=== PATIENT | female | born 1940 | race Caucasian/White ===

== ENCOUNTER 2016-10-15 12:18 | Inpatient (IN) | payer MEDICARE, MEDICAID ==
[2016-10-15] MEDS ORDERED: Sodium Chloride 0.9% 10 ML Syringe FLUSH PRN (13:19)
--- NOTE | 2016-10-15 13:24 | EDM.PDOC ---
ED HPI GENERAL MEDICAL PROBLEM - General Chief Complaint: Syncope Stated Complaint: DIZZY Time Seen by Provider: 10/15/16 13:08 Source of Information: Reports: Patient History Limitations: Reports: No Limitations - History of Present Illness INITIAL COMMENTS - FREE TEXT/NARRATIVE: Patient is a 76-year-old female who presents to the ED complaining of dizziness with standing and sitting. Patient states while having her eyes checked she developed dizziness with sitting and had a blood pressure check found it to be a 82 systolic. Upon admission blood pressure is 106/61 with laying. Patient did feel like she was going to pass out. This was resolved with laying down. She is mildly nauseated. She's had one episode of diarrhea yesterday. No blood present with in her stool. She has no pain with urination. She denies any chest pain. Denies increasing shortness of breath. She is chronically on O2 secondary to COPD. O2 sats are 87% on room air. She was placed on 3 L per minute and brought her O2 sats up to 96%. She denies any fever/chills, sore throat, sinus congestion, ear pain, sensation of room spinning, increase edema lower extremities, or additional complaints. Husbands states patient has not being feeling well all year. Took diltiazem and valsartan this a.m. She has no history of DVT/PE and/or valvular disorders. Past Medical History: Breast cancer, COPD, hypertension, GERD Current Medictions: Arformoterol [Brovana] 15 mcg NEB BID 01/13/15 [History] Aspirin [Provencal Aspirin] 81 mg PO DAILY 01/13/15 [History] Benztropine [Cogentin] 1 mg PO DAILY 01/13/15 [History] Budesonide [Pulmicort] 0.5 mg NEB BID 01/13/15 [History] Diltiazem HCl [Cartia Xt] 120 mg PO DAILY 01/13/15 [History] Docusate Sodium [Stool Softener] 200 mg PO ASDIRECTED PRN 01/13/15 [History] Ipratropium [Atrovent HFA Inh] 1 puff INH Q6H PRN 01/13/15 [History] Pantoprazole [Protonix] 40 mg PO DAILY 01/13/15 [History] Trifluoperazine 20 mg PO DAILY 01/13/15 [History] Valsartan 80 mg PO DAILY 01/13/15 [History] Onset: Today Duration: Constant, Waxing/Waning Location: Reports: Generalized Quality: Reports: Other (dizziness) Improves with: Reports: Other (laying down) Worsens with: Reports: Other (sitting/standing) Context: Denies: Activity, Sick Contact, Trauma - Related Data Allergies Allergy/AdvReac Type Severity Reaction Status Date / Time azithromycin Allergy Cannot Verified 10/15/16 18:59 Remember Sulfa (Sulfonamide Allergy Cannot Verified 10/15/16 18:59 Antibiotics) Remember Home Meds: Home Meds Arformoterol [Brovana] 15 mcg NEB BID 01/13/15 [History] Aspirin [Provencal Aspirin] 81 mg PO DAILY 01/13/15 [History] Benztropine [Cogentin] 1 mg PO DAILY 01/13/15 [History] Budesonide [Pulmicort] 0.5 mg NEB BID 01/13/15 [History] Diltiazem HCl [Cartia Xt] 120 mg PO DAILY 01/13/15 [History] Docusate Sodium [Stool Softener] 200 mg PO ASDIRECTED PRN 01/13/15 [History] Ipratropium [Atrovent HFA Inh] 1 puff INH Q6H PRN 01/13/15 [History] Pantoprazole [Protonix] 40 mg PO DAILY 01/13/15 [History] Trifluoperazine 20 mg PO DAILY 01/13/15 [History] Valsartan 80 mg PO DAILY 01/13/15 [History] Past Medical History HEENT History: Reports: Impaired Vision Cardiovascular History: Reports: Hypertension Respiratory History: Reports: Asthma, COPD Gastrointestinal History: Reports: Cholelithiasis, GERD, Hemorrhoids Genitourinary History: Reports: None 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 (Cancer) History: Reports: Breast - Past Surgical History GI Surgical History: Reports: Cholecystectomy, Colonoscopy, EGD Social & Family History - Family History Family Medical History: Noncontributory - Tobacco Use Smoking Status *Q: Former Smoker Used Tobacco, but Quit: No Month Tobacco Last Used: 1999 - Caffeine Use Caffeine Use: Reports: Coffee - Recreational Drug Use Recreational Drug Use: No ED ROS GENERAL - Review of Systems Review Of Systems: See Below Constitutional: Reports: No Symptoms HEENT: Reports: No Symptoms Respiratory: Reports: Shortness of Breath, Cough, Sputum Cardiovascular: Denies: Chest Pain, Dyspnea on Exertion, Lightheadedness, Palpitations, Syncope GI/Abdominal: Reports: Nausea. Denies: Abdominal Pain, Constipation, Diarrhea, Vomiting : Denies: Dysuria Musculoskeletal: Reports: No Symptoms Neurological: Reports: Dizziness (room is not spinning). Denies: Confusion, Headache, Numbness, Syncope, Tingling ED EXAM, GENERAL - Physical Exam Exam: See Below Exam Limited By: No Limitations General Appearance: Alert, WD/WN, No Apparent Distress Eye Exam: Bilateral Eye: PERRL Ears: Hearing Grossly Normal Nose: Normal Inspection Throat/Mouth: Normal Inspection, Normal Oropharynx, Normal Voice, No Airway Compromise Neck: Normal Inspection, Supple, Non-Tender, Full Range of Motion Respiratory/Chest: No Respiratory Distress, No Accessory Muscle Use, Rhonchi, Wheezing Cardiovascular: Normal Peripheral Pulses, Regular Rate, Rhythm, Systolic Murmur Peripheral Pulses: 2+: Radial (R) GI/Abdominal: Normal Bowel Sounds, Soft, Non-Tender, No Organomegaly, No Distention Extremities: Normal Inspection, Non-Tender, Pedal Edema (1+ biltarally) Neurological: Alert, Oriented, CN II-XII Intact, Normal Cognition, No Motor/ Sensory Deficits Psychiatric: Normal Affect, Normal Mood Skin Exam: Warm, Dry, Intact, Normal Color, No Rash Course - Vital Signs Last Recorded V/S: Last Vital Signs Temp 97.7 F 10/15/16 19:06 Pulse 82 10/15/16 19:07 Resp 20 10/15/16 19:06 BP 163/58 H 10/15/16 19:07 Pulse Ox 100 10/15/16 19:08 Orthostatic Blood Pressure [ 130/65 Standing] Orthostatic Blood Pressure [ 138/65 Sitting] Orthostatic Blood Pressure [ 88/65 Supine] - Orders/Labs/Meds Orders: Active Orders 24 hr Category Date Time Status Ambulate [RC] ASDIRECTED Care 10/15/16 16:56 Active Antiembolic Devices [RC] QSHIFT Care 10/15/16 16:58 Active Cardiac Monitoring [RC] CONTINUOUS Care 10/15/16 16:57 Active EKG Documentation Completion [RC] STAT Care 10/15/16 13:19 Active Height and Weight [RC] 04 Care 10/15/16 16:56 Active Intake and Output [RC] 04,16 Care 10/15/16 16:57 Active Orthostatic Vital Signs [RC] ASDIRECTED Care 10/15/16 13:23 Active Oxygen Therapy [RC] PRN Care 10/15/16 16:56 Active RT Aerosol Therapy [RC] ASDIRECTED Care 10/15/16 16:58 Active Up ad Cherelle [RC] ASDIRECTED Care 10/15/16 16:56 Active VTE/DVT Education [RC] PER UNIT ROUTINE Care 10/15/16 16:56 Active Vital Signs [RC] Q4HR Care 10/15/16 16:56 Active Consult to Case Management [CONS] Routine Cons 10/15/16 16:59 Active Consult to Grounds Cleaner [CONS] Routine Cons 10/15/16 16:59 Active Consult to Spiritual Care [CONS] Routine Cons 10/15/16 16:59 Active OT Evaluation and Treatment [CONS] Routine Cons 10/15/16 16:59 Active PT Evaluation and Treatment [CONS] Routine Cons 10/15/16 16:59 Active Regular Diet [DIET] Diet 10/15/16 Dinner Active Brain wo Cont [MR] Stat Exams 10/15/16 17:08 Ordered Echo Comp wo Cont [US] Routine Exams 10/16/16 07:00 Ordered BASIC METABOLIC PANEL,BMP [CHEM] AM Lab 10/16/16 05:11 Ordered BASIC METABOLIC PANEL,BMP [CHEM] AM Lab 10/17/16 05:11 Ordered BASIC METABOLIC PANEL,BMP [CHEM] AM Lab 10/18/16 05:11 Ordered BASIC METABOLIC PANEL,BMP [CHEM] AM Lab 10/19/16 05:11 Ordered BASIC METABOLIC PANEL,BMP [CHEM] AM Lab 10/20/16 05:11 Ordered CBC WITH AUTO DIFF [HEME] AM Lab 10/16/16 05:11 Ordered CBC WITH AUTO DIFF [HEME] AM Lab 10/17/16 05:11 Ordered CBC WITH AUTO DIFF [HEME] AM Lab 10/18/16 05:11 Ordered CBC WITH AUTO DIFF [HEME] AM Lab 10/19/16 05:11 Ordered CBC WITH AUTO DIFF [HEME] AM Lab 10/20/16 05:11 Ordered MAGNESIUM [CHEM] AM Lab 10/16/16 05:11 Ordered MAGNESIUM [CHEM] AM Lab 10/17/16 05:11 Ordered MAGNESIUM [CHEM] AM Lab 10/18/16 05:11 Ordered MAGNESIUM [CHEM] AM Lab 10/19/16 05:11 Ordered MAGNESIUM [CHEM] AM Lab 10/20/16 05:11 Ordered Acetaminophen [Tylenol] Med 10/15/16 16:56 Active 650 mg PO Q4H PRN Acetaminophen/HYDROcodone [[place] 325-5 MG] Med 10/15/16 16:56 Active 1 tab PO Q4H PRN Albuterol/Ipratropium [DuoNeb 3.0-0.5 MG/3 ML] Med 10/15/16 16:56 Active 3 ml NEB Q4H PRN Arformoterol Med 10/15/16 21:00 Pending 15 mcg NEB BID Aspirin Med 10/16/16 09:00 Active 81 mg PO DAILY Benztropine [Cogentin] Med 10/16/16 09:00 Active 1 mg PO DAILY Bisacodyl [Dulcolax] Med 10/15/16 16:56 Active 5 mg PO DAILY PRN Budesonide [Pulmicort] Med 10/15/16 21:00 Active 0.5 mg NEB BID Docusate Sodium [Stool Softener] Med 10/15/16 17:01 Pending 200 mg PO ASDIRECTED PRN Docusate Sodium/Sennosides [Senna Plus] Med 10/15/16 16:56 Active 1 tab PO BID PRN HYDROmorphone [Dilaudid] Med 10/15/16 17:16 Active 0.25 mg IVPUSH Q2H PRN Ipratropium [Atrovent HFA] Med 10/15/16 17:01 Active 0 gm INH Q6H PRN LORazepam [Ativan] Med 10/15/16 16:56 Active 0.5 mg IV Q6H PRN Meclizine [Antivert] Med 10/15/16 17:10 Active 25 mg PO Q6H PRN Ondansetron [Zofran] Med 10/15/16 16:56 Active 4 mg IV Q6H PRN Polyethylene Glycol 3350 [MiraLAX] Med 10/15/16 16:56 Active 17 gm PO DAILY PRN Promethazine [Phenergan] 12.5 mg Med 10/15/16 16:56 Active Sodium Chloride 0.9% [Normal Saline] 50 ml IV Q6H Sodium Chloride 0.9% [Normal Saline] 1,000 ml Med 10/15/16 17:15 Active IV ASDIRECTED Sodium Chloride 0.9% [Saline Flush] Med 10/15/16 13:19 Active 10 ml FLUSH ASDIRECTED PRN Temazepam [Restoril] Med 10/15/16 17:30 Active 7.5 mg PO BEDTIME PRN Trifluoperazine Med 10/16/16 09:00 Active 20 mg PO DAILY Peripheral IV Insertion Adult [OM.PC] Stat Oth 10/15/16 13:19 Ordered Precautions [COMM] Routine Ot 10/15/16 17:10 Ordered Sequential Compression Device [OM.PC] Per Unit Routine Oth 10/15/16 16:57 Ordered Resuscitation Status Routine Resus Stat 10/15/16 16:56 Ordered Medication Orders Acetaminophen (Tylenol) 650 mg PO Q4H PRN PRN Reason: Pain (Mild 1-3)/fever Hydrocodone Bitart/Acetaminophen ([place] 325-5 Mg) 1 tab PO Q4H PRN PRN Reason: Pain (moderate 4-6) Albuterol/Ipratropium (Duoneb 3.0-0.5 Mg/3 Ml) 3 ml NEB Q4H PRN PRN Reason: Shortness Of Breath/wheezing Aspirin (Aspirin) 81 mg PO DAILY MAREK Benztropine Mesylate (Cogentin) 1 mg PO DAILY MAREK Bisacodyl (Dulcolax) 5 mg PO DAILY PRN PRN Reason: Constipation Budesonide (Pulmicort) 0.5 mg NEB BID MAREK Hydromorphone HCl (Dilaudid) 0.25 mg IVPUSH Q2H PRN PRN Reason: Pain (severe 7-10) Promethazine HCl 12.5 mg/ (Sodium Chloride) 50.5 mls @ 100 mls/hr IV Q6H PRN PRN Reason: Nausea/Vomiting Sodium Chloride (Normal Saline) 1,000 mls @ 100 mls/hr IV ASDIRECTED MAREK Ipratropium [place] (Atrovent Hfa) 0 gm INH Q6H PRN PRN Reason: Shortness of Breath Lorazepam (Ativan) 0.5 mg IV Q6H PRN PRN Reason: Anxiety Meclizine HCl (Antivert) 25 mg PO Q6H PRN PRN Reason: Dizziness Non-Formulary Medication (Arformoterol) 15 mcg NEB BID MAREK Non-Formulary Medication (Docusate Sodium [Stool Softener]) 200 mg PO ASDIRECTED PRN PRN Reason: Constipation Ondansetron HCl (Zofran) 4 mg IV Q6H PRN PRN Reason: Nausea/Vomiting Polyethylene Glycol (Miralax) 17 gm PO DAILY PRN PRN Reason: Constipation Senna/Docusate Sodium (Senna Plus) 1 tab PO BID PRN PRN Reason: Constipation Sodium Chloride (Saline Flush) 10 ml FLUSH ASDIRECTED PRN PRN Reason: Keep Vein Open Last Admin: 10/15/16 13:36 Dose: 10 ml Temazepam (Restoril) 7.5 mg PO BEDTIME PRN PRN Reason: Sleep Trifluoperazine HCl (Trifluoperazine) 20 mg PO DAILY [facility] Labs: Laboratory Tests 10/15/16 10/15/16 10/15/16 Range/Units 13:35 13:35 14:40 WBC 7.80 (3.98-10.04) K/mm3 RBC 4.57 (3.98-5.22) M/mm3 Hgb 13.3 (11.2-15.7) gm/L Hct 41.1 (34.1-44.9) % MCV 89.9 (79.4-94.8) fl MCH 29.1 (25.6-32.2) pg MCHC 32.4 (32.2-35.5) g/dl RDW Std Deviation 44.6 (36.4-46.3) fL Plt Count 222 (182-369) K/mm3 MPV 10.3 (9.4-12.3) fl Neut % (Auto) 71.2 H (34.0-71.1) % Lymph % (Auto) 17.1 L (19.3-51.7) % [place] % (Auto) 10.1 (4.7-12.5) % Eos % (Auto) 1.4 (0.7-5.8) Baso % (Auto) 0.1 (0.1-1.2) % Neut # (Auto) 5.55 (1.56-6.13) K/mm3 Lymph # (Auto) 1.33 (1.18-3.74) K/mm3 [place] # (Auto) 0.79 H (0.24-0.36) K/mm3 Eos # (Auto) 0.11 (0.04-0.36) K/mm3 Baso # (Auto) 0.01 (0.01-0.08) K/mm3 Sodium 144 (136-145) mEq/L Potassium 3.7 (3.5-5.1) mEq/L Chloride 107 (98-107) mEq/L Carbon Dioxide 33 H (21-32) mEq/L Anion Gap 7.7 (5-15) BUN 18 (7-18) mg/dL Creatinine 1.2 H (0.55-1.02) mg/dL Est Cr Clr Drug Dosing 40.38 mL/min Estimated GFR (MDRD) 43 (>60) mL/min BUN/Creatinine Ratio 15.0 (14-18) Glucose 115 (83-115) mg/dL Calcium 9.5 (8.5-10.1) mg/dL Total Bilirubin 0.5 (0.2-1.0) mg/dL AST 17 (15-37) U/L ALT 19 (14-59) U/L Alkaline Phosphatase 93 (46-116) U/L Troponin I < 0.017 (0.00-0.056) ng/mL Total Protein 6.7 (6.4-8.2) g/dl Albumin 3.3 L (3.4-5.0) g/dl Globulin 3.4 gm/dL Albumin/Globulin Ratio 1.0 (1-2) TSH 3rd Generation 2.139 (0.358-3.74) uIU/mL Urine Color Yellow (Yellow) Urine Appearance Slt cloudy H (Clear) Urine pH 5.5 (5.0-8.0) Ur Specific [place] 1.025 (1.005-1.030) Urine Protein 2+ H (Negative) Urine Glucose (UA) Negative (Negative) Urine Ketones Trace H (Negative) Urine Occult Blood Trace-intact H (Negative) Urine Nitrite Negative (Negative) Urine Bilirubin 2+ H (Negative) Urine Urobilinogen 1.0 (0.2-1.0) Ur Leukocyte Esterase Negative (Negative) Urine RBC 0-5 (0-5) /hpf Urine WBC 0-5 (0-5) /hpf Ur Epithelial Cells Not Reportable Ur Squamous Epith Cells 5-10 H (0-5) /hpf Amorphous Sediment Moderate H (NOT SEEN) /hpf Urine Bacteria Moderate H (FEW) /hpf Hyaline Casts 20-30 H (0-5) /lpf Urine Mucus Not seen (FEW) /hpf Meds: Medications Generic Name Dose Route Start Last Admin Trade Name Freq PRN Reason Stop Dose Admin Acetaminophen 650 mg 10/15/16 16:56 Tylenol PO Q4H PRN Pain (Mild 1-3)/fever Hydrocodone Bitart/Acetaminophen 1 tab 10/15/16 16:56 [place] 325-5 Mg PO Q4H PRN Pain (moderate 4-6) Albuterol/Ipratropium 3 ml 10/15/16 16:56 Duoneb 3.0-0.5 Mg/3 Ml NEB Q4H PRN Shortness Of Breath/wheezing Aspirin 81 mg 10/16/16 09:00 Aspirin PO DAILY MAREK Benztropine Mesylate 1 mg 10/16/16 09:00 Cogentin PO DAILY MAREK Bisacodyl 5 mg 10/15/16 16:56 Dulcolax PO DAILY PRN Constipation Budesonide 0.5 mg 10/15/16 21:00 Pulmicort NEB BID MAREK Hydromorphone HCl 0.25 mg 10/15/16 17:16 Dilaudid IVPUSH Q2H PRN Pain (severe 7-10) Promethazine HCl 12.5 mg/ 50.5 mls @ 100 mls/hr 10/15/16 16:56 Sodium Chloride IV Q6H PRN Nausea/Vomiting Sodium Chloride 1,000 mls @ 100 mls/hr 10/15/16 17:15 Normal Saline IV ASDIRECTED MAREK Ipratropium [place] 0 gm 10/15/16 17:01 Atrovent Hfa INH Q6H PRN Shortness of Breath Lorazepam 0.5 mg 10/15/16 16:56 Ativan IV Q6H PRN Anxiety Meclizine HCl 25 mg 10/15/16 17:10 Antivert PO Q6H PRN Dizziness Non-Formulary Medication 15 mcg 10/15/16 21:00 Arformoterol NEB BID MAREK Non-Formulary Medication 200 mg 10/15/16 17:01 Docusate Sodium [Stool Softener] PO ASDIRECTED PRN Constipation Ondansetron HCl 4 mg 10/15/16 16:56 Zofran IV Q6H PRN Nausea/Vomiting Polyethylene Glycol 17 gm 10/15/16 16:56 Miralax PO DAILY PRN Constipation Senna/Docusate Sodium 1 tab 10/15/16 16:56 Senna Plus PO BID PRN Constipation Sodium Chloride 10 ml 10/15/16 13:19 10/15/16 13:36 Saline Flush FLUSH 10 ml ASDIRECTED PRN Administration Keep Vein Open Temazepam 7.5 mg 10/15/16 17:30 Restoril PO BEDTIME PRN Sleep Trifluoperazine HCl 20 mg 10/16/16 09:00 Trifluoperazine PO DAILY MAREK Discontinued Medications Generic Name Dose Route Start Last Admin Trade Name Freq PRN Reason Stop Dose Admin Hydromorphone HCl 0.25 mg 10/15/16 16:56 Dilaudid IVPUSH Q2H PRN Pain (severe 7-10) Sodium Chloride 500 mls @ 250 mls/hr 10/15/16 13:26 10/15/16 13:35 Normal Saline IV 10/15/16 15:25 250 mls/hr .BOLUS ONE Administration - Re-Assessments/Exams Free Text/Narrative Re-Assessment/Exam: 10/15/16 13:28 ordered peripheral IV with normal saline 250 mL per hour bolus. Initial labs/studies include: Chest x-ray, CBC, chem 14, troponin, TSH, UA, Hemoccult, and also orthostatic vitals. Orthostatic vitals were positive. EKG revealed: Sinus rhythm at a rate of 73 with multiple multifocal PVCs, no acute ST changes noted. Chest x-ray revealed: No acute findings. Reviewed with Dr. Jane. Final interpretation pending. Labs reveal: CBC and chem 14 were essentially normal. Creatinine 1.2, TSH 2.139 , troponin less than 0.017. 10/15/16 14:07 Hemoccult was negative. 10/15/16 15:[address] Jane suggested stopping the diltiazem and have the patient reevaluated in 1-2 weeks in the clinic for further evaluation and treatment of blood pressure. Patient states she has a history of CHF. NO echocardiogram obtained here. Do not want to fluid overload her thus stopped at 500 mls bolus of ns. Orthostatic hypotension has not resolved. 10/15/16 16:[address] Bran leasing consultant hospitalist he requests obtaining MRI of the brain with and without contrast. Radiology was contacted unable to at this point. 10/15/16 16:44 MCG obtained. Patient meets inpatient status do to orthostatic vitals and dizziness. 10/15/16 16:56 Reassessment, blood pressure with standing is trending upward. Last BP was 100 systolic. Patient's dizziness is improving. She did ambulate to the bathroom with minimal difficulties. She does not want to be admitted to the hospital. Will monitor the patient for another hour and ensure her blood pressure continues to trend northward. Patient is okay with this plan. If trending downward patient will be admitted to the hospital. 10/15/16 18:20 BP Recheck 90/systolic with dizziness. Attempted to contact Dr. Bran with no luck. Will attempt again in a few minutes. 183 Nursing staff has been in contact with Dr. Bran and nursing staff. Patient will be admitted to observation for hypotension/dizziness. Departure - Departure Time of Disposition: 18:33 Disposition: Refer to Observation Condition: good Clinical Impression: Hypotension due to drugs, Dizziness - My Orders Last 24 Hours: My Active Orders 10/15/16 13:19 EKG Documentation Completion [RC] STAT Sodium Chloride 0.9% [Saline Flush] 10 ml FLUSH ASDIRECTED PRN Peripheral IV Insertion Adult [OM.PC] Stat 10/15/16 13:23 Orthostatic Vital Signs [RC] ASDIRECTED - Assessment/Plan Last 24 Hours: My Active Orders 10/15/16 13:19 EKG Documentation Completion [RC] STAT Sodium Chloride 0.9% [Saline Flush] 10 ml FLUSH ASDIRECTED PRN Peripheral IV Insertion Adult [OM.PC] Stat 10/15/16 13:23 Orthostatic Vital Signs [RC] ASDIRECTED
[2016-10-15] MEDS ORDERED: Sodium Chloride 0.9% 500 ML IV ONE (13:26)
--- NOTE | 2016-10-15 15:45 | CR ---
Chest: Two views of the chest were obtained. Comparison: Previous chest x-ray of 02/10/16. Heart size and mediastinum are normal. Minimal apical pleural thickening is seen which is stable. Lungs are clear with no acute infiltrates. Impression: 1. Hyperinflated lungs compatible with emphysematous change. Nothing acute is appreciated on two-view chest x-ray. Diagnostic code #2
[2016-10-15] MEDS ORDERED: Albuterol/Ipratropium 3.0-0.5 MG/3 ML Neb Soln NEB PRN (16:56)
[2016-10-15] MEDS ORDERED: Bisacodyl 5 MG Tab PO PRN (16:56)
[2016-10-15] MEDS ORDERED: Promethazine 12.5 MG in Sodium Chloride 0.9% 50 ML IV PRN (16:56)
[2016-10-15] MEDS ORDERED: Polyethylene Glycol 3350 Powder 17 GM Packet PO PRN (16:56)
[2016-10-15] MEDS ORDERED: Acetaminophen 325 MG Tab PO PRN (16:56)
[2016-10-15] MEDS ORDERED: Ondansetron 4 MG/2 ML SDV IV PRN (16:56)
[2016-10-15] MEDS ORDERED: Acetaminophen/HYDROcodone 325-5 MG Tab PO PRN (16:56)
[2016-10-15] MEDS ORDERED: LORazepam 2 MG/ML MDV IV PRN (16:56)
[2016-10-15] MEDS ORDERED: HYDROmorphone 1 MG/ML Syringe IVPUSH PRN (16:56)
--- NOTE | 2016-10-15 16:56 | PCM.HP ---
H&P History of Present Illness - General Date of Service: 10/15/16 Admit Problem/Dx: Orthostatic Hypotension and Dizziness Source of Information: Patient, Old Records, Provider, RN Notes Reviewed History Limitations: Reports: No Limitations - History of Present Illness Initial Comments - Free Text/Narative: This is a 76-year-old elderly white female with past medical history of COPD, hypertension, GERD, cholelithiasis, and questionable Parkinsonian syndrome who comes in with complaints dizziness with standing and sitting. Patient states she almost passed out. Her symptom improves with laying down. She is nauseated but without emesis. She denies any previous history in the past. Patient denies any systemic infection. No recent upper respiratory infection. Per patient patient she has not been feeling well all year. On presentation the emergency department she was found to have orthostatic hypotension. Her initial ED workup shows a fairly unremarkable her CBC and chemistry. Her UA shows contamination. EKG shows sinus rhythm with multiple PVCs. She is Hemoccult negative. CT scan report of her head reads no acute intracranial abnormality. Patient is being admitted for medical management and evaluation of dizziness/dis -equilibrium. She is CPR only. Neck Pain Score (Numeric/FACES): 8 - Related Data Allergies/Adverse Reactions: Allergies Allergy/AdvReac Type Severity Reaction Status Date / Time azithromycin Allergy Cannot Verified 10/15/16 18:59 Remember Sulfa (Sulfonamide Allergy Cannot Verified 10/15/16 18:59 Antibiotics) Remember Home Medications: Home Meds Arformoterol [Brovana] 15 mcg NEB BID 01/13/15 [History] Aspirin [[place] Aspirin] 81 mg PO DAILY 01/13/15 [History] Benztropine [Cogentin] 1 mg PO DAILY 01/13/15 [History] Budesonide [Pulmicort] 0.5 mg NEB BID 01/13/15 [History] Diltiazem HCl [[place] Xt] 120 mg PO DAILY 01/13/15 [History] Docusate Sodium [Stool Softener] 200 mg PO ASDIRECTED PRN 01/13/15 [History] Ipratropium [Atrovent HFA Inh] 1 puff INH Q6H PRN 01/13/15 [History] Pantoprazole [Protonix] 40 mg PO DAILY 01/13/15 [History] Trifluoperazine 20 mg PO DAILY 01/13/15 [History] Valsartan 80 mg PO DAILY 01/13/15 [History] Past Medical History HEENT History: Reports: Impaired Vision Cardiovascular History: Reports: Hypertension Respiratory History: Reports: Asthma, COPD Gastrointestinal History: Reports: Cholelithiasis, GERD, Hemorrhoids Genitourinary History: Reports: None SIDE STAPLER History: Reports: Oncologic (Cancer) History: Reports: Breast - Past Surgical History GI Surgical History: Reports: Cholecystectomy, Colonoscopy, EGD Social & Family History - Family History Family Medical History: Noncontributory - Tobacco Use Smoking Status *Q: Former Smoker Used Tobacco, but Quit: No Month Tobacco Last Used: 1999 - Caffeine Use Caffeine Use: Reports: Coffee - Recreational Drug Use Recreational Drug Use: No H&P Review of Systems - Review of Systems: Review Of Systems: See Below General: Denies: Fever, Chills, Malaise, Weakness, Fatigue HEENT: Reports: No Symptoms Pulmonary: Reports: Shortness of Breath, Cough, Sputum Cardiovascular: Reports: Blood Pressure Problem. Denies: Chest Pain, Palpitations, Dyspnea on Exertion, Lightheadedness, Syncope, Claudication Gastrointestinal: Denies: Abdominal Pain, Nausea, Vomiting Genitourinary: Reports: No Symptoms Musculoskeletal: Reports: No Symptoms Skin: Denies: Cyanosis, Rash, Erythema Psychiatric: Denies: Depression, Anxiety, Hallucinations Neurological: Reports: Dizziness. Denies: Confusion, Difficulty Walking, Weakness, Gait Disturbance Hematologic/Lymphatic: Reports: No Symptoms Immunologic: Reports: No Symptoms Exam - Exam Exam: See Below - Vital Signs Vital Signs: Last Vital Signs Temp 36.2 C 10/15/16 13:02 Pulse 71 10/15/16 13:02 Resp 18 10/15/16 13:02 BP 106/61 10/15/16 13:02 Pulse Ox 87 L 10/15/16 13:02 Orthostatic Blood Pressure [ 130/65 Standing] Orthostatic Blood Pressure [ 138/65 Sitting] Orthostatic Blood Pressure [ 88/65 Supine] Weight: 78.925 kg - Exam General: Alert, Oriented, Cooperative, Mild Distress HEENT: Conjunctiva Clear, EACs Clear, EOMI, Hearing Intact, Mucosa Moist & [place] [address] , Nares Patent, Normal Nasal Septum, Posterior Pharynx Clear, Pupils Equal, Pupils Reactive, Other (No nystagmus) Neck: Supple, Trachea Midline Lungs: Clear to Auscultation, Normal Respiratory Effort Cardiovascular: Regular Rate, Regular Rhythm Abdomen: Normal Bowel Sounds, Soft. No: Organomegaly, Tenderness (Female) Exam: Deferred Rectal (Female) Exam: Deferred Back Exam: Normal Inspection, Decreased Range of Motion Extremities: Normal Inspection, Normal Pulses Peripheral Pulses: 2+: Posterior Tibial (L), Posterior Tibial (R), Dorsalis Pedis (L), Dorsalis Pedis (R) Skin: Warm, Dry, Intact Neuro Extensive - Mental Status: Oriented x3, Normal Cognition, Memory Intact Neuro Extensive - Motor, Sensory, Reflexes: CN II-XII Intact (limited but fairly intact), Abnormal Gait Psychiatric: Alert, Normal Affect, Normal Mood - Patient Data Lab Results last 24 hrs: Laboratory Results - last 24 hr 10/15/16 10/15/16 10/15/16 Range/Units 13:35 13:35 14:40 WBC 7.80 (3.98-10.04) K/mm3 RBC 4.57 (3.98-5.22) M/mm3 Hgb 13.3 (11.2-15.7) gm/L Hct 41.1 (34.1-44.9) % MCV 89.9 (79.4-94.8) fl MCH 29.1 (25.6-32.2) pg MCHC 32.4 (32.2-35.5) g/dl RDW Std Deviation 44.6 (36.4-46.3) fL Plt Count 222 (182-369) K/mm3 MPV 10.3 (9.4-12.3) fl Neut % (Auto) 71.2 H (34.0-71.1) % Lymph % (Auto) 17.1 L (19.3-51.7) % [place] % (Auto) 10.1 (4.7-12.5) % Eos % (Auto) 1.4 (0.7-5.8) Baso % (Auto) 0.1 (0.1-1.2) % Neut # (Auto) 5.55 (1.56-6.13) K/mm3 Lymph # (Auto) 1.33 (1.18-3.74) K/mm3 [place] # (Auto) 0.79 H (0.24-0.36) K/mm3 Eos # (Auto) 0.11 (0.04-0.36) K/mm3 Baso # (Auto) 0.01 (0.01-0.08) K/mm3 Sodium 144 (136-145) mEq/L Potassium 3.7 (3.5-5.1) mEq/L Chloride 107 (98-107) mEq/L Carbon Dioxide 33 H (21-32) mEq/L Anion Gap 7.7 (5-15) BUN 18 (7-18) mg/dL Creatinine 1.2 H (0.55-1.02) mg/dL Est Cr Clr Drug Dosing 40.38 mL/min Estimated GFR (MDRD) 43 (>60) mL/min BUN/Creatinine Ratio 15.0 (14-18) Glucose 115 (83-115) mg/dL Calcium 9.5 (8.5-10.1) mg/dL Total Bilirubin 0.5 (0.2-1.0) mg/dL AST 17 (15-37) U/L ALT 19 (14-59) U/L Alkaline Phosphatase 93 (46-116) U/L Troponin I < 0.017 (0.00-0.056) ng/mL Total Protein 6.7 (6.4-8.2) g/dl Albumin 3.3 L (3.4-5.0) g/dl Globulin 3.4 gm/dL Albumin/Globulin Ratio 1.0 (1-2) TSH 3rd Generation 2.139 (0.358-3.74) uIU/mL Urine Color Yellow (Yellow) Urine Appearance Slt cloudy H (Clear) Urine pH 5.5 (5.0-8.0) Ur Specific [place] 1.025 (1.005-1.030) Urine Protein 2+ H (Negative) Urine Glucose (UA) Negative (Negative) Urine Ketones Trace H (Negative) Urine Occult Blood Trace-intact H (Negative) Urine Nitrite Negative (Negative) Urine Bilirubin 2+ H (Negative) Urine Urobilinogen 1.0 (0.2-1.0) Ur Leukocyte Esterase Negative (Negative) Urine RBC 0-5 (0-5) /hpf Urine WBC 0-5 (0-5) /hpf Ur Epithelial Cells Not Reportable Ur Squamous Epith Cells 5-10 H (0-5) /hpf Amorphous Sediment Moderate H (NOT SEEN) /hpf Urine Bacteria Moderate H (FEW) /hpf Hyaline Casts 20-30 H (0-5) /lpf Urine Mucus Not seen (FEW) /hpf Result Diagrams: 10/16/16 06:47 10/16/16 06:47 *Q Meaningful Use (ADM) - VTE *Q VTE Criteria *Q: - Stroke *Q Stroke Criteria *Q: - AMI *Q AMI Criteria *Q: Problem List Initiated/Reviewed/Updated: Yes Orders Last 24hrs: Active Orders 24 hr Category Date Time Status EKG Documentation Completion [RC] STAT Care 10/15/16 13:19 Active Orthostatic Vital Signs [RC] ASDIRECTED Care 10/15/16 13:23 Active Peripheral IV Care [RC] . DIRECTED Care 10/15/16 13:19 Active Sodium Chloride 0.9% [Saline Flush] Med 10/15/16 13:19 Active 10 ml FLUSH ASDIRECTED PRN Peripheral IV Insertion Adult [OM.PC] Stat Oth 10/15/16 13:19 Ordered Medication Orders Sodium Chloride (Saline Flush) 10 ml FLUSH ASDIRECTED PRN PRN Reason: Keep Vein Open Last Admin: 10/15/16 13:36 Dose: 10 ml Assessment/Plan Comment:: Assessment/Plan: Acute: Orthostatic Hypotension - Had near syncope - Pos with BP as low at 88/65 mmHg - On BP meds: Cardizem 120 mg po daily and Valsartan 80 mg po daily - IVF to improve volume status Dizziness/Disequilibrium (Unsteadiness) - Has Hx/o Abnormal Rhythm (racing and pounding heart beats in the past) - EKG Sinus Rhythm with multiple PVCs - Head CT scan reads no acute intra-cranial abnormality - MRI to r/o vestibular and cerebellar abnormality - She is on multiple meds to cause dizziness - 2D echo and EKG in am - Labs fairly unremarkable - PRN medications for symptomatic control - Telemetry Chronic: Impaired Vision HTN COPD/Asthma GERD Cholelithiasis CKD Stage 3 Query PD/Parkinson's Syndrome (Trifluoperazine and Cogentin) Hx/o Breast Cancer Plan: Admit to the floor w/ Tele Routine AM Labs Resume Home Meds except BP meds PT/OT consult Fall Precautions SW/CM for d/c planning Additional orders as above Code status: CPR only
[2016-10-15] MEDS ORDERED: Ipratropium 12.9 GM Inhaler INH PRN (17:01)
[2016-10-15] MEDS ORDERED: Docusate Sodium 100 MG Cap PO PRN (17:01)
[2016-10-15] MEDS ORDERED: HYDROmorphone 0.5 MG/0.5 ML Syringe IVPUSH PRN (17:16)
[2016-10-15] MEDS ORDERED: Temazepam 7.5 MG Cap PO PRN (17:30)
--- NOTE | 2016-10-15 17:31 | CT ---
Head CT Technique: Multiple axial sections through the brain were obtained. Intravenous contrast was not utilized. Comparison: No previous head CT exam, previous MRI brain dated 04/19/09. Findings: Ventricles along the basal cisterns and sulci over the convexities are mildly prominent. Mild areas of diminished density are noted within the periventricular and subcortical white matter compatible with small vessel ischemic demyelination change. No evidence of intracranial hemorrhage is seen. Minimal areas diminished density noted within portions the basal ganglia which are felt to be of similar etiology. No midline shift or mass effect is seen. Bone window settings were reviewed which shows no discrete calvarial abnormality. Impression: 1. Mild senescent change as described above. No acute intracranial abnormality is identified. Diagnostic code #2
[2016-10-15] MEDS ORDERED: BUDESONIDE 0.5 MG/2 ML NEB SCH (21:00)
[2016-10-15] MEDS ORDERED: Scopolamine 1.5 MG Transdermal Patch TOP ONE (23:29)
[2016-10-15] MEDS ORDERED: Diphtheria,Pertussis(Acell),Tetanus Vaccine 0.5 ML SDV inactive IM ONE (23:48)
[2016-10-16] MEDS: BENZTROPINE 1 MG PO SCH ×2 (00:05→20:51)
[2016-10-16] MEDS: TRIFLUOPERAZINE 10 MG PO SCH ×2 (00:05→20:51)
[2016-10-16] MEDS: Sodium Chloride 0.9% 1,000 ML IV SCH ×2 (00:46→12:40)
[2016-10-16] MEDS: BUDESONIDE 0.5 MG/2 ML NEB SCH ×3 (02:54→20:39)
[2016-10-16] MEDS ORDERED: Diphtheria,Pertussis(Acell),Tetanus Vaccine 0.5 ML SDV inactive IM ONE (06:51)
[2016-10-16] MEDS: Aspirin 81 MG Tab.Chew PO SCH (08:44)
--- NOTE | 2016-10-16 10:16 | PCM.PN ---
- General Info Date of Service: 10/16/16 Admission Dx/Problem (Free Text): Orthostatic Hypotension and Dizziness Subjective Update: Follow Up Functional Status: Reports: pain controlled, tolerating diet, ambulating, urinating. Denies: new symptoms - Review of Systems General: Denies: Fever, Chills HEENT: Reports: no symptoms Pulmonary: Denies: shortness of breath Cardiovascular: Reports: Lightheadedness. Denies: Chest Pain Gastrointestinal: Reports: Nausea. Denies: Abdominal pain, Vomiting Genitourinary: Reports: no symptoms Musculoskeletal: Reports: no symptoms Skin: Denies: cyanosis, rash Neurological: Reports: Dizziness Psychiatric: Denies: confusion, depression, anxiety, hallucinations, suicidal ideation Systems Review Comment:: No overnight issues. She seems to be better. She is nauseous but was able to tolerate her breakfast. She feels about to pass out and lightheaded. PTand OT have not been in to see her. Per nuclear monitoring technician, her heart rate jumps in the teens to 120s when she gets up. - Patient Data Vitals - most recent: Last Vital Signs Temp 37.0 C 10/16/16 08:02 Pulse 75 10/16/16 08:02 Resp 16 10/16/16 08:02 BP 129/94 H 10/16/16 08:02 Pulse Ox 99 10/16/16 08:02 Weight - most recent: 78.925 kg I&O - last 24 hours: Intake & Output 10/15/16 10/16/16 10/16/16 22:59 06:59 14:59 Intake Total 584 Balance 584 Lab Results last 24 hrs: Laboratory Results - last 24 hr 10/16/16 10/16/16 10/16/16 Range/Units 06:47 06:47 06:47 WBC 5.62 (3.98-10.04) K/mm3 RBC 3.89 L (3.98-5.22) M/mm3 Hgb 11.2 (11.2-15.7) gm/L Hct 35.3 (34.1-44.9) % MCV 90.7 (79.4-94.8) fl MCH 28.8 (25.6-32.2) pg MCHC 31.7 L (32.2-35.5) g/dl RDW Std Deviation 45.0 (36.4-46.3) fL Plt Count 201 (182-369) K/mm3 MPV 10.4 (9.4-12.3) fl Neut % (Auto) 53.0 (34.0-71.1) % Lymph % (Auto) 32.2 (19.3-51.7) % [place] % (Auto) 10.9 (4.7-12.5) % Eos % (Auto) 3.7 (0.7-5.8) Baso % (Auto) 0.0 L (0.1-1.2) % Neut # (Auto) 2.98 (1.56-6.13) K/mm3 Lymph # (Auto) 1.81 (1.18-3.74) K/mm3 [place] # (Auto) 0.61 H (0.24-0.36) K/mm3 Eos # (Auto) 0.21 (0.04-0.36) K/mm3 Baso # (Auto) 0.00 L (0.01-0.08) K/mm3 Sodium 144 (136-145) mEq/L Potassium 3.1 L (3.5-5.1) mEq/L Chloride 108 H (98-107) mEq/L Carbon Dioxide 30 (21-32) mEq/L Anion Gap 9.1 (5-15) BUN 18 (7-18) mg/dL Creatinine 1.0 (0.55-1.02) mg/dL Est Cr Clr Drug Dosing 48.45 mL/min Estimated GFR (MDRD) 54 (>60) mL/min BUN/Creatinine Ratio 18.0 (14-18) Glucose 116 H (83-115) mg/dL Calcium 9.0 (8.5-10.1) mg/dL Magnesium 1.6 L (1.8-2.4) mg/dl Vitamin B12 236 (193-986) pg/ml Folate 16.0 (8.6-58.9) ng/mL Free T4 1.17 (0.76-1.46) ng/dL TSH 3rd Generation 2.155 (0.358-3.74) uIU/mL Med Orders - Current: Current Medications Acetaminophen (Tylenol) 650 mg PO Q4H PRN PRN Reason: Pain (Mild 1-3)/fever Hydrocodone Bitart/Acetaminophen ([place] 325-5 Mg) 1 tab PO Q4H PRN PRN Reason: Pain (moderate 4-6) Albuterol/Ipratropium (Duoneb 3.0-0.5 Mg/3 Ml) 3 ml NEB Q4H PRN PRN Reason: Shortness Of Breath/wheezing Aspirin (Aspirin) 81 mg PO DAILY [facility] Last Admin: 10/16/16 08:44 Dose: 81 mg Benztropine Mesylate (Cogentin) 1 mg PO BEDTIME [facility] Last Admin: 10/16/16 00:05 Dose: 1 mg Bisacodyl (Dulcolax) 5 mg PO DAILY PRN PRN Reason: Constipation Budesonide (Pulmicort) 0.5 mg NEB BIDRT [facility] Last Admin: 10/16/16 06:06 Dose: 0.5 mg Docusate Sodium (Colace) 200 mg PO DAILY PRN PRN Reason: Constipation Hydromorphone HCl (Dilaudid) 0.25 mg IVPUSH Q2H PRN PRN Reason: Pain (severe 7-10) Promethazine HCl 12.5 mg/ (Sodium Chloride) 50.5 mls @ 100 mls/hr IV Q6H PRN PRN Reason: Nausea/Vomiting Sodium Chloride (Normal Saline) 1,000 mls @ 100 mls/hr IV ASDIRECTED [facility] Last Admin: 10/16/16 00:46 Dose: 100 mls/hr Ipratropium [place] (Atrovent Hfa) 0 gm INH Q6H PRN PRN Reason: Shortness of Breath Lorazepam (Ativan) 0.5 mg IV Q6H PRN PRN Reason: Anxiety Meclizine HCl (Antivert) 25 mg PO Q6H PRN PRN Reason: Dizziness (Arformoterol 15 Mcg ()*Pt Own Med*) 15 mcg NEB BIDRT [facility] Last Admin: 10/16/16 06:06 Dose: 15 mcg Ondansetron HCl (Zofran) 4 mg IV Q6H PRN PRN Reason: Nausea/Vomiting Trifluoperazine 10 (Mg Tab* Pt Own Med*) 2 each PO BEDTIME [facility] Last Admin: 10/16/16 00:05 Dose: 2 each Polyethylene Glycol (Miralax) 17 gm PO DAILY PRN PRN Reason: Constipation Senna/Docusate Sodium (Senna Plus) 1 tab PO BID PRN PRN Reason: Constipation Sodium Chloride (Saline Flush) 10 ml FLUSH ASDIRECTED PRN PRN Reason: Keep Vein Open Last Admin: 10/15/16 13:36 Dose: 10 ml Temazepam (Restoril) 7.5 mg PO BEDTIME PRN PRN Reason: Sleep Last Admin: 10/16/16 00:04 Dose: 7.5 mg Discontinued Medications Budesonide (Pulmicort) 0.5 mg NEB BID [facility] Last Admin: 10/15/16 20:39 Dose: 0.5 mg Diphtheria/Tetanus/Acell Pertussis (Boostrix) 0.5 ml IM .ONCE ONE Stop: 10/15/16 23:49 Diphtheria/Tetanus/Acell Pertussis (Boostrix) 0.5 ml IM .ONCE ONE Stop: 10/16/16 06:52 Hydromorphone HCl (Dilaudid) 0.25 mg IVPUSH Q2H PRN PRN Reason: Pain (severe 7-10) Sodium Chloride (Normal Saline) 500 mls @ 250 mls/hr IV .BOLUS ONE Stop: 10/15/16 15:25 Last Admin: 10/15/16 13:35 Dose: 250 mls/hr Scopolamine (Transderm-Scop) 1.5 mg TOP ONETIME ONE Stop: 10/15/16 23:30 Last Admin: 10/16/16 00:03 Dose: 1.5 mg Trifluoperazine HCl (Trifluoperazine) 20 mg PO BEDTIME [facility] Last Admin: 10/16/16 05:18 Dose: Not Given - Exam General: alert, oriented, cooperative, no acute distress HEENT: Pupils equal, Pupils reactive, EOMI, Mucous membr. moist/pink Neck: supple, trachea midline, no JVD Lungs: Clear to auscultation, Normal respiratory effort Cardiovascular: Regular Rate, Regular Rhythm Abdomen: bowel sounds present, soft, no tenderness, no distension (Female) Exam: Deferred Back Exam: Normal Inspection, Decreased Range of Motion Extremities: no edema, no clubbing, no calf tenderness Peripheral Pulses: 2+: Dorsalis Pedis (L), Dorsalis Pedis (R) Skin: warm, dry, intact, ecchymosis Neurological: no new focal deficit Psy/Mental Status: alert, normal affect, normal mood - Problem List Review Problem List Initiated/Reviewed/Updated: Yes - My Orders Last 24 Hours: My Active Orders 10/15/16 23:00 Budesonide [Pulmicort] 0.5 mg NEB BIDRT Patient's Own Medication [Ptom] 2 each PO BEDTIME 10/16/16 06:47 VITAMIN B-1 THIAMINE, PLASMA [REF] Routine VITAMIN D 25-HYROXY (D2, D3) [REF] Routine 10/16/16 06:51 Vaccines to be Administered [RC] PER UNIT ROUTINE - Plan Plan:: Assessment/Plan: Acute: Dizziness/Unsteadiness - Has Hx/o Abnormal Rhythm (racing and pounding heart beats in the past) - EKG Sinus Rhythm with multiple PVCs - Head CT scan reads no acute intra-cranial abnormality - MRI to r/o vestibular and cerebellar abnormality-pending - She is on multiple meds to cause dizziness - 2D echo pending - EKG this am shows SR with PVCs - PRN medications for symptomatic control - Telemetry - Maybe related to cardiac rhythm awaiting MRI and 2D echo Resolved: S/p Orthostatic Hypotension - Had near syncope - Pos with BP as low at 88/65 mmHg - Her pressures now have improved - On BP meds: Cardizem 120 mg po daily and Valsartan 80 mg po daily Chronic: Impaired Vision HTN COPD/Asthma on 3L NC baseline GERD Cholelithiasis CKD Stage 3 Query PD/Parkinson's Syndrome (Trifluoperazine and Cogentin) Hx/o Breast Cancer Plan: She is still symptomatic but her vitals are now stable Routine AM Labs Resume Home Meds except BP meds Continue PT/OT SW/CM for d/c planning Additional orders a above Code status: 1
--- NOTE | 2016-10-16 12:39 | MR ---
MRI brain Technique: T1 sagittal; T2, diffusion, T1 and T2 flair axial; T1 FLAIR coronal images were obtained through the brain. Comparison: Previous head CT study of 10/15/16. Findings: Ventricles along with basal cisterns and sulci over the convexities are mildly prominent. Normal signal void is seen within the major cerebral arteries within the skull base. Increased signal seen within portions of the periventricular and subcortical white matter which is compatible with small vessel ischemic demyelination change. 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 No acute diffusion abnormalities are seen. No abnormal signal is seen within the brainstem. No abnormality is seen within the cerebellopontine angle cisterns. Impression: 1. Senescent change as described above. No acute diffusion abnormalities/or other abnormality is appreciated. Diagnostic code #2
[2016-10-16] MEDS: Losartan 25 MG Tab PO SCH (12:40)
[2016-10-16] MEDS: Diltiazem 120 MG Cap.CD PO SCH (12:40)
[2016-10-16] MEDS ORDERED: Magnesium Sulfate/Water 2 GM in Premix Bag 1 BAG IV ONE (13:00)
[2016-10-16] MEDS: Potassium Chloride 20 MEQ Tab.ER PO SCH ×2 (13:41→16:21)
[2016-10-17] MEDS: BUDESONIDE 0.5 MG/2 ML NEB SCH (06:15)
--- NOTE | 2016-10-17 07:23 | PCM.PN ---
- General Info Date of Service: 10/17/16 Admission Dx/Problem (Free Text): Orthostatic Hypotension and Dizziness Subjective Update: Follow Up Functional Status: Reports: pain controlled, tolerating diet, urinating. Denies : new symptoms - Patient Data Vitals - most recent: Last Vital Signs Temp 36.4 C 10/16/16 12:43 Pulse 81 10/16/16 12:43 Resp 20 10/16/16 12:43 BP 131/68 10/16/16 12:43 Pulse Ox 100 10/17/16 06:17 Weight - most recent: 78.97 kg I&O - last 24 hours: Intake & Output 10/16/16 10/17/16 10/17/16 22:59 06:59 14:59 Intake Total 1728 2007 Output Total 200 Balance 1528 2007 Lab Results last 24 hrs: Laboratory Results - last 24 hr 10/17/16 10/17/16 Range/Units 05:25 05:25 WBC 5.33 (3.98-10.04) K/mm3 RBC 3.70 L (3.98-5.22) M/mm3 Hgb 10.9 L (11.2-15.7) gm/L Hct 33.8 L (34.1-44.9) % MCV 91.4 (79.4-94.8) fl MCH 29.5 (25.6-32.2) pg MCHC 32.2 (32.2-35.5) g/dl RDW Std Deviation 45.1 (36.4-46.3) fL Plt Count 184 (182-369) K/mm3 MPV 10.6 (9.4-12.3) fl Neut % (Auto) 45.4 (34.0-71.1) % Lymph % (Auto) 37.1 (19.3-51.7) % [place] % (Auto) 12.2 (4.7-12.5) % Eos % (Auto) 4.9 (0.7-5.8) Baso % (Auto) 0.2 (0.1-1.2) % Neut # (Auto) 2.42 (1.56-6.13) K/mm3 Lymph # (Auto) 1.98 (1.18-3.74) K/mm3 [place] # (Auto) 0.65 H (0.24-0.36) K/mm3 Eos # (Auto) 0.26 (0.04-0.36) K/mm3 Baso # (Auto) 0.01 (0.01-0.08) K/mm3 Sodium 143 (136-145) mEq/L Potassium 4.0 (3.5-5.1) mEq/L Chloride 110 H (98-107) mEq/L Carbon Dioxide 28 (21-32) mEq/L Anion Gap 9.0 (5-15) BUN 12 (7-18) mg/dL Creatinine 0.7 (0.55-1.02) mg/dL Est Cr Clr Drug Dosing 69.22 mL/min Estimated GFR (MDRD) > 60 (>60) mL/min BUN/Creatinine Ratio 17.1 (14-18) Glucose 97 (83-115) mg/dL Calcium 8.5 (8.5-10.1) mg/dL Magnesium 2.0 (1.8-2.4) mg/dl Med Orders - Current: Current Medications Acetaminophen (Tylenol) 650 mg PO Q4H PRN PRN Reason: Pain (Mild 1-3)/fever Hydrocodone Bitart/Acetaminophen ([place] 325-5 Mg) 1 tab PO Q4H PRN PRN Reason: Pain (moderate 4-6) Albuterol/Ipratropium (Duoneb 3.0-0.5 Mg/3 Ml) 3 ml NEB Q4H PRN PRN Reason: Shortness Of Breath/wheezing Aspirin (Aspirin) 81 mg PO DAILY [facility] Last Admin: 10/16/16 08:44 Dose: 81 mg Benztropine Mesylate (Cogentin) 1 mg PO BEDTIME [facility] Last Admin: 10/16/16 20:51 Dose: 1 mg Bisacodyl (Dulcolax) 5 mg PO DAILY PRN PRN Reason: Constipation Budesonide (Pulmicort) 0.5 mg NEB BIDRT [facility] Last Admin: 10/17/16 06:15 Dose: 0.5 mg Diltiazem HCl (Cardizem Cd) 120 mg PO DAILY [facility] Last Admin: 10/16/16 12:40 Dose: 120 mg Docusate Sodium (Colace) 200 mg PO DAILY PRN PRN Reason: Constipation Hydromorphone HCl (Dilaudid) 0.25 mg IVPUSH Q2H PRN PRN Reason: Pain (severe 7-10) Promethazine HCl 12.5 mg/ (Sodium Chloride) 50.5 mls @ 100 mls/hr IV Q6H PRN PRN Reason: Nausea/Vomiting Sodium Chloride (Normal Saline) 1,000 mls @ 100 mls/hr IV ASDIRECTED [facility] Last Admin: 10/16/16 12:40 Dose: 100 mls/hr Ipratropium [place] (Atrovent Hfa) 0 gm INH Q6H PRN PRN Reason: Shortness of Breath Lorazepam (Ativan) 0.5 mg IV Q6H PRN PRN Reason: Anxiety Losartan Potassium (Cozaar) 50 mg PO DAILY [facility] Last Admin: 10/16/16 12:40 Dose: 50 mg Magnesium Sulfate (Pharmacy To Dose - Magnesium Replacement) 1 dose .XX ASDIRECTED [facility] Meclizine HCl (Antivert) 25 mg PO Q6H PRN PRN Reason: Dizziness (Arformoterol 15 Mcg ()*Pt Own Med*) 15 mcg NEB BIDRT [facility] Last Admin: 10/17/16 06:14 Dose: 15 mcg Ondansetron HCl (Zofran) 4 mg IV Q6H PRN PRN Reason: Nausea/Vomiting Trifluoperazine 10 (Mg Tab* Pt Own Med*) 2 each PO BEDTIME [facility] Last Admin: 10/16/16 20:51 Dose: 2 each Polyethylene Glycol (Miralax) 17 gm PO DAILY PRN PRN Reason: Constipation Potassium Chloride (Pharmacy To Dose - Potassium Replacement) 1 dose .XX ASDIRECTED [facility] Senna/Docusate Sodium (Senna Plus) 1 tab PO BID PRN PRN Reason: Constipation Sodium Chloride (Saline Flush) 10 ml FLUSH ASDIRECTED PRN PRN Reason: Keep Vein Open Last Admin: 10/15/16 13:36 Dose: 10 ml Temazepam (Restoril) 7.5 mg PO BEDTIME PRN PRN Reason: Sleep Last Admin: 10/16/16 00:04 Dose: 7.5 mg Discontinued Medications Budesonide (Pulmicort) 0.5 mg NEB BID [facility] Last Admin: 10/15/16 20:39 Dose: 0.5 mg Diphtheria/Tetanus/Acell Pertussis (Boostrix) 0.5 ml IM .ONCE ONE Stop: 10/15/16 23:49 Diphtheria/Tetanus/Acell Pertussis (Boostrix) 0.5 ml IM .ONCE ONE Stop: 10/16/16 06:52 Hydromorphone HCl (Dilaudid) 0.25 mg IVPUSH Q2H PRN PRN Reason: Pain (severe 7-10) Sodium Chloride (Normal Saline) 500 mls @ 250 mls/hr IV .BOLUS ONE Stop: 10/15/16 15:25 Last Admin: 10/15/16 13:35 Dose: 250 mls/hr Magnesium Sulfate 2 gm/ Premix 50 mls @ 25 mls/hr IV ONETIME ONE Stop: 10/16/16 14:59 Last Admin: 10/16/16 13:41 Dose: 25 mls/hr Potassium Chloride (Klor-Con M20) 40 meq PO Q4H [facility] Stop: 10/16/16 16:46 Last Admin: 10/16/16 16:21 Dose: 40 meq Scopolamine (Transderm-Scop) 1.5 mg TOP ONETIME ONE Stop: 10/15/16 23:30 Last Admin: 10/16/16 00:03 Dose: 1.5 mg Trifluoperazine HCl (Trifluoperazine) 20 mg PO BEDTIME [facility] Last Admin: 10/16/16 05:18 Dose: Not Given - Plan Plan:: Assessment/Plan: Acute: Dizziness/Unsteadiness - Has Hx/o Abnormal Rhythm (racing and pounding heart beats in the past) - EKG Sinus Rhythm with multiple PVCs - Head CT scan reads no acute intra-cranial abnormality - MRI to r/o vestibular and cerebellar abnormality-pending - She is on multiple meds to cause dizziness - 2D echo pending - EKG this am shows SR with PVCs - PRN medications for symptomatic control - Telemetry - Maybe related to cardiac rhythm awaiting MRI and 2D echo Resolved: S/p Orthostatic Hypotension - Had near syncope - Pos with BP as low at 88/65 mmHg - Her pressures now have improved - On BP meds: Cardizem 120 mg po daily and Valsartan 80 mg po daily Chronic: Impaired Vision HTN COPD/Asthma on 3L NC baseline GERD Cholelithiasis CKD Stage 3 Query PD/Parkinson's Syndrome (Trifluoperazine and Cogentin) Hx/o Breast Cancer Plan: She is still symptomatic but her vitals are now stable Routine AM Labs Resume Home Meds except BP meds Continue PT/OT SW/CM for d/c planning Additional orders a above Code status: 1
[2016-10-17] MEDS: Losartan 25 MG Tab PO SCH (08:58)
[2016-10-17] MEDS: Diltiazem 120 MG Cap.CD PO SCH (08:59)
[2016-10-17] MEDS: Aspirin 81 MG Tab.Chew PO SCH (08:59)
--- NOTE | 2016-10-17 09:32 | PCM.DCSUM1 ---
Discharge Summary - Hospital Course Brief History: This is a 76-year-old elderly white female with past medical history of COPD, hypertension, GERD, cholelithiasis, and questionable Parkinsonian syndrome who comes in with complaints dizziness with standing and sitting. She was admitted for medical management of Disequilibrium Syndrome and Orthostatic Hypotension. - Discharge Data Discharge Date: 10/17/16 Discharge Disposition: Home, Self-Care 01 Condition: Good - Discharge Diagnosis/Problem(s) (1) Dysrhythmia, cardiac SNOMED Code(s): 302926322 ICD Code: I49.9 - CARDIAC ARRHYTHMIA, UNSPECIFIED Status: Acute Current Visit: Yes Qualifiers: Arrhythmia type: unspecified cardiac arrhythmia Qualified Code(s): I49.9 - Cardiac arrhythmia, unspecified (2) Dizziness SNOMED Code(s): 525899662, 703476820 ICD Code: R42 - DIZZINESS AND GIDDINESS Status: Acute Current Visit: Yes (3) Hypotension due to drugs Status: Resolved Current Visit: Yes - Patient Summary/Data Operative Procedure(s) Performed: None Complications: None - Patient Instructions Diet: Heart Healthy Diet, Usual Diet as Tolerated Activity: As Tolerated Driving: Do Not Drive Showering/Bathing: May Shower Notify Provider of: Fever, Increased Pain, Nausea and/or Vomiting - Discharge Plan Home Medications: Home Meds Arformoterol [Brovana] 15 mcg NEB BID 01/13/15 [History] Aspirin [[place] Aspirin] 81 mg PO DAILY 01/13/15 [History] Benztropine [Cogentin] 1 mg PO DAILY 01/13/15 [History] Budesonide [Pulmicort] 0.5 mg NEB BID 01/13/15 [History] Diltiazem HCl [[place] Xt] 120 mg PO DAILY 01/13/15 [History] Docusate Sodium [Stool Softener] 200 mg PO ASDIRECTED PRN 01/13/15 [History] Ipratropium [Atrovent HFA Inh] 1 puff INH Q6H PRN 01/13/15 [History] Pantoprazole [Protonix] 40 mg PO DAILY 01/13/15 [History] Trifluoperazine 20 mg PO DAILY 01/13/15 [History] Valsartan 80 mg PO DAILY 01/13/15 [History] Patient Handouts: Orthostatic Hypotension, Hypoxemia, Chronic Obstructive Pulmonary Disease, [id number], Syncope, [id number] Referrals: Tito Durand MD [Ordering Only Provider] - 10/24/16 1:00 pm (This appt. is in [place], if this date and time does not work for you please call and reschedule. This appt. is central time.) Mahnaz Lama MD [Physician] - 11/09/16 9:00 am (Appointment is in Central Standard Time. Please arrive at 0900 for testing and 1000 for appointment to see physician. This is the passenger service supervisor appt.) Cecelia Kaur [Physician] - 10/22/16 9:00 am (Hospital follow-up appointment and to establish primary care with physician. Please arrive at [facility] at 0845 for check-in. [address] [place] [address].) - Discharge Summary/Plan Comment DC Time >30 min.: Yes (45 mins) Discharge Summary/Plan Comment: Discharge to Home with [facility] Face to face Documentation: - General Info Date of Service: 10/17/16 Admission Dx/Problem (Free Text: Orthostatic Hypotension and Dizziness Subjective Update: Follow Up Functional Status: Reports: pain controlled, tolerating diet, ambulating, urinating - Review of Systems General: Denies: Fever, Weakness, Chills HEENT: Reports: no symptoms Pulmonary: Denies: shortness of breath Cardiovascular: Denies: Chest Pain, Palpitations, Dyspnea on Exertion, Lightheadedness Gastrointestinal: Denies: Abdominal pain, Nausea, Vomiting Genitourinary: Reports: no symptoms Musculoskeletal: Reports: joint pain (right hip) Skin: Reports: no symptoms Neurological: Reports: Gait Disturbance. Denies: Confusion, Seizure, Weakness Psychiatric: Denies: depression, anxiety, hallucinations Systems Review Comment: No overnight or acute issues. She feels better but still has some lingering dizziness/lightheadedness. Her pressures are stable. She complaints of right groin pain. She has no bowel pain or issues with her bladder. No abnormal telemetry recorded overnight. - Patient Data Vitals - Most Recent: Last Vital Signs Temp 36.4 C 10/17/16 07:55 Pulse 84 10/17/16 08:59 Resp 12 10/17/16 07:55 BP 130/58 L 10/17/16 08:59 Pulse Ox 100 10/17/16 07:55 Weight - Most Recent: 78.97 kg I&O - Last 24 hours: Intake & Output 10/16/16 10/17/16 10/17/16 22:59 06:59 14:59 Intake Total 1728 2007 Output Total 200 Balance 1528 2007 Lab Results - Last 24 hrs: Laboratory Results - last 24 hr 10/17/16 10/17/16 Range/Units 05:25 05:25 WBC 5.33 (3.98-10.04) K/mm3 RBC 3.70 L (3.98-5.22) M/mm3 Hgb 10.9 L (11.2-15.7) gm/L Hct 33.8 L (34.1-44.9) % MCV 91.4 (79.4-94.8) fl MCH 29.5 (25.6-32.2) pg MCHC 32.2 (32.2-35.5) g/dl RDW Std Deviation 45.1 (36.4-46.3) fL Plt Count 184 (182-369) K/mm3 MPV 10.6 (9.4-12.3) fl Neut % (Auto) 45.4 (34.0-71.1) % Lymph % (Auto) 37.1 (19.3-51.7) % [place] % (Auto) 12.2 (4.7-12.5) % Eos % (Auto) 4.9 (0.7-5.8) Baso % (Auto) 0.2 (0.1-1.2) % Neut # (Auto) 2.42 (1.56-6.13) K/mm3 Lymph # (Auto) 1.98 (1.18-3.74) K/mm3 [place] # (Auto) 0.65 H (0.24-0.36) K/mm3 Eos # (Auto) 0.26 (0.04-0.36) K/mm3 Baso # (Auto) 0.01 (0.01-0.08) K/mm3 Sodium 143 (136-145) mEq/L Potassium 4.0 (3.5-5.1) mEq/L Chloride 110 H (98-107) mEq/L Carbon Dioxide 28 (21-32) mEq/L Anion Gap 9.0 (5-15) BUN 12 (7-18) mg/dL Creatinine 0.7 (0.55-1.02) mg/dL Est Cr Clr Drug Dosing 69.22 mL/min Estimated GFR (MDRD) > 60 (>60) mL/min BUN/Creatinine Ratio 17.1 (14-18) Glucose 97 (83-115) mg/dL Calcium 8.5 (8.5-10.1) mg/dL Magnesium 2.0 (1.8-2.4) mg/dl Med Orders - Current: Current Medications Acetaminophen (Tylenol) 650 mg PO Q4H PRN PRN Reason: Pain (Mild 1-3)/fever Hydrocodone Bitart/Acetaminophen ([place] 325-5 Mg) 1 tab PO Q4H PRN PRN Reason: Pain (moderate 4-6) Albuterol/Ipratropium (Duoneb 3.0-0.5 Mg/3 Ml) 3 ml NEB Q4H PRN PRN Reason: Shortness Of Breath/wheezing Aspirin (Aspirin) 81 mg PO DAILY [facility] Last Admin: 10/17/16 08:59 Dose: 81 mg Benztropine Mesylate (Cogentin) 1 mg PO BEDTIME [facility] Last Admin: 10/16/16 20:51 Dose: 1 mg Bisacodyl (Dulcolax) 5 mg PO DAILY PRN PRN Reason: Constipation Budesonide (Pulmicort) 0.5 mg NEB BIDRT [facility] Last Admin: 10/17/16 06:15 Dose: 0.5 mg Diltiazem HCl (Cardizem Cd) 120 mg PO DAILY [facility] Last Admin: 10/17/16 08:59 Dose: 120 mg Docusate Sodium (Colace) 200 mg PO DAILY PRN PRN Reason: Constipation Hydromorphone HCl (Dilaudid) 0.25 mg IVPUSH Q2H PRN PRN Reason: Pain (severe 7-10) Promethazine HCl 12.5 mg/ (Sodium Chloride) 50.5 mls @ 100 mls/hr IV Q6H PRN PRN Reason: Nausea/Vomiting Sodium Chloride (Normal Saline) 1,000 mls @ 100 mls/hr IV ASDIRECTED [facility] Last Admin: 10/16/16 12:40 Dose: 100 mls/hr Ipratropium [place] (Atrovent Hfa) 0 gm INH Q6H PRN PRN Reason: Shortness of Breath Lorazepam (Ativan) 0.5 mg IV Q6H PRN PRN Reason: Anxiety Losartan Potassium (Cozaar) 50 mg PO DAILY [facility] Last Admin: 10/17/16 08:58 Dose: 50 mg Magnesium Sulfate (Pharmacy To Dose - Magnesium Replacement) 1 dose .XX ASDIRECTED [facility] Meclizine HCl (Antivert) 25 mg PO Q6H PRN PRN Reason: Dizziness (Arformoterol 15 Mcg ()*Pt Own Med*) 15 mcg NEB BIDRT [facility] Last Admin: 10/17/16 06:14 Dose: 15 mcg Ondansetron HCl (Zofran) 4 mg IV Q6H PRN PRN Reason: Nausea/Vomiting Trifluoperazine 10 (Mg Tab* Pt Own Med*) 2 each PO BEDTIME [facility] Last Admin: 10/16/16 20:51 Dose: 2 each Polyethylene Glycol (Miralax) 17 gm PO DAILY PRN PRN Reason: Constipation Potassium Chloride (Pharmacy To Dose - Potassium Replacement) 1 dose .XX ASDIRECTED [facility] Senna/Docusate Sodium (Senna Plus) 1 tab PO BID PRN PRN Reason: Constipation Sodium Chloride (Saline Flush) 10 ml FLUSH ASDIRECTED PRN PRN Reason: Keep Vein Open Last Admin: 10/15/16 13:36 Dose: 10 ml Temazepam (Restoril) 7.5 mg PO BEDTIME PRN PRN Reason: Sleep Last Admin: 10/16/16 00:04 Dose: 7.5 mg Discontinued Medications Budesonide (Pulmicort) 0.5 mg NEB BID [facility] Last Admin: 10/15/16 20:39 Dose: 0.5 mg Diphtheria/Tetanus/Acell Pertussis (Boostrix) 0.5 ml IM .ONCE ONE Stop: 10/15/16 23:49 Diphtheria/Tetanus/Acell Pertussis (Boostrix) 0.5 ml IM .ONCE ONE Stop: 10/16/16 06:52 Hydromorphone HCl (Dilaudid) 0.25 mg IVPUSH Q2H PRN PRN Reason: Pain (severe 7-10) Sodium Chloride (Normal Saline) 500 mls @ 250 mls/hr IV .BOLUS ONE Stop: 10/15/16 15:25 Last Admin: 10/15/16 13:35 Dose: 250 mls/hr Magnesium Sulfate 2 gm/ Premix 50 mls @ 25 mls/hr IV ONETIME ONE Stop: 10/16/16 14:59 Last Admin: 10/16/16 13:41 Dose: 25 mls/hr Potassium Chloride (Klor-Con M20) 40 meq PO Q4H [facility] Stop: 10/16/16 16:46 Last Admin: 10/16/16 16:21 Dose: 40 meq Scopolamine (Transderm-Scop) 1.5 mg TOP ONETIME ONE Stop: 10/15/16 23:30 Last Admin: 10/16/16 00:03 Dose: 1.5 mg Trifluoperazine HCl (Trifluoperazine) 20 mg PO BEDTIME [facility] Last Admin: 10/16/16 05:18 Dose: Not Given - Exam General: Reports: alert, oriented, cooperative, no acute distress HEENT: Reports: Pupils equal, Pupils reactive, EOMI, Mucous membr. moist/pink Neck: Reports: supple, trachea midline, no JVD Lungs: Reports: Clear to auscultation, Normal respiratory effort Cardiovascular: Reports: Regular Rate, Regular Rhythm Abdomen: Reports: bowel sounds present, soft, no tenderness, no distension (Female) Exam: Deferred Rectal (Female) Exam: Deferred Back Exam: Reports: Normal Inspection, Decreased Range of Motion Extremities: Reports: no edema, normal pulses, no tenderness/swelling, no clubbing, no cyanosis, no calf tenderness Skin: Reports: warm, dry, intact Neurological: Reports: no new focal deficit Psy/Mental Status: Reports: alert, normal affect, normal mood *Q Meaningful Use (DIS) - VTE *Q VTE Criteria *Q: - Stroke *Q Stroke Criteria *Q: - AMI *Q AMI Criteria *Q:
--- NOTE | 2016-10-17 10:53 | CR ---
Right hip: AP and frog-leg lateral views of the right hip were obtained. Comparison: No previous right hip exam. Right hip prosthesis is seen. Components are aligned. Underlying bony structures are intact. Impression: 1. Right hip prosthesis. No abnormality is appreciated. Diagnostic code #2
[2016-10-17 15:05] VITALS: BP 128/64
== END 2016-10-17 16:30 | disposition home or self-care (01) | DRG 312 ==
LOC: JD.ED 12:18 → UNDOADMOB 18:36 → JD.MS 18:36 → OBSVTOIN 10-16 12:19 → JD.MS 10-16 15:51
PROVIDERS: ADMIT Internal Medicine; ATTEND Internal Medicine
DX: I95.2 Hypotension due to drugs (principal); I49.9 Cardiac arrhythmia, unspecified; R55 Syncope and collapse; R42 Dizziness and giddiness; J44.9 Chronic obstructive pulmonary disease, unspecified; J45.909 Unspecified asthma, uncomplicated; K21.9 Gastro-esophageal reflux disease without esophagitis; Z79.82 Long term (current) use of aspirin; H54.7 Unspecified visual loss; Z87.891 Personal history of nicotine dependence; I49.3 Ventricular premature depolarization; R06.02 Shortness of breath; Z99.81 Dependence on supplemental oxygen; M25.551 Pain in right hip; I12.9 Hypertensive chronic kidney disease with stage 1 through stage 4 chronic kidney disease, or unspecified chronic kidney disease; N18.3 Chronic kidney disease, stage 3 (moderate); Z85.3 Personal history of malignant neoplasm of breast; Z88.2 Allergy status to sulfonamides; Z88.1 Allergy status to other antibiotic agents; Z79.899 Other long term (current) drug therapy
CPT/HCPCS: 36415 ×2; 70450; 70551; 71020; 80048; 80053; 81001; 82270; 82306; 82607; 82746; 83735; 84425; 84439; 84443 ×2; 84484; 85025 ×2; 93005 ×2; 93306; 94640; 94664; 94760; 96360; 96361 ×2; 99285; A9270 ×5; G0378; J7040 ×2; J7050; P9612; 73502-26-RT; 73502-RT; 94761; 97110-GP; 97116-GP; 97162-GP; 97167-GO; 97530-GO; 97535-GO; 99284; J3475

== ENCOUNTER 2016-12-08 17:55 | Emergency (ER) | payer MEDICARE, MEDICAID ==
[2016-12-08 18:09] VITALS: BP 100/80
--- NOTE | 2016-12-08 18:19 | EDM.PDOC ---
ED HPI GENERAL MEDICAL PROBLEM - General Chief Complaint: ENT Problem Stated Complaint: SORE IN NOSE Time Seen by Provider: 12/08/16 18:10 Source of Information: Reports: Patient History Limitations: Reports: No Limitations - History of Present Illness INITIAL COMMENTS - FREE TEXT/NARRATIVE: 76-year-old female presents to the ED with painful sore inside her left naris. Patient states a been gradually getting worse over the last 2 weeks. Note the patient is chronically oxygen dependent and has nasal prongs in her nose all the time. He has a good idea that the nasal prongs are causing the problem. There's been no bleeding from the naris. No excessive mucus or rhinitis she does not use any intranasal sprays. She fell recently or just before coming into the hospital and injured her left knee as well. She can still weight-bear however. Onset: Gradual (Over the last 2 weeks.) Duration: Day(s):, Chronic, Getting Worse Location: Reports: Other (Inner aspect left nose) Quality: Reports: Burning, Stabbing Severity: Moderate Improves with: Reports: None Worsens with: Reports: Other Context: Reports: Other (Use of chronic nasal prongs for COPD and oxygen treatment). Denies: Activity, Exercise (Touching the area), Lifting, Sick Contact, Trauma Associated Symptoms: Reports: No Other Symptoms Treatments ECONOMICS CONSULTANT: Reports: Other (see below) (None.) Nose Pain Score (Numeric/FACES): 8 - Related Data Allergies Allergy/AdvReac Type Severity Reaction Status Date / Time azithromycin Allergy Cannot Verified 12/08/16 18:03 Remember Sulfa (Sulfonamide Allergy Cannot Verified 12/08/16 18:03 Antibiotics) Remember Home Meds: Home Meds Arformoterol [Brovana] 15 mcg NEB BID 01/13/15 [History] Aspirin [Candler Aspirin] 81 mg PO DAILY 01/13/15 [History] Benztropine [Cogentin] 1 mg PO DAILY 01/13/15 [History] Budesonide [Pulmicort] 0.5 mg NEB BID 01/13/15 [History] Docusate Sodium [Stool Softener] 200 mg PO ASDIRECTED PRN 01/13/15 [History] Ipratropium [Atrovent HFA] 1 puff INH Q6H PRN 01/13/15 [History] Pantoprazole [ProTONIX] 40 mg PO DAILY 01/13/15 [History] Trifluoperazine 20 mg PO DAILY 01/13/15 [History] Valsartan 80 mg PO DAILY 01/13/15 [History] Diltiazem HCl [Cartia Xt] 120 mg PO DAILY #0 10/17/16 [Rx] Meclizine [Antivert] 25 mg PO Q6H PRN #20 tab.chew 10/17/16 [Rx] Mupirocin Oint [Bactroban Oint] 22 gm TOP TID #1 tube 12/08/16 [Rx] Past Medical History HEENT History: Reports: Impaired Vision Cardiovascular History: Reports: Hypertension Respiratory History: Reports: Asthma, COPD Gastrointestinal History: Reports: Cholelithiasis, GERD, Hemorrhoids Genitourinary History: Reports: None RN TELEPHONIC History: Reports: Musculoskeletal History: Reports: Back Pain, Chronic, Fracture Psychiatric History: Reports: Anxiety, Schizophrenia, Other (See Below) Other Psychiatric History: pt reports she would hear voices and she saw therapy for that. the voices went away after she turned to the [employer] 10 years ago. Oncologic (Cancer) History: Reports: Breast - Infectious Disease History Infectious Disease History: Reports: Chicken Pox, Influenza, Measles, Mumps - Past Surgical History GI Surgical History: Reports: Cholecystectomy, Colonoscopy, EGD Musculoskeletal Surgical History: Reports: Hip Replacement Social & Family History - Family History Family Medical History: Noncontributory - Tobacco Use Smoking Status *Q: Former Smoker Years of Tobacco use: 50 Packs/Tins Daily: 3 Used Tobacco, but Quit: No Month Tobacco Last Used: 1999 Second Hand Smoke Exposure: No - Caffeine Use Caffeine Use: Reports: Coffee - Recreational Drug Use Recreational Drug Use: No - Living Situation & Occupation Living situation: Reports: Single Occupation: Disabled ED ROS ENT - Review of Systems Review Of Systems: See Below Constitutional: Reports: Weakness. Denies: Fever, Chills, Malaise, Fatigue, Weight Loss HEENT: Reports: Other (Painful lesion inner aspect of left nose.). Denies: Nosebleed Respiratory: Reports: Shortness of Breath, Cough (Chronically due to COPD and is on oxygen 24 hours daily. Intermittent cough minimal sputum production) Cardiovascular: Reports: No Symptoms Endocrine: Reports: No Symptoms GI/Abdominal: Reports: Constipation Musculoskeletal: Reports: Joint Pain (Knees hips lower back and neck at times.) Skin: Reports: Bruising (Bruises fairly easily.) Neurological: Reports: No Symptoms Psychiatric: Reports: No Symptoms Hematologic/Lymphatic: Reports: No Symptoms ED EXAM, ENT - Physical Exam Exam: See Below Exam Limited By: No Limitations General Appearance: Alert, WD/WN, No Apparent Distress Nose: Other (Patient has a 6 mm x 3 mm ulceration on the anterior nasal septum. It is erythematous and minimally purulent. There is no true septal perforation yet. It appears that ischemia is likely the cause from nasal prongs resting against this area was secondary infection. On the right side it does show some swelling of the nasal turbinates bilaterally without any breakdown of the mucosa.) Extremities: Other (Had a look in her left anterior knee where she has fallen. She is contused the anterior knee over the tibial tuberosity. She has full extension and full range of motion without evidence of any bony fracture. Early bruising is evident.) Course - Vital Signs Last Recorded V/S: Last Vital Signs Temp 36.2 C 12/08/16 18:04 Pulse 90 12/08/16 18:04 Resp 20 12/08/16 18:04 BP 100/80 12/08/16 18:04 Pulse Ox 98 12/08/16 18:04 - Radiology Interpretation Free Text/Narrative:: 76-year-old female attends the ED with painful lesion in her left naris for the better part of 2 weeks but much worse the last few days. No associated nasal drainage or bleeding. She does not use any nasal sprays. She is on continuous oxygen 24 hours daily for COPD. Therefore nasal prongs or pressing on this area intermittently. Exam shows a 6 mm x 3 mm ulceration of the anterior nasal septum on the left side. She'll be treated with Bactroban ointment into the naris by Q-tip twice daily until the ulceration has time to heal. She will leave her prongs of her 1012 minutes after application of the Bactroban to allow it to melts or achieve body temperature so not to plug her prongs. Eyes follow-up with her personal physician in 10-12 days time to see if medication needs to be continued or whether the ulcer is healed. I did not cauterize the areas there was no active bleeding today. Departure - Departure Time of Disposition: 18:16 Disposition: Home, Self-Care 01 Condition: Fair Clinical Impression: Nasal mucositis (ulcerative) - Discharge Information Prescriptions: Mupirocin Oint [Bactroban Oint] 22 gm TOP TID #1 tube Referrals: PCP,Unknown [Primary Care Provider] - Forms: ED Department Discharge Additional Instructions: Evaluation in the emergency him today in regards to gradually increasing sore developing inside the left nose. Chronic use of oxygen via nasal prongs appears to be the source of the problem in terms at the prongs have created a pressure ulcer on the septum of the nose left side. The area now appears to be secondarily infected as well. Treatment is use of Bactroban ointment applied to the inner aspect of the naris twice daily bedtime and morning and wait for about 10 minutes without oxygen use to melt or reach body temperature. Make sure that a lot of the antibiotic reaches the nasal septum or the middle part of the nose on the left side. Suggest use for a medication twice daily for 10 days and then stop. If ulceration returns then follow-up with your physician or ear nose and throat physician is indicated.
== END 2016-12-08 18:40 | disposition home or self-care (01) ==
LOC: JD.ED 17:55
DX: J34.81 Nasal mucositis (ulcerative) (principal); I10 Essential (primary) hypertension; J45.909 Unspecified asthma, uncomplicated; F41.9 Anxiety disorder, unspecified; K21.9 Gastro-esophageal reflux disease without esophagitis; Z88.1 Allergy status to other antibiotic agents; Z79.82 Long term (current) use of aspirin; Z79.899 Other long term (current) drug therapy; Z88.2 Allergy status to sulfonamides; Z90.49 Acquired absence of other specified parts of digestive tract; Z96.649 Presence of unspecified artificial hip joint; Z87.891 Personal history of nicotine dependence
CPT/HCPCS: 99283

== ENCOUNTER 2017-02-02 15:26 | Emergency (ER) | payer MEDICARE, MEDICAID ==
[2017-02-02 16:24] VITALS: BP 131/86
--- NOTE | 2017-02-02 18:31 | EDM.PDOC ---
ED HPI GENERAL MEDICAL PROBLEM - General Chief Complaint: Respiratory Problem Stated Complaint: DIFFICULTY BREATHING ON OXYGEN Time Seen by Provider: 02/02/17 16:39 Source of Information: Reports: Patient, RN Notes Reviewed - History of Present Illness INITIAL COMMENTS - FREE TEXT/NARRATIVE: 76-year-old female comes in short of breath. She does have history of COPD. She does use home oxygen. She has been coughing somewhat more than usual. Cough is been mostly nonproductive. Unaware of fever or chills does have very low-grade fever on arrival to ED. Eyes current sore throat. His had some difficulty with "nasal sores" apparently from the oxygen cannula. She has been using some Bactroban type ointment which helps the sores but then she feels like her nose is "more plugged". No chest or abdominal pain at this time. No nausea or vomiting. Nare Pain Score (Numeric/FACES): 4 - Related Data Allergies Allergy/AdvReac Type Severity Reaction Status Date / Time azithromycin Allergy Cannot Verified 12/08/16 18:03 Remember Sulfa (Sulfonamide Allergy Cannot Verified 12/08/16 18:03 Antibiotics) Remember Home Meds: Home Meds Arformoterol [Brovana] 15 mcg NEB BID 01/13/15 [History] Aspirin [Kane Aspirin] 81 mg PO DAILY 01/13/15 [History] Benztropine [Cogentin] 1 mg PO DAILY 01/13/15 [History] Budesonide [Pulmicort] 0.5 mg NEB BID 01/13/15 [History] Docusate Sodium [Stool Softener] 200 mg PO ASDIRECTED PRN 01/13/15 [History] Ipratropium [Atrovent HFA] 1 puff INH Q6H PRN 01/13/15 [History] Pantoprazole [ProTONIX] 40 mg PO DAILY 01/13/15 [History] Trifluoperazine 20 mg PO DAILY 01/13/15 [History] Valsartan 80 mg PO DAILY 01/13/15 [History] Diltiazem HCl [Cartia Xt] 120 mg PO DAILY #0 10/17/16 [Rx] Meclizine [Antivert] 25 mg PO Q6H PRN #20 tab.chew 10/17/16 [Rx] Mupirocin Oint [Bactroban Oint] 22 gm TOP TID #1 tube 12/08/16 [Rx] Mupirocin Oint [Bactroban Oint] 22 gm TOP TID #1 tube 02/02/17 [Rx] Past Medical History HEENT History: Reports: Impaired Vision Cardiovascular History: Reports: Hypertension Respiratory History: Reports: Asthma, COPD, Other (See Below) Other Respiratory History: emphysema Gastrointestinal History: Reports: Cholelithiasis, GERD, Hemorrhoids Genitourinary History: Reports: None [employer] 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 the voices went away after she turned to the lord 10 years ago. Oncologic (Cancer) History: Reports: Breast - Infectious Disease History Infectious Disease History: Reports: Chicken Pox, Influenza, Measles, Mumps - Past Surgical History GI Surgical History: Reports: Cholecystectomy, Colonoscopy, EGD Musculoskeletal Surgical History: Reports: Hip Replacement Social & Family History - Family History Family Medical History: Noncontributory - Tobacco Use Smoking Status *Q: Former Smoker Years of Tobacco use: 50 Packs/Tins Daily: 3 Used Tobacco, but Quit: Yes Month Tobacco Last Used: 20 yrs Second Hand Smoke Exposure: No - Caffeine Use Caffeine Use: Reports: Coffee, Tea - Recreational Drug Use Recreational Drug Use: No - Living Situation & Occupation Living situation: Reports: Single Occupation: Disabled ED ROS GENERAL - Review of Systems Review Of Systems: See Below Constitutional: Denies: Fever, Chills HEENT: Denies: Sinus Problem, Throat Pain Respiratory: Reports: Shortness of Breath, Cough, Sputum. Denies: Pleuritic Chest Pain Cardiovascular: Denies: Chest Pain (scant) GI/Abdominal: Denies: Abdominal Pain, Nausea, Vomiting Musculoskeletal: Reports: No Symptoms Skin: Reports: No Symptoms ED EXAM, GENERAL - Physical Exam Exam: See Below General Appearance: Alert, No Apparent Distress Eye Exam: Bilateral Eye: PERRL Nose: Other (there is some minor irritation bilateral nares from O2 cannula, no active bleeding) Throat/Mouth: Normal Inspection Head: No: Atraumatic, Facial Swelling Neck: Supple, Other (no JVD) Respiratory/Chest: No Respiratory Distress, Rhonchi (she does have a few rhonchi right base). No: Wheezing Cardiovascular: Regular Rate, Rhythm GI/Abdominal: Soft, Non-Tender Extremities: Normal Inspection. No: Pedal Edema, Leg Pain Neurological: Alert, Oriented, No Motor/Sensory Deficits Skin Exam: Warm, Dry, Normal Color Course - Vital Signs Last Recorded V/S: Last Vital Signs Temp 97.2 F 02/02/17 16:19 Pulse 84 02/02/17 16:19 Resp 16 02/02/17 16:19 BP 131/86 02/02/17 16:19 Pulse Ox 98 02/02/17 16:19 - Orders/Labs/Meds Orders: Active Orders 24 hr Category Date Time Status Chest 1V Frontal [CR] Stat Exams 02/02/17 16:47 Taken - Re-Assessments/Exams Free Text/Narrative Re-Assessment/Exam: 02/03/17 07:31 chest x-ray does not show acute infiltrate Departure - Departure Time of Disposition: 18:29 Disposition: Home, Self-Care 01 Condition: Fair Clinical Impression: Dyspnea Qualifiers: Dyspnea type: shortness of breath Qualified Code(s): R06.02 - Shortness of breath COPD (chronic obstructive pulmonary disease) Qualifiers: COPD type: unspecified COPD Qualified Code(s): J44.9 - Chronic obstructive pulmonary disease, unspecified - Discharge Information Prescriptions: Mupirocin Oint [Bactroban Oint] 22 gm TOP TID #1 tube Instructions: Shortness of Breath, [id number] Referrals: Cecelia Kaur [Primary Care Provider] - Forms: ED Department Discharge Additional Instructions: continue current medications, continue to use the antibiotic ointment to your nose but just a very small amount at a time, follow-up clinic as needed, return to ED as needed if symptoms worsening in any way - My Orders Last 24 Hours: My Active Orders 02/02/17 16:47 Chest 1V Frontal [CR] Stat - Assessment/Plan Last 24 Hours: My Active Orders 02/02/17 16:47 Chest 1V Frontal [CR] Stat
--- NOTE | 2017-02-04 12:49 | CR ---
Chest: Portable view of the chest was obtained. Comparison: Prior chest x-ray of 10/15/16. Heart size and mediastinum are within normal limits for portable technique. Lungs are clear but hyperinflated. Bony structures show degenerative change within the right shoulder. Bony structures are also osteopenic. Impression: 1. Emphysematous change. Other incidental findings. 2. Nothing acute is identified on portable chest x-ray. Diagnostic code #2
== END 2017-02-02 18:55 | disposition home or self-care (01) ==
LOC: JD.ED 15:26
DX: J44.9 Chronic obstructive pulmonary disease, unspecified (principal); I10 Essential (primary) hypertension; K21.9 Gastro-esophageal reflux disease without esophagitis; Z88.1 Allergy status to other antibiotic agents; Z88.2 Allergy status to sulfonamides; Z79.82 Long term (current) use of aspirin; Z79.899 Other long term (current) drug therapy; Z87.891 Personal history of nicotine dependence
CPT/HCPCS: 71010; 71010-26; 99285

== ENCOUNTER 2017-09-08 21:42 | Emergency (ER) | payer MEDICARE, MEDICAID ==
[2017-09-08 21:53] VITALS: BP 180/65
--- NOTE | 2017-09-08 22:45 | EDM.PDOC ---
ED HPI GENERAL MEDICAL PROBLEM - General Chief Complaint: Respiratory Problem Stated Complaint: [facility] Time Seen by Provider: 09/08/17 21:56 Source of Information: Reports: Patient, Family (Daughter Alice) History Limitations: Reports: Other (The patient answers rare questions. The majority of the patient's history is provided by her daughter.) - History of Present Illness INITIAL COMMENTS - FREE TEXT/NARRATIVE: The patient's daughter states that the patient has been bedridden for nearly a year, getting out of the house only occasionally. She has been complaining of lower abdominal pain and low back pain for about 2 weeks. She was seen by a Urologist on 08/30/2016. A urinalysis was apparently negative for UTI, and cystoscopy did not find any abnormalities. The patient now presents to the ED due to 3-4 days of generalized malaise, "not doing well", according to the patient's significant other, and decreased oral intake due to decreased appetite. No recent fever, nausea, vomiting, constipation, or diarrhea. The patient has a chronic dry cough, unchanged from her usual. No recent chest pain, although the patient reports the sensation of a racing heart on and off over the past year. The patient has history of COPD, and takes supplemental oxygen 3L continuously. The patient's PCP is Lilian Blackmon. - Related Data Allergies Allergy/AdvReac Type Severity Reaction Status Date / Time azithromycin Allergy Cannot Verified 09/08/17 21:47 Remember Sulfa (Sulfonamide Allergy Cannot Verified 09/08/17 21:47 Antibiotics) Remember Home Meds: Home Meds Arformoterol [Brovana] 15 mcg NEB BID 01/13/15 [History] Aspirin [[place] Aspirin] 81 mg PO DAILY 01/13/15 [History] Benztropine [Cogentin] 1 mg PO DAILY 01/13/15 [History] Budesonide [Pulmicort] 0.5 mg NEB BID 01/13/15 [History] Ipratropium [Atrovent HFA] 1 puff INH Q6H PRN 01/13/15 [History] Pantoprazole [ProTONIX] 40 mg PO DAILY 01/13/15 [History] Trifluoperazine 20 mg PO DAILY 01/13/15 [History] Arformoterol [Brovana] 1 inh INH BID 09/08/17 [History] Cranberry Extract [Cranberry] 1,500 mg PO DAILY 09/08/17 [History] Docusate Sodium/Sennosides [Senokot-S] 1 tab PO DAILY 09/08/17 [History] Esomeprazole [NexIUM] 40 mg PO DAILY 09/08/17 [History] Nitrofurantoin Monohyd/M-Cryst [Macrobid 100 mg Capsule] 1 cap PO Q12H #9 capsule 09/09/17 [Rx] Past Medical History HEENT History: Reports: Impaired Vision Cardiovascular History: Reports: Hypertension Respiratory History: Reports: COPD Gastrointestinal History: Reports: Cholelithiasis, GERD, Hemorrhoids [employer] History: Reports: Musculoskeletal History: Reports: Back Pain, Chronic, Fracture (right forearm) Psychiatric History: Reports: Anxiety, Schizophrenia Oncologic (Cancer) History: Reports: Breast (bilateral) - Infectious Disease History Infectious Disease History: Reports: Chicken Pox, Influenza, Measles, Mumps - Past Surgical History GI Surgical History: Reports: Cholecystectomy, Colonoscopy, EGD Musculoskeletal Surgical History: Reports: Hip Replacement (right) Oncologic Surgical History: Reports: Mastectomy (bilateral) Social & Family History - Family History Family Medical History: Noncontributory - Tobacco Use Smoking Status *Q: Former Smoker Years of Tobacco use: 41 Packs/Tins Daily: 4 Month/Year Tobacco Last Used: Quit 1997 Second Hand Smoke Exposure: No - Caffeine Use Caffeine Use: Reports: Coffee, Soda, Tea - Alcohol Use Alcohol Use History: Yes Date/Time of Last Drink Comment: Alcoholic, sober since 2002 - Recreational Drug Use Recreational Drug Use: No - Living Situation & Occupation Living situation: Reports: , with Significant Other Occupation: Retired ED ROS GENERAL - Review of Systems Review Of Systems: ROS reveals no pertinent complaints other than HPI. ED EXAM, GENERAL - Physical Exam Exam: See Below Exam Limited By: No Limitations General Appearance: Alert, WD/WN, Other (Looks fatigued) Eye Exam: Bilateral Eye: Normal Inspection Ears: Normal External Exam, Hearing Grossly Normal Nose: Normal Inspection, No Blood Throat/Mouth: Normal Inspection, Normal Lips, Normal Voice, No Airway Compromise Head: Atraumatic, Normocephalic Neck: Normal Inspection, Full Range of Motion Respiratory/Chest: No Respiratory Distress, Decreased Breath Sounds. No: Crackles, Rhonchi, Wheezing Cardiovascular: Normal Peripheral Pulses, No Gallop, No JVD, No Murmur, No Rub, Tachycardia (irregularly irregular) Peripheral Pulses: 4+: Radial (L), Radial (R) GI/Abdominal: Normal Bowel Sounds, Soft, Non-Tender, No Organomegaly, No Distention, No Abnormal Bruit, No Mass (Female) Exam: Deferred Rectal (Female) Exam: Deferred Extremities: Normal Inspection, Normal Range of Motion, Non-Tender, Normal Capillary Refill, No Pedal Edema Neurological: Alert, No Motor/Sensory Deficits Psychiatric: Flat Affect Skin Exam: Warm, Dry, Intact, Normal Color, No Rash EKG INTERPRETATION EKG Date: 09/08/17 Time: 22:26 Rhythm: Other (Sinus tachycardia) Rate (Beats/Min): 122 Loman: Normal P-Wave: Enlarged (LAE) QRS: Normal (Frequent PVC's. LVH by voltage.) ST-T: Normal QT: Normal Comparison: No Change (10/16/2016) Course - Vital Signs Last Recorded V/S: Last Vital Signs Temp 37.4 C 09/08/17 21:50 Pulse 116 H 09/08/17 21:50 Resp 33 H 09/08/17 21:50 BP 180/65 H 09/08/17 21:50 Pulse Ox 99 09/08/17 21:50 - Orders/Labs/Meds Orders: Active Orders 24 hr Category Date Time Status EKG Documentation Completion [RC] STAT Care 09/08/17 22:14 Active Ang Chest [CT] Stat Exams 09/08/17 23:26 Taken Chest 1V Frontal [CR] Stat Exams 09/08/17 22:14 Taken CULTURE BLOOD [BC] Stat Lab 09/08/17 22:30 Received CULTURE BLOOD [BC] Stat Lab 09/08/17 22:40 Received CULTURE URINE [RM] Stat Lab 09/08/17 23:26 Received PRO B-TYPE NATRIUR PEPT,BNPPRO [CHEM] Stat Lab 09/08/17 22:30 Received UA W/MICROSCOPIC [URIN] Stat Lab 09/08/17 22:58 Ordered Sodium Chloride 0.9% [Normal Saline] 1,000 ml Med 09/08/17 23:30 Active IV ASDIRECTED Sodium Chloride 0.9% [Normal Saline] 100 ml Med 09/08/17 23:45 Active IV ASDIRECTED Blood Culture x2 Reflex Set [OM.PC] Stat Oth 09/08/17 22:14 Ordered Medication Orders Sodium Chloride (Normal Saline) 1,000 mls @ 150 mls/hr IV ASDIRECTED MAREK Last Admin: 09/08/17 23:45 Dose: 150 mls/hr Sodium Chloride (Normal Saline) 100 mls @ 60 mls/hr IV ASDIRECTED MAREK Last Admin: 09/09/17 00:17 Dose: 60 mls/hr Labs: Laboratory Tests 09/08/17 09/08/17 09/08/17 Range/Units 22:14 22:30 22:30 WBC 7.42 (3.98-10.04) K/mm3 RBC 4.37 (3.98-5.22) M/mm3 Hgb 12.5 (11.2-15.7) gm/L Hct 39.8 (34.1-44.9) % MCV 91.1 (79.4-94.8) fl MCH 28.6 (25.6-32.2) pg MCHC 31.4 L (32.2-35.5) g/dl RDW Std Deviation 44.4 (36.4-46.3) fL Plt Count 190 (182-369) K/mm3 MPV 10.6 (9.4-12.3) fl Neutrophils % (Manual) 72 H (40-60) % Band Neutrophils % 1 (0-10) % Lymphocytes % (Manual) 17 L (20-40) % Atypical Lymphs % 0 % Monocytes % (Manual) 8 (2-10) % Eosinophils % (Manual) 1 (0.7-5.8) % Basophils % (Manual) 1 (0.1-1.2) Platelet Estimate Adequate RBC Morph Comment Normal PT 11.2 (9.5-12.1) SECONDS INR 1.03 APTT 29 (24-31) SECONDS D-Dimer, Quantitative 1.72 H (0.19-0.50) mg/L Puncture Site Lt radial ABG pH 7.44 (7.35-7.45) ABG pCO2 45.3 H (35.0-45.0) mmHg ABG pO2 96.0 (80.0-100.0) mmHg ABG HCO3 29.9 H (22.0-26.0) meq/L ABG O2 Saturation 96.5 (96.0-97.0) % ABG Base Excess 5.3 H (-2-2.0) Alexander Test Positive O2 Delivery Device Nasal cannula Oxygen Flow Rate 3.0 FiO2 0.00 L (21.00-100.00) % Sodium (136-145) mEq/L Potassium (3.5-5.1) mEq/L Chloride (98-107) mEq/L Carbon Dioxide (21-32) mEq/L Anion Gap (5-15) BUN (7-18) mg/dL Creatinine (0.55-1.02) mg/dL Est Cr Clr Drug Dosing mL/min Estimated GFR (MDRD) (>60) mL/min BUN/Creatinine Ratio (14-18) Glucose (83-115) mg/dL Lactic Acid (0.4-2.0) mmol/L Calcium (8.5-10.1) mg/dL Magnesium (1.8-2.4) mg/dl Total Bilirubin (0.2-1.0) mg/dL AST (15-37) U/L ALT (14-59) U/L Alkaline Phosphatase (46-116) U/L Troponin I (0.00-0.056) ng/mL Total Protein (6.4-8.2) g/dl Albumin (3.4-5.0) g/dl Globulin gm/dL Albumin/Globulin Ratio (1-2) Urine Color (Yellow) Urine Appearance (Clear) Urine pH (5.0-8.0) Ur Specific [place] (1.005-1.030) Urine Protein (Negative) Urine Glucose (UA) (Negative) Urine Ketones (Negative) Urine Occult Blood (Negative) Urine Nitrite (Negative) Urine Bilirubin (Negative) Urine Urobilinogen (0.2-1.0) Ur Leukocyte Esterase (Negative) Urine RBC (0-5) /hpf Urine WBC (0-5) /hpf Ur Epithelial Cells (0-5) /hpf Urine Bacteria (FEW) /hpf Urine Mucus (FEW) /hpf 09/08/17 09/08/17 09/08/17 Range/Units 22:30 22:30 22:58 WBC (3.98-10.04) K/mm3 RBC (3.98-5.22) M/mm3 Hgb (11.2-15.7) gm/L Hct (34.1-44.9) % MCV (79.4-94.8) fl MCH (25.6-32.2) pg MCHC (32.2-35.5) g/dl RDW Std Deviation (36.4-46.3) fL Plt Count (182-369) K/mm3 MPV (9.4-12.3) fl Neutrophils % (Manual) (40-60) % Band Neutrophils % (0-10) % Lymphocytes % (Manual) (20-40) % Atypical Lymphs % % Monocytes % (Manual) (2-10) % Eosinophils % (Manual) (0.7-5.8) % Basophils % (Manual) (0.1-1.2) Platelet Estimate RBC Morph Comment PT (9.5-12.1) SECONDS INR APTT (24-31) SECONDS D-Dimer, Quantitative (0.19-0.50) mg/L Puncture Site ABG pH (7.35-7.45) ABG pCO2 (35.0-45.0) mmHg ABG pO2 (80.0-100.0) mmHg ABG HCO3 (22.0-26.0) meq/L ABG O2 Saturation (96.0-97.0) % ABG Base Excess (-2-2.0) Alexander Test O2 Delivery Device Oxygen Flow Rate FiO2 (21.00-100.00) % Sodium 142 (136-145) mEq/L Potassium 4.0 (3.5-5.1) mEq/L Chloride 103 (98-107) mEq/L Carbon Dioxide 33 H (21-32) mEq/L Anion Gap 10.0 (5-15) BUN 16 (7-18) mg/dL Creatinine 0.9 (0.55-1.02) mg/dL Est Cr Clr Drug Dosing 52.97 mL/min Estimated GFR (MDRD) > 60 (>60) mL/min BUN/Creatinine Ratio 17.8 (14-18) Glucose 137 H (83-115) mg/dL Lactic Acid 1.1 (0.4-2.0) mmol/L Calcium 9.9 (8.5-10.1) mg/dL Magnesium 1.7 L (1.8-2.4) mg/dl Total Bilirubin 0.6 (0.2-1.0) mg/dL AST 7 L (15-37) U/L ALT 21 (14-59) U/L Alkaline Phosphatase 78 (46-116) U/L Troponin I < 0.017 (0.00-0.056) ng/mL Total Protein 6.9 (6.4-8.2) g/dl Albumin 2.5 L (3.4-5.0) g/dl Globulin 4.4 gm/dL Albumin/Globulin Ratio 0.6 L (1-2) Urine Color Yellow (Yellow) Urine Appearance Cloudy H (Clear) Urine pH 7.0 (5.0-8.0) Ur Specific [place] 1.020 (1.005-1.030) Urine Protein 2+ H (Negative) Urine Glucose (UA) Negative (Negative) Urine Ketones 2+ H (Negative) Urine Occult Blood 2+ H (Negative) Urine Nitrite Positive H (Negative) Urine Bilirubin Negative (Negative) Urine Urobilinogen 1.0 (0.2-1.0) Ur Leukocyte Esterase 3+ H (Negative) Urine RBC 10-20 H (0-5) /hpf Urine WBC >100 H (0-5) /hpf Ur Epithelial Cells 0-5 (0-5) /hpf Urine Bacteria Many H (FEW) /hpf Urine Mucus Few (FEW) /hpf Meds: Medications Generic Name Dose Route Start Last Admin Trade Name Freq PRN Reason Stop Dose Admin Sodium Chloride 1,000 mls @ 150 mls/hr 09/08/17 23:30 09/08/17 23:45 Normal Saline IV 150 mls/hr ASDIRECTED MAREK Administration Sodium Chloride 100 mls @ 60 mls/hr 09/08/17 23:45 09/09/17 00:17 Normal Saline IV 60 mls/hr ASDIRECTED MAREK Administration Discontinued Medications Generic Name Dose Route Start Last Admin Trade Name Freq PRN Reason Stop Dose Admin Iopamidol 100 ml 09/08/17 23:54 09/09/17 00:16 Isovue-370 (76%) IVPUSH 09/08/17 23:55 100 ml ONETIME ONE Administration Nitrofurantoin Macrocrystals 100 mg 09/08/17 23:27 09/08/17 23:45 Macrobid PO 09/08/17 23:28 100 mg ONETIME ONE Administration Sodium Chloride 10 ml 09/08/17 23:54 09/09/17 00:16 Saline Flush FLUSH 09/08/17 23:55 10 ml ONETIME ONE Administration - Re-Assessments/Exams Free Text/Narrative Re-Assessment/Exam: 09/08/17 22:45 The patient's ABG represents a combined mild respiratory acidosis and mild metabolic alkalosis. 09/08/17 22:56 Portable chest radiograph reviewed. Cardiac silhouette is within normal limits. No pulmonary vascular congestion. No pleural effusions. No focal infiltrate. No pneumothorax. Hyperinflation and bilateral diaphragmatic flattening, consistent with COPD, noted. Formal read per the Radiologist pending. 09/08/17 23:12 Notified by Enedelia ANAND that the lab is unable to process a BNP at this time. The urinalysis is consistent with a UTI. I have ordered a urine culture, and will start the patient on Macrobid. The patient's D-dimer has returned significantly elevated at 1.72. Her renal function is normal. I have ordered a CT angiogram of the chest to evaluate for a PE, as well as normal saline at 150 mL per hour. 09/09/17 00:53 CT angiogram of the chest is read by [facility] as: 1. No pulmonary embolus. 2. Significance centrilobular and bullous emphysema. 3. High density material within the distal esophagus with mid esophageal wall thickening. This may represent an ingested tablet or other ingested calcific substance. The distal esophageal bleed is not completely excluded. 4. Asymmetric stranding around the left kidney, which is partially imaged. 09/09/17 01:06 Test results discussed with the patient and her daughter. As above, the patient appears to have a urinary tract infection, and has been started on Macrobid. The remainder of her workup tonight was unremarkable. The patient's daughter is concerned about how she will get her mother home. She states that she cannot physically get the patient into and out of the car. The patient was brought by ambulance. I discussed this problem with the charge nurse , Nelli ANAND. She will look into whether the ambulance would be willing to return the patient home. 09/09/17 01:13 Notified that the ambulance is willing to return the patient home, however, they would charge their base rate, approximately $500. This is likely less than the cost of observation, and placing the patient into observation still does not solve the problem of how to get her home. 09/09/17 01:31 The patient's daughter was not willing to pay to have the ambulance return the patient home. She can arrange to have someone help her get her mother home at 07 :00 this morning. I will discharge the patient now, but she will physically remain in the ED until then. Departure - Departure Time of Disposition: 01:07 Disposition: Home, Self-Care 01 Condition: Fair Clinical Impression: UTI (urinary tract infection) - Discharge Information Referrals: Lilian Blackmon, RESIDENT CARE ASSISTANT [Primary Care Provider] - Forms: ED Department Discharge Additional Instructions: Ms. Garces was seen in the emergency room for 3-4 days of malaise and decreased appetite. Workup in the ER included blood work, an arterial blood gas, 2 sets of blood cultures, a urinalysis, a chest x-ray, a CT angiogram of the chest, and an ECG. The workup found that she has a urinary tract infection. The remainder of her workup was unremarkable. She does not have pneumonia, and is not suffering from a COPD exacerbation. She has not suffered a heart attack. Her electrolytes are within normal limits. She is not dehydrated. She has been started on the antibiotic Macrobid. A prescription for Macrobid has been sent to the [facility], on [place]. She should take one tablet of Macrobid every 12 hours, as prescribed. She should finish the entire prescription unless told otherwise by Lilian Blackmon. She should stay adequately hydrated over the next several days. She should follow-up with Ms. Blackmon on 09/11/2017, to check on her urine culture results, to make sure that she is on the correct antibiotic. If any other problems, please do not hesitate to return Ms. Garces to the ER. - My Orders Last 24 Hours: My Active Orders 09/08/17 22:14 EKG Documentation Completion [RC] STAT Chest 1V Frontal [CR] Stat Blood Culture x2 Reflex Set [OM.PC] Stat 09/08/17 22:30 CULTURE BLOOD [BC] Stat PRO B-TYPE NATRIUR PEPT,BNPPRO [CHEM] Stat 09/08/17 22:40 CULTURE BLOOD [BC] Stat 09/08/17 22:58 UA W/MICROSCOPIC [URIN] Stat 09/08/17 23:26 Ang Chest [CT] Stat CULTURE URINE [RM] Stat 09/08/17 23:30 Sodium Chloride 0.9% [Normal Saline] 1,000 ml IV ASDIRECTED 09/08/17 23:45 Sodium Chloride 0.9% [Normal Saline] 100 ml IV ASDIRECTED - Assessment/Plan Last 24 Hours: My Active Orders 09/08/17 22:14 EKG Documentation Completion [RC] STAT Chest 1V Frontal [CR] Stat Blood Culture x2 Reflex Set [OM.PC] Stat 09/08/17 22:30 CULTURE BLOOD [BC] Stat PRO B-TYPE NATRIUR PEPT,BNPPRO [CHEM] Stat 09/08/17 22:40 CULTURE BLOOD [BC] Stat 09/08/17 22:58 UA W/MICROSCOPIC [URIN] Stat 09/08/17 23:26 Ang Chest [CT] Stat CULTURE URINE [RM] Stat 09/08/17 23:30 Sodium Chloride 0.9% [Normal Saline] 1,000 ml IV ASDIRECTED 09/08/17 23:45 Sodium Chloride 0.9% [Normal Saline] 100 ml IV ASDIRECTED
[2017-09-08] MEDS ORDERED: Nitrofurantoin Monohydrate/Macrocrystalline 100 MG Cap PO ONE (23:27)
[2017-09-08] MEDS ORDERED: Sodium Chloride 0.9% 1,000 ML IV SCH (23:30)
[2017-09-08] MEDS ORDERED: Sodium Chloride 0.9% 100 ML IV SCH (23:45)
[2017-09-08] MEDS ORDERED: Sodium Chloride 0.9% 10 ML Syringe FLUSH ONE (23:54)
[2017-09-08] MEDS ORDERED: Iopamidol 755 Mg/ML 100 ML Bottle IVPUSH ONE (23:54)
--- NOTE | 2017-09-09 08:17 | CT ---
CT chest Technique: Multiple axial sections were obtained through the chest intravenous contrast was utilized. Study has been performed as a pulmonary angiogram protocol. Comparison: Recent chest x-ray performed on the same day as well as CT angiogram of the chest performed on 09/22/10. Findings: Several scattered subpleural nodules are seen within the chest. These are believed to be better seen on current study due to technique. Largest nodule within the left base measuring about 5 mm. These are felt to be stable from previous exam. Diffuse emphysematous change is noted within both lungs. Minimal areas of scarring are seen within the right lung base. No acute parenchymal change is appreciated. Small pericardial effusion is seen. Mild inflammatory stranding is seen around the left kidney which is not identified on prior study. Prior cholecystectomy is noted. High density area is identified within the distal esophagus. This does not have Hounsfield unit measurements of blood and presumably represents ingested material. Questionable thickening within the distal esophagus is likely due to hiatal hernia or change from reflux. Small cyst is identified within the right lobe of the liver measuring 1.4 cm in size. No filling defects are seen to indicate pulmonary embolism. Mediastinum and hilar regions show small normal-appearing lymph nodes. Bone window settings were reviewed which show mild degenerative spurring within the spine. Nothing acute is seen within the osseous structures. Prominent degenerative change is noted within the right shoulder with an osteochondral defect. Impression: 1. No findings of pulmonary embolism. 2. Increased density within the distal esophagus most likely due to ingested material as Hounsfield unit measurements do not appear to represent blood. 3. Slight thickening of the distal esophageal wall which may represent change from reflux esophagitis or a small hiatal hernia. 4. Diffuse emphysematous change and other findings which are felt to be incidental as described above. Diagnostic code #3 I agree with preliminary report from [facility], finalized at 09/09/17, 1:51 AM Central Time
--- NOTE | 2017-09-09 08:17 | CR ---
Chest: Frontal view of the chest was obtained. Comparison: Prior chest x-ray of 02/02/17. Heart size is within normal limits. Upper mediastinum also within normal limits. Minimal scarring is noted within the right lateral costophrenic angle. Lungs are clear with no acute parenchymal change. Bony structures are osteopenic. Degenerative change is noted within the right glenohumeral joint. Impression: 1. Incidental findings. Nothing acute is seen on frontal chest x-ray. Diagnostic code #2
== END 2017-09-09 06:59 | disposition home or self-care (01) ==
LOC: JD.ED 21:42
DX: N39.0 Urinary tract infection, site not specified (principal); J44.9 Chronic obstructive pulmonary disease, unspecified; I10 Essential (primary) hypertension; F20.9 Schizophrenia, unspecified; F41.9 Anxiety disorder, unspecified; Z99.81 Dependence on supplemental oxygen; Z88.1 Allergy status to other antibiotic agents; Z88.2 Allergy status to sulfonamides; Z79.899 Other long term (current) drug therapy; Z79.82 Long term (current) use of aspirin; Z87.891 Personal history of nicotine dependence
CPT/HCPCS: 36415; 36600; 71045; 71275; 80053; 81001; 82803; 83605; 83735; 83880; 84484; 85025; 85379; 85610; 85730; 87040; 87086; 87088; 87186; 93005; 96360; 96361; 99285; A9270; J7030; J7040; J7050; Q9967; 99283

== ENCOUNTER 2017-11-24 02:15 | Emergency (ER) | payer MEDICARE, MEDICAID ==
[2017-11-24 02:24] VITALS: BP 150/61
[2017-11-24] MEDS ORDERED: Sodium Chloride 0.9% 10 ML Syringe FLUSH PRN (02:24)
[2017-11-24] MEDS ORDERED: Albuterol/Ipratropium 3.0-0.5 MG/3 ML Neb Soln NEB ONE ×3 (02:25→04:40)
--- NOTE | 2017-11-24 02:31 | EDM.PDOC ---
ED HPI GENERAL MEDICAL PROBLEM - General Chief Complaint: Respiratory Problem Stated Complaint: [facility] Time Seen by Provider: 11/24/17 02:22 Source of Information: Reports: Patient, EMS Notes Reviewed History Limitations: Reports: No Limitations - History of Present Illness INITIAL COMMENTS - FREE TEXT/NARRATIVE: 77-year-old female presents to the ED per ambulance. She reports that she's been gradually experiencing increased dyspnea for several weeks but just gotten much worse over the last 48 hours. She found that even with her oxygen at home she wasn't getting satisfactory deep breaths. She wasn't using her home nebulizer treatments which she has available to her. Will see been running a fever for the last 2 days. His not been taking anything for the temperature. States she has a very productive sounding cough but not able to cough up any sputum. She's had no rigors or severe chills. Appetite has been very poor for a lengthy period of time. She had cancer of the left breast 20 years ago and was treated with simple mastectomy with no chemotherapy or radiotherapy. No known recurrent recurrence of cancer. Known COPD with occasional exacerbations. No recent pneumonias. Patient is usually on oxygen at home 2 L at all times. Paramedics identified her O2 sats being 89% on arrival. They placed her on 4 L and after a treatment with albuterol her sats came up as good as 99-100%. Onset: Gradual (Gradually worsening dyspnea over the last several weeks but particularly bad the last 2 days) Onset Date: 11/22/17 Duration: Day(s): Location: Reports: Chest (Increase troubles breathing with audible wheezing. Shortness of breath on minimal exertion such as going from the bedroom to the bathroom. No appetite. She has had very little oral intake over the last 2 days. ) Quality: Reports: Same as Previous Episode Severity: Moderate Improves with: Reports: Rest Worsens with: Reports: Movement Context: Denies: Activity, Exercise, Lifting, Sick Contact, Trauma, Other Associated Symptoms: Reports: Cough, Fever/Chills, Loss of Appetite, Malaise, Shortness of Breath, Weakness. 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.) Right Arm Pain Score (Numeric/FACES): 7 - Related Data Allergies Allergy/AdvReac Type Severity Reaction Status Date / Time azithromycin Allergy Cannot Verified 11/24/17 02:24 Remember Sulfa (Sulfonamide Allergy Cannot Verified 11/24/17 02:24 Antibiotics) Remember Home Meds: Home Meds Arformoterol [Brovana] 15 mcg NEB BID 01/13/15 [History] Aspirin [Reno Aspirin] 81 mg PO DAILY 01/13/15 [History] Benztropine [Cogentin] 1 mg PO DAILY 01/13/15 [History] Budesonide [Pulmicort] 0.5 mg NEB BID 01/13/15 [History] Ipratropium [Atrovent HFA] 1 puff INH Q6H PRN 01/13/15 [History] Trifluoperazine 10 mg PO DAILY 01/13/15 [History] Arformoterol [Brovana] 1 inh INH BID 09/08/17 [History] Docusate Sodium/Sennosides [Senokot-S] 1 tab PO DAILY 09/08/17 [History] Esomeprazole [NexIUM] 40 mg PO DAILY 09/08/17 [History] Albuterol/Ipratropium [DuoNeb 3.0-0.5 MG/3 ML] 3 ml .XX BID #60 neb 11/24/17 [Rx ] Cyanocobalamin (Vitamin B-12) [Vitamin B-12] 1 tab PO DAILY 11/24/17 [History] Metoprolol Tartrate 12.5 mg PO BID 11/24/17 [History] predniSONE [Prednisone] 20 mg PO ASDIRECTED #18 tablet 11/24/17 [Rx] Past Medical History HEENT History: Reports: Impaired Vision Cardiovascular History: Reports: Hypertension Respiratory History: Reports: Bronchitis, Recurrent, COPD Other Respiratory History: emphysema Gastrointestinal History: Reports: Cholelithiasis, GERD, Hemorrhoids Genitourinary History: Reports: Other (See Below) Other Genitourinary History: daughter states had blood in urine and was down to [place] to see a urologist the 30 of August who did a scope and obtained a urine sample, daughter states urine was orange in color but they have not heard back from him 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 the voices went away after she turned to the lord 10 years ago. Oncologic (Cancer) History: Reports: Breast (bilateral) - Infectious Disease History Infectious Disease History: Reports: Chicken Pox, Influenza, Measles, Mumps - Past Surgical History GI Surgical History: Reports: Cholecystectomy, Colonoscopy, EGD Musculoskeletal Surgical History: Reports: Hip Replacement (right) Oncologic Surgical History: Reports: Mastectomy (bilateral) Social & Family History - Family History Family Medical History: Noncontributory - Caffeine Use Caffeine Use: Reports: Coffee, Soda, Tea - Living Situation & Occupation Living situation: Reports: , with Significant Other Occupation: Retired ED ROS GENERAL - Review of Systems Review Of Systems: See Below Constitutional: Reports: Fever, Malaise, Weakness, Fatigue, Decreased Appetite, Weight Loss. Denies: Chills HEENT: Reports: Glasses Respiratory: Reports: Shortness of Breath, Wheezing, Cough. Denies: Pleuritic Chest Pain, Sputum (Doesn't get much sputum up.), Hemoptysis Cardiovascular: Reports: Blood Pressure Problem, Dyspnea on Exertion (Mild under ankles.), Edema. Denies: Chest Pain, Claudication, Lightheadedness, Orthopnea, Palpitations ( On x-ray) Endocrine: Reports: Fatigue GI/Abdominal: Reports: Decreased Appetite, Distension. Denies: Abdominal Pain, Constipation, Diarrhea, Difficulty Swallowing, Flatus, Hematemesis, Hematochezia , Melena, Nausea, Stool Incontinence, Vomiting, Other : Reports: Frequency, Incontinence (Urge and stress components). Denies: Dysuria, Flank Pain Musculoskeletal: Reports: Back Pain, Joint Pain (Knees hips and shoulders at times.) Skin: Reports: No Symptoms Neurological: Reports: No Symptoms Psychiatric: Reports: No Symptoms ED EXAM, GENERAL - Physical Exam Exam: See Below Exam Limited By: No Limitations General Appearance: Alert, WD/WN, Mild Distress, Other (She reports she is feeling better since treatment with nebulizer medication. Does like she can get more air.) Eye Exam: Bilateral Eye: Normal Inspection Ears: Normal TMs Throat/Mouth: Normal Inspection, Normal Oropharynx, Other Head: Atraumatic, Normocephalic Neck: Normal Inspection, Supple, Non-Tender, Full Range of Motion. No: Carotid Bruit, Lymphadenopathy (L), Lymphadenopathy (R) Respiratory/Chest: No Respiratory Distress, No Accessory Muscle Use, Decreased Breath Sounds (Decreased air entry to the lower 50% of lung adams worse on the left as compared to the right. No definite pleural effusion to percussion left side.), Rales (Few crackles are present bilaterally.), Wheezing (Diffuse audible wheezing throughout all lung adams on expiration only.). No: Normal Breath Sounds Cardiovascular: Regular Rate, Rhythm, No Gallop, No JVD, No Murmur, No Rub. No : Normal Peripheral Pulses Peripheral Pulses: 1+: Posterior Tibial (L), Posterior Tibial (R), Dorsalis Pedis (L), Dorsalis Pedis (R) GI/Abdominal: Soft, Non-Tender ( Diffusely distended and to beach percussion particular the upper abdomen compatible with aerophagia.), No Organomegaly, Distended (Fairly active bowel sounds all 4 quadrants.), Abnormal Bowel Sounds. No: Guarding, Rigid, Rebound, Tender Back Exam: Other (Mild kyphosis thoracic spine.). No: CVA Tenderness (L), CVA Tenderness (R) Extremities: Normal Range of Motion, Non-Tender, Pedal Edema (Trace edema at the ankles.) Neurological: Alert, Oriented, CN II-XII Intact, Normal Cognition Psychiatric: Normal Affect, Normal Mood Skin Exam: Warm, Dry, Intact, Normal Color, No Rash EKG INTERPRETATION EKG Date: 11/24/17 Time: 02:23 Rhythm: NSR Rate (Beats/Min): 76 [place]: Normal P-Wave: Enlarged (She has biatrial enlargement.) QRS: Other (She has early R-wave transition compatible with right ventricular hypertrophy versus septal hypertrophy pattern. There is also evidence of left ventricular hypertrophy pattern.) ST-T: Other (T-wave flattening 1 and inverted in aVL. T-wave fairly flat in V5 and V6 as well. Nonspecific changes) QT: Normal EKG Interpretation Comments: Abnormal ECG. Course - Vital Signs Last Recorded V/S: Last Vital Signs Temp 36.1 C 11/24/17 02:18 Pulse 74 11/24/17 02:18 Resp 14 11/24/17 02:18 BP 150/61 H 11/24/17 02:18 Pulse Ox 100 11/24/17 02:18 - Orders/Labs/Meds Orders: Active Orders 24 hr Category Date Time Status EKG Documentation Completion [RC] STAT Care 11/24/17 02:23 Active Oxygen Therapy [RC] ASDIRECTED Care 11/24/17 02:23 Active Peripheral IV Care [RC] . DIRECTED Care 11/24/17 02:24 Active RT Aerosol Therapy [RC] ASDIRECTED Care 11/24/17 02:25 Active RT Aerosol Therapy [RC] ASDIRECTED Care 11/24/17 04:29 Active RT Aerosol Therapy [RC] ASDIRECTED Care 11/24/17 04:41 Active Chest 1V Frontal [CR] Stat Exams 11/24/17 02:23 Taken CULTURE BLOOD [BC] Stat Lab 11/24/17 02:35 Received CULTURE BLOOD [BC] Stat Lab 11/24/17 02:50 Received Sodium Chloride 0.9% [Saline Flush] Med 11/24/17 02:24 Active 10 ml FLUSH ASDIRECTED PRN Blood Culture x2 Reflex Set [OM.PC] Stat Oth 11/24/17 02:23 Ordered Peripheral IV Insertion Adult [OM.PC] Stat Oth 11/24/17 02:24 Ordered Medication Orders Sodium Chloride (Saline Flush) 10 ml FLUSH ASDIRECTED PRN PRN Reason: Keep Vein Open Last Admin: 11/24/17 04:47 Dose: 10 ml Labs: Laboratory Tests 11/24/17 11/24/17 11/24/17 Range/Units 02:35 03:20 03:20 WBC 7.31 (3.98-10.04) K/mm3 RBC 3.94 L (3.98-5.22) M/mm3 Hgb 11.4 (11.2-15.7) gm/L Hct 36.2 (34.1-44.9) % MCV 91.9 (79.4-94.8) fl MCH 28.9 (25.6-32.2) pg MCHC 31.5 L (32.2-35.5) g/dl RDW Std Deviation 47.2 H (36.4-46.3) fL Plt Count 230 (182-369) K/mm3 MPV 10.3 (9.4-12.3) fl Neutrophils % (Manual) 61 H (40-60) % Band Neutrophils % 0 (0-10) % Lymphocytes % (Manual) 30 (20-40) % Atypical Lymphs % 0 % Monocytes % (Manual) 3 (2-10) % Eosinophils % (Manual) 5 (0.7-5.8) % Basophils % (Manual) 1 (0.1-1.2) Platelet Estimate Adequate RBC Morph Comment Normal PT 10.7 (9.5-12.1) SECONDS INR 0.98 Sodium 143 (136-145) mEq/L Potassium 3.9 (3.5-5.1) mEq/L Chloride 105 (98-107) mEq/L Carbon Dioxide 37 H (21-32) mEq/L Anion Gap 4.9 L (5-15) BUN 16 (7-18) mg/dL Creatinine 0.9 (0.55-1.02) mg/dL Est Cr Clr Drug Dosing 51.90 mL/min Estimated GFR (MDRD) > 60 (>60) mL/min BUN/Creatinine Ratio 17.8 (14-18) Glucose 128 H (83-115) mg/dL Calcium 9.2 (8.5-10.1) mg/dL Magnesium 1.8 (1.8-2.4) mg/dl Total Bilirubin 0.3 (0.2-1.0) mg/dL AST 13 L (15-37) U/L ALT 14 (14-59) U/L Alkaline Phosphatase 72 (46-116) U/L CK-MB (CK-2) < 0.5 (0-3.6) ng/ml Troponin I < 0.017 (0.00-0.056) ng/mL C-Reactive Protein < 0.2 (<1.0) mg/dL NT-Pro-B Natriuret Pep (0-450) pg/mL Total Protein 5.9 L (6.4-8.2) g/dl Albumin 2.8 L (3.4-5.0) g/dl Globulin 3.1 gm/dL Albumin/Globulin Ratio 0.9 L (1-2) //18 Range/Units 03:20 WBC (3.98-10.04) K/mm3 RBC (3.98-5.22) M/mm3 Hgb (11.2-15.7) gm/L Hct (34.1-44.9) % MCV (79.4-94.8) fl MCH (25.6-32.2) pg MCHC (32.2-35.5) g/dl RDW Std Deviation (36.4-46.3) fL Plt Count (182-369) K/mm3 MPV (9.4-12.3) fl Neutrophils % (Manual) (40-60) % Band Neutrophils % (0-10) % Lymphocytes % (Manual) (20-40) % Atypical Lymphs % % Monocytes % (Manual) (2-10) % Eosinophils % (Manual) (0.7-5.8) % Basophils % (Manual) (0.1-1.2) Platelet Estimate RBC Morph Comment PT (9.5-12.1) SECONDS INR Sodium (136-145) mEq/L Potassium (3.5-5.1) mEq/L Chloride (98-107) mEq/L Carbon Dioxide (21-32) mEq/L Anion Gap (5-15) BUN (7-18) mg/dL Creatinine (0.55-1.02) mg/dL Est Cr Clr Drug Dosing mL/min Estimated GFR (MDRD) (>60) mL/min BUN/Creatinine Ratio (14-18) Glucose (83-115) mg/dL Calcium (8.5-10.1) mg/dL Magnesium (1.8-2.4) mg/dl Total Bilirubin (0.2-1.0) mg/dL AST (15-37) U/L ALT (14-59) U/L Alkaline Phosphatase (46-116) U/L CK-MB (CK-2) (0-3.6) ng/ml Troponin I (0.00-0.056) ng/mL C-Reactive Protein (<1.0) mg/dL NT-Pro-B Natriuret Pep 239 (0-450) pg/mL Total Protein (6.4-8.2) g/dl Albumin (3.4-5.0) g/dl Globulin gm/dL Albumin/Globulin Ratio (1-2) Meds: Medications Generic Name Dose Route Start Last Admin Trade Name Freq PRN Reason Stop Dose Admin Sodium Chloride 10 ml 11/24/17 02:24 11/24/17 04:47 Saline Flush FLUSH 10 ml ASDIRECTED PRN Administration Keep Vein Open Discontinued Medications Generic Name Dose Route Start Last Admin Trade Name Kathrine PRN Reason Stop Dose Admin Albuterol/Ipratropium 3 ml 11/24/17 02:25 11/24/17 02:43 Duoneb 3.0-0.5 Mg/3 Ml NEB 11/24/17 02:26 3 ml ONETIME ONE Administration Albuterol/Ipratropium 3 ml 11/24/17 04:28 11/24/17 04:47 Duoneb 3.0-0.5 Mg/3 Ml NEB 11/24/17 04:29 3 ml ONETIME ONE Administration Albuterol/Ipratropium 6 ml 11/24/17 04:40 11/24/17 04:47 Duoneb 3.0-0.5 Mg/3 Ml NEB 11/24/17 04:41 6 ml ONETIME ONE Administration Methylprednisolone Sodium Succinate 125 mg 11/24/17 04:28 11/24/17 04:46 Solu-Medrol IVPUSH 11/24/17 04:29 125 mg ONETIME ONE Administration - Radiology Interpretation Free Text/Narrative:: 77-year-old female presents to the ED with an acute exacerbation of her COPD. She claims febrile illness at home the last 2 days with very poor oral intake with loss of appetite. Productive sounding cough but unable to get much sputum up. Sats apparently improved dramatically after the first treatment with albuterol. She is diffusely wheezing with very poor air entry to both lung adams posteriorly. Will give her a DuoNeb in the ED. O2 will be continued at 4 L/m by nasal cannula. Routine labs to be collected including blood cultures 2 although she is afebrile time of examination. One view chest x-ray and ECG to be done. - Re-Assessments/Exams Free Text/Narrative Re-Assessment/Exam: 11/24/17 02:58 maintaining O2 sats of 96% on 2 L/m. She usually is on 3 or 4 at home. EP is 162/58 heart rate 87. Chest x-ray done shows hyperinflated lung adams bilaterally. She is rotated significantly to the right no obvious pneumonia is evident. No pneumothorax is evident. There is some scar tissue in the base of the right lung field. I noted that she had a CT scan of the chest done with contrast back in September of this year which revealed a small to moderate- sized pleural effusion. 11/24/17 04:12 Labs are back. White count is 7.31 with normal differential of 61 % neutrophils and no bands. Hemoglobin is 11.4 with hematocrit 36.2. Platelet count is 230,000. PT is 10.7 with an INR 0.98. Sodium is 143 with a potassium of 3.9. Chloride 105 with a bicarbonate of 37 I she is a CO2 retainer. Anion gap is 4.9. BUN is 16 with a creatinine of 0.9. Glucose is 128. Calcium normal at 9.2. Magnesium normal at 1.8. Liver function is normal. Cardiac markers are normal with a CK-MB fraction of less than 0.5. Troponin I is less than 0.017. C- reactive protein is less than 0.2. BNP is 239. Protein is slightly low at 5.9 with an albumin fraction of 2.8. 11/24/17 04:29 patient reports she is much improved after DuoNeb treatment. Her O2 sats of remained 98% on 2 L as well. He is on 3 L at home most of the time. She has a CO2 retainer. I'm going to give her Solu-Medrol 125 mg IV and then will send her home with a course of prednisone 20 mg twice a day for 6 days then once daily in the morning for another 6 days to break acute exacerbation cycle. I think she would benefit from daily use of her home nebulizer using DuoNeb in the morning and at bedtime and I will send her home with 4 DuoNeb nebs from the ED. She will use her facemask instead of tea piece that she has at home. I'm going to have her follow-up with her personal care provider Brenda Baez on Saturday next week to make sure that she is on track. She claimed that she had had a fever at home but I could not demonstrate any fever in the ED and her labs do not support any signs of infection. There also is no signs of congestive heart failure aggravating her current COPD on. Thick secretions that she's not able to expectorate causing most of the difficulties. Departure - Departure Time of Disposition: 05:32 Disposition: Home, Self-Care 01 Condition: Fair Clinical Impression: Acute exacerbation of chronic obstructive pulmonary disease (COPD) - Discharge Information *PRESCRIPTION DRUG MONITORING PROGRAM REVIEWED*: Not Applicable *COPY OF PRESCRIPTION DRUG MONITORING REPORT IN PATIENT BRYCE: Not Applicable Prescriptions: Albuterol/Ipratropium [DuoNeb 3.0-0.5 MG/3 ML] 3 ml .XX BID #60 neb predniSONE [Prednisone] 20 mg PO ASDIRECTED #18 tablet Instructions: Chronic Obstructive Pulmonary Disease Exacerbation, [id number] Referrals: Brenda Nair PA-C [Primary Care Provider] - Forms: ED Department Discharge Additional Instructions: Evaluation the emergency room tonight in regards to acute worsening of your emphysema or COPD. You're struggling to get your air in her O2 sats were low at home apparently down to 89% according to the paramedics. You seem to respond very well to inhaled nebulized medications first dose was provided by the eminence and second dose was given in the ED. This improved airflow in your lungs so that her oxygen was up around 98% on 2 L of oxygen and near usually on 3 L at home. No further wheezing was evident on examination in the ED. Lab work does not show any signs of infection. It shows no sign of heart failure which would worsen your ability to breathe. You're decreased appetite I believe is due to the work of breathing and particular swallowing a lot of air filling the stomach with air so there is no room for food. As you indicated her appetite remains quite poor. At this time I do not see a need to play she was in the hospital. You were given a dose of steroid Solu-Medrol in the emergency department this morning. This is to try and help with airflow and inflammation in your lung tubes. I want to to use DuoNeb nebulizer treatments first thing in the morning and before bed which her home nebulizer machine on a long-term basis. They still use her albuterol nebulizer or your hand-held nebulizer as needed to help you breathe better. I'm also going to place her on a short course of steroid prednisone 20 mg with breakfast and supper for 6 days and then 1 tablet in the morning only for another 6 days in an effort to reduce inflammation in your lungs and improve your airflow and reduce mucus production. Hopefully also stimulate her appetite. I believe you should follow- up with your primary care provider Brenda Kirk on Saturday this week to make sure that you are getting much better on the above treatment plan. - My Orders Last 24 Hours: My Active Orders 11/24/17 02:23 EKG Documentation Completion [RC] STAT Oxygen Therapy [RC] ASDIRECTED Chest 1V Frontal [CR] Stat Blood Culture x2 Reflex Set [OM.PC] Stat 11/24/17 02:24 Peripheral IV Care [RC] . DIRECTED Sodium Chloride 0.9% [Saline Flush] 10 ml FLUSH ASDIRECTED PRN Peripheral IV Insertion Adult [OM.PC] Stat 11/24/17 02:25 RT Aerosol Therapy [RC] ASDIRECTED 11/24/17 02:35 CULTURE BLOOD [BC] Stat 11/24/17 02:50 CULTURE BLOOD [BC] Stat 11/24/17 04:29 RT Aerosol Therapy [RC] ASDIRECTED 11/24/17 04:41 RT Aerosol Therapy [RC] ASDIRECTED - Assessment/Plan Last 24 Hours: My Active Orders 11/24/17 02:23 EKG Documentation Completion [RC] STAT Oxygen Therapy [RC] ASDIRECTED Chest 1V Frontal [CR] Stat Blood Culture x2 Reflex Set [OM.PC] Stat 11/24/17 02:24 Peripheral IV Care [RC] . DIRECTED Sodium Chloride 0.9% [Saline Flush] 10 ml FLUSH ASDIRECTED PRN Peripheral IV Insertion Adult [OM.PC] Stat 11/24/17 02:25 RT Aerosol Therapy [RC] ASDIRECTED 11/24/17 02:35 CULTURE BLOOD [BC] Stat 11/24/17 02:50 CULTURE BLOOD [BC] Stat 11/24/17 04:29 RT Aerosol Therapy [RC] ASDIRECTED 11/24/17 04:41 RT Aerosol Therapy [RC] ASDIRECTED
[2017-11-24] MEDS ORDERED: methylPREDNISolone Sodium Succinate 125 MG/2 ML SDV IVPUSH ONE (04:28)
--- NOTE | 2017-11-24 11:01 | CR ---
Chest: Portable view of the chest was obtained. Comparison: Prior chest x-ray of 09/08/17. Heart size and mediastinum are within normal limits. Lungs are clear. Lungs are hyperinflated. Degenerative change is noted within the right glenohumeral joint. Osteopenia is seen. Impression: 1. Emphysematous change. Other incidental findings. Nothing acute is seen on portable chest x-ray. Diagnostic code #2
== END 2017-11-24 06:18 | disposition home or self-care (01) ==
LOC: JD.ED 02:15
DX: J44.9 Chronic obstructive pulmonary disease, unspecified (principal); I10 Essential (primary) hypertension; Z88.1 Allergy status to other antibiotic agents; Z79.82 Long term (current) use of aspirin; Z79.899 Other long term (current) drug therapy
CPT/HCPCS: 36415; 71045; 80053; 82553; 83735; 83880; 84484; 85007; 85027; 85610; 86140; 87040; 93005; 94640; 96374; 99285; J2930; J7050; 93010; 99284-25

== ENCOUNTER 2017-12-30 00:33 | Inpatient (IN) | payer MEDICARE, MEDICAID ==
[2017-12-30] MEDS ORDERED: cefTRIAXone 1 GM in Sodium Chloride 0.9% 100 ML IV ONE (01:41)
[2017-12-30] MEDS ORDERED: Albuterol/Ipratropium 3.0-0.5 MG/3 ML Neb Soln NEB ONE (04:15)
--- NOTE | 2017-12-30 08:35 | CR ---
Chest: Portable view of the chest is obtained. Comparison: Prior chest x-ray of 11/24/17. Heart is accentuated from portable technique. Upper mediastinum is prominent in size which appears stable. Lungs are clear but hyperinflated. Bony structures are osteopenic. Degenerative change is noted within the right shoulder. Impression: 1. Emphysematous change. Nothing acute is appreciated on portable chest x-ray. Diagnostic code #2
[2017-12-30] MEDS ORDERED: Ondansetron 4 MG Tab.DIS PO PRN (08:42)
[2017-12-30] MEDS ORDERED: Docusate Sodium 100 MG Cap PO PRN (08:42)
[2017-12-30] MEDS ORDERED: Polyethylene Glycol 3350 Powder 17 GM Packet PO PRN (08:42)
[2017-12-30] MEDS ORDERED: Ondansetron 4 MG/2 ML SDV IV PRN (08:42)
[2017-12-30] MEDS ORDERED: Metoprolol Tartrate 5 MG/5 ML SDV IVPUSH PRN (08:53)
[2017-12-30] MEDS ORDERED: hydrALAZINE 20 MG/ML SDV IVPUSH PRN (08:53)
[2017-12-30] MEDS ORDERED: Benztropine 1 MG Tab PO SCH (09:00)
[2017-12-30] MEDS ORDERED: Non-Formulary Medication 1 Each (Cranberry [Cranberry] 400 MG) PO SCH (09:00)
[2017-12-30] MEDS: Albuterol/Ipratropium 3.0-0.5 MG/3 ML Neb Soln NEB SCH ×2 (09:13→20:14)
[2017-12-30] MEDS: LORazepam 2 MG/ML SDV IVPUSH PRN ×2 (09:47→18:57)
[2017-12-30] MEDS: Sennosides 8.6 MG Tab PO SCH (09:50)
[2017-12-30] MEDS: Metoprolol Tartrate 25 MG Tab PO SCH ×2 (09:50→23:21)
[2017-12-30] MEDS: Cyanocobalamin (Vitamin B12) 1,000 MCG Tab PO SCH (09:50)
[2017-12-30] MEDS: Aspirin 81 MG Tab.Chew PO SCH (09:50)
[2017-12-30] MEDS: Pantoprazole 40 MG Tab.CR PO SCH (09:52)
[2017-12-30] MEDS: Sodium Chloride 0.9% 1,000 ML IV SCH (12:04)
[2017-12-30] MEDS ORDERED: Morphine 2 MG/ML Syringe IVPUSH ONE (12:22)
--- NOTE | 2017-12-30 13:33 | PCM.HP ---
H&P History of Present Illness - General Date of Service: 12/30/17 Admit Problem/Dx: Admission Diagnosis/Problem Admission Diagnosis/Problem UTI, Urinary tract infectious disease Source of Information: Patient, Family, Old Records, Provider, RN, RN Notes Reviewed History Limitations: Reports: Altered Mental Status - History of Present Illness Initial Comments - Free Text/Narative: Muna Garces is a 77 yo female who presented to our ED late last night with concerns over worsening confusion and back pain. Family reports the patient does have baseline confusion occasionally, however this was noted to be much worse. In the ED temp was 98.4. Pulse 93. Blood pressure 134/55. She was tachypneic with a respiratory rate of 22. Oxygen saturations was 96% on 3 L. Labs are obtained: CBC is normal 8.09. Hemoglobin 11.3. Hematocrit 37.2. She is normocytic. Platelets are low at 176,000. Neutrophils are normal at 66.9%. Sodium is 143. Potassium 3.8. Chloride 103. Carbon dioxide is very high at 42. Anion gap was low at 1.8. BUN is 10. Creatinine 0.7. EGFR greater than 60. Glucose is 138. Lactic acid 0.5. Calcium 9.7. Magnesium 1.8. Bilirubin 0.4. AST is 12, ALT 16, alkaline phosphatase 83. CRP is high at 15. Albumin is low at 2.9. UA was obtained and a cloudy appearance is noted. She has 1+ protein, 1+ ketones, trace occult blood, 3+ leuk esterase, greater than 100 WBCs , and moderate bacteria. Urine cultures pending. MRSA screen is negative. Blood cultures were obtained. She is subsequently admitted to the medical floor on telemetry. CODE STATUS is DNR/DNI. PCP is Dr. Abdullahi. She carries a history of: Impaired vision, hypertension, recurrent bronchitis, COPD, cholelithiasis, GERD, hemorrhoids, chronic back pain, anxiety, schizophrenia. - Related Data Allergies/Adverse Reactions: Allergies Allergy/AdvReac Type Severity Reaction Status Date / Time erythromycin base Allergy Cannot Verified 12/30/17 01:57 Remember Sulfa (Sulfonamide Allergy Cannot Verified 12/30/17 00:42 Antibiotics) Remember Home Medications: Home Meds Aspirin [[place] Aspirin] 81 mg PO DAILY 01/13/15 [History] Benztropine [Cogentin] 1 mg PO BEDTIME 01/13/15 [History] Ipratropium [Atrovent HFA] 1 puff INH Q6H PRN 01/13/15 [History] Trifluoperazine 20 mg PO BEDTIME 01/13/15 [History] Docusate Sodium/Sennosides [Senokot-S] 1 tab PO DAILY 09/08/17 [History] Esomeprazole [NexIUM] 40 mg PO DAILY 09/08/17 [History] Albuterol/Ipratropium [DuoNeb 3.0-0.5 MG/3 ML] 3 ml .XX BID #60 neb 11/24/17 [Rx ] Cyanocobalamin (Vitamin B-12) [Vitamin B-12] 1 tab PO DAILY 11/24/17 [History] Metoprolol Tartrate 12.5 mg PO BID 11/24/17 [History] Acetaminophen [Tylenol] 650 mg PO Q4H PRN 12/30/17 [History] Cranberry 400 mg PO BID 12/30/17 [History] LORazepam [Ativan] 0.5 mg PO BID PRN 12/30/17 [History] Mag Hydrox/Al Hydrox/Simeth [Alum-Mag Hydroxide-Simeth Liq] 30 ml PO DAILY PRN 12/30/17 [History] Melatonin 3 mg PO DAILY PRN 12/30/17 [History] Sennosides [Senna] 8.6 mg PO DAILY 12/30/17 [History] Past Medical History HEENT History: Reports: Impaired Vision Cardiovascular History: Reports: Hypertension Respiratory History: Reports: Bronchitis, Recurrent, COPD Other Respiratory History: emphysema Gastrointestinal History: Reports: Cholelithiasis, GERD, Hemorrhoids Genitourinary History: Reports: Other (See Below) Other Genitourinary History: daughter states had blood in urine and was down to [place] to see a urologist the 30 of August who did a scope and obtained a urine sample, daughter states urine was orange in color but they have not heard back from him 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 the voices went away after she turned to the lord 10 years ago. Oncologic (Cancer) History: Reports: Breast - Infectious Disease History Infectious Disease History: Reports: Chicken Pox, Influenza, Measles, Mumps - Past Surgical History GI Surgical History: Reports: Cholecystectomy, Colonoscopy, EGD Musculoskeletal Surgical History: Reports: Hip Replacement Oncologic Surgical History: Reports: Mastectomy Social & Family History - Family History Family Medical History: Noncontributory - Tobacco Use Smoking Status *Q: Former Smoker Used Tobacco, but Quit: Yes Month/Year Tobacco Last Used: 1997 - Caffeine Use Caffeine Use: Reports: Coffee - Recreational Drug Use Recreational Drug Use: No - Living Situation & Occupation Living situation: Reports: , with Significant Other Occupation: Retired H&P Review of Systems - Review of Systems: Review Of Systems: Unable To Obtain Free Text/Narrative: Patient is on BIPAP and very confused. Exam - Exam Exam: See Below - Vital Signs Vital Signs: Last Vital Signs Temp 99.8 F 12/30/17 08:42 Pulse 107 H 12/30/17 09:50 Resp 26 H 12/30/17 08:42 BP 185/75 H 12/30/17 09:50 Pulse Ox 91 L 12/30/17 08:43 Weight: 139 lb 6.4 oz - Exam Quality Assessment: Supplemental Oxygen, DVT Prophylaxis, Other (BIPAP) General: Sedated. No: Mild Distress HEENT: Conjunctiva Clear, EACs Clear, Hearing Intact, Mucosa Moist & [place], Nares Patent, PERRLA Neck: Supple, Trachea Midline Lungs: Normal Respiratory Effort, Decreased Breath Sounds, Wheezing Cardiovascular: Regular Rate, Regular Rhythm GI/Abdominal Exam: Normal Bowel Sounds, Soft, Non-Tender, No Distention, No Mass (Female) Exam: Deferred Rectal (Female) Exam: Deferred Extremities: Normal Inspection, Normal Range of Motion, Non-Tender, No Pedal Edema, Normal Capillary Refill Peripheral Pulses: 2+: Dorsalis Pedis (L), Dorsalis Pedis (R), 3+: Radial (L), Radial (R) Skin: Warm, Dry, Intact - Patient Data Lab Results Last 24 hrs: Laboratory Results - last 24 hr 12/30/17 12/30/17 12/30/17 Range/Units 01:00 01:55 01:55 WBC 8.09 (3.98-10.04) K/mm3 RBC 3.95 L (3.98-5.22) M/mm3 Hgb 11.3 (11.2-15.7) gm/L Hct 37.2 (34.1-44.9) % MCV 94.2 (79.4-94.8) fl MCH 28.6 (25.6-32.2) pg MCHC 30.4 L (32.2-35.5) g/dl RDW Std Deviation 44.4 (36.4-46.3) fL Plt Count 176 L (182-369) K/mm3 MPV 10.1 (9.4-12.3) fl Neut % (Auto) 66.9 (34.0-71.1) % Lymph % (Auto) 9.0 L (19.3-51.7) % [place] % (Auto) 22.7 H (4.7-12.5) % Eos % (Auto) 1.1 (0.7-5.8) Baso % (Auto) 0.2 (0.1-1.2) % Neut # (Auto) 5.40 (1.56-6.13) K/mm3 Lymph # (Auto) 0.73 L (1.18-3.74) K/mm3 [place] # (Auto) 1.84 H (0.24-0.36) K/mm3 Eos # (Auto) 0.09 (0.04-0.36) K/mm3 Baso # (Auto) 0.02 (0.01-0.08) K/mm3 Manual Slide Review Abnormal smear Puncture Site ABG pH (7.35-7.45) ABG pCO2 (35.0-45.0) mmHg ABG pO2 (80.0-100.0) mmHg ABG HCO3 (22.0-26.0) meq/L ABG O2 Saturation (96.0-97.0) % ABG Base Excess (-2-2.0) Alexander Test A-a Gradient mmHg O2 Delivery Device Oxygen Flow Rate FiO2 (21.00-100.00) % Sodium 143 (136-145) mEq/L Potassium 3.8 (3.5-5.1) mEq/L Chloride 103 (98-107) mEq/L Carbon Dioxide 42 H* (21-32) mEq/L Anion Gap 1.8 L (5-15) BUN 10 (7-18) mg/dL Creatinine 0.7 (0.55-1.02) mg/dL Est Cr Clr Drug Dosing 65.80 mL/min Estimated GFR (MDRD) > 60 (>60) mL/min BUN/Creatinine Ratio 14.3 (14-18) Glucose 138 H (83-115) mg/dL Lactic Acid (0.4-2.0) mmol/L Calcium 9.7 (8.5-10.1) mg/dL Magnesium (1.8-2.4) mg/dl Total Bilirubin 0.4 (0.2-1.0) mg/dL AST 12 L (15-37) U/L ALT 16 (14-59) U/L Alkaline Phosphatase 83 (46-116) U/L C-Reactive Protein (<1.0) mg/dL Total Protein 6.5 (6.4-8.2) g/dl Albumin 2.9 L (3.4-5.0) g/dl Globulin 3.6 gm/dL Albumin/Globulin Ratio 0.8 L (1-2) Urine Color Yellow (Yellow) Urine Appearance Cloudy H (Clear) Urine pH 7.0 (5.0-8.0) Ur Specific [place] 1.020 (1.005-1.030) Urine Protein 1+ H (Negative) Urine Glucose (UA) Negative (Negative) Urine Ketones 1+ H (Negative) Urine Occult Blood Trace-intact H (Negative) Urine Nitrite Negative (Negative) Urine Bilirubin Negative (Negative) Urine Urobilinogen 0.2 (0.2-1.0) Ur Leukocyte Esterase 3+ H (Negative) Urine RBC 0-5 (0-5) /hpf Urine WBC >100 H (0-5) /hpf Urine WBC Clumps Few (NOT SEEN) /hpf Ur Epithelial Cells 0-5 (0-5) /hpf Urine Bacteria Moderate H (FEW) /hpf Urine Mucus Not seen (FEW) /hpf MRSA (PCR) 12/30/17 12/30/17 12/30/17 Range/Units 01:55 01:55 01:55 WBC (3.98-10.04) K/mm3 RBC (3.98-5.22) M/mm3 Hgb (11.2-15.7) gm/L Hct (34.1-44.9) % MCV (79.4-94.8) fl MCH (25.6-32.2) pg MCHC (32.2-35.5) g/dl RDW Std Deviation (36.4-46.3) fL Plt Count (182-369) K/mm3 MPV (9.4-12.3) fl Neut % (Auto) (34.0-71.1) % Lymph % (Auto) (19.3-51.7) % [place] % (Auto) (4.7-12.5) % Eos % (Auto) (0.7-5.8) Baso % (Auto) (0.1-1.2) % Neut # (Auto) (1.56-6.13) K/mm3 Lymph # (Auto) (1.18-3.74) K/mm3 [place] # (Auto) (0.24-0.36) K/mm3 Eos # (Auto) (0.04-0.36) K/mm3 Baso # (Auto) (0.01-0.08) K/mm3 Manual Slide Review Puncture Site ABG pH (7.35-7.45) ABG pCO2 (35.0-45.0) mmHg ABG pO2 (80.0-100.0) mmHg ABG HCO3 (22.0-26.0) meq/L ABG O2 Saturation (96.0-97.0) % ABG Base Excess (-2-2.0) Alexander Test A-a Gradient mmHg O2 Delivery Device Oxygen Flow Rate FiO2 (21.00-100.00) % Sodium (136-145) mEq/L Potassium (3.5-5.1) mEq/L Chloride (98-107) mEq/L Carbon Dioxide (21-32) mEq/L Anion Gap (5-15) BUN (7-18) mg/dL Creatinine (0.55-1.02) mg/dL Est Cr Clr Drug Dosing mL/min Estimated GFR (MDRD) (>60) mL/min BUN/Creatinine Ratio (14-18) Glucose (83-115) mg/dL Lactic Acid 0.5 (0.4-2.0) mmol/L Calcium (8.5-10.1) mg/dL Magnesium 1.8 (1.8-2.4) mg/dl Total Bilirubin (0.2-1.0) mg/dL AST (15-37) U/L ALT (14-59) U/L Alkaline Phosphatase (46-116) U/L C-Reactive Protein 15.0 H* (<1.0) mg/dL Total Protein (6.4-8.2) g/dl Albumin (3.4-5.0) g/dl Globulin gm/dL Albumin/Globulin Ratio (1-2) Urine Color (Yellow) Urine Appearance (Clear) Urine pH (5.0-8.0) Ur Specific [place] (1.005-1.030) Urine Protein (Negative) Urine Glucose (UA) (Negative) Urine Ketones (Negative) Urine Occult Blood (Negative) Urine Nitrite (Negative) Urine Bilirubin (Negative) Urine Urobilinogen (0.2-1.0) Ur Leukocyte Esterase (Negative) Urine RBC (0-5) /hpf Urine WBC (0-5) /hpf Urine WBC Clumps (NOT SEEN) /hpf Ur Epithelial Cells (0-5) /hpf Urine Bacteria (FEW) /hpf Urine Mucus (FEW) /hpf MRSA (PCR) 12/30/17 12/30/17 12/30/17 Range/Units 04:21 09:20 13:00 WBC (3.98-10.04) K/mm3 RBC (3.98-5.22) M/mm3 Hgb (11.2-15.7) gm/L Hct (34.1-44.9) % MCV (79.4-94.8) fl MCH (25.6-32.2) pg MCHC (32.2-35.5) g/dl RDW Std Deviation (36.4-46.3) fL Plt Count (182-369) K/mm3 MPV (9.4-12.3) fl Neut % (Auto) (34.0-71.1) % Lymph % (Auto) (19.3-51.7) % [place] % (Auto) (4.7-12.5) % Eos % (Auto) (0.7-5.8) Baso % (Auto) (0.1-1.2) % Neut # (Auto) (1.56-6.13) K/mm3 Lymph # (Auto) (1.18-3.74) K/mm3 [place] # (Auto) (0.24-0.36) K/mm3 Eos # (Auto) (0.04-0.36) K/mm3 Baso # (Auto) (0.01-0.08) K/mm3 Manual Slide Review Puncture Site Rt radial Rt radial ABG pH 7.26 L 7.31 L (7.35-7.45) ABG pCO2 102.1 H* 85.6 H* (35.0-45.0) mmHg ABG pO2 83.0 74.0 L (80.0-100.0) mmHg ABG HCO3 43.7 H 42.0 H (22.0-26.0) meq/L ABG O2 Saturation 94.4 L 92.6 L (96.0-97.0) % ABG Base Excess 12.9 H 13.2 H (-2-2.0) Alexander Test Positive Positive A-a Gradient 11 mmHg O2 Delivery Device Simple mask Bipap Oxygen Flow Rate 3.0 FiO2 32.00 0.00 L (21.00-100.00) % Sodium (136-145) mEq/L Potassium (3.5-5.1) mEq/L Chloride (98-107) mEq/L Carbon Dioxide (21-32) mEq/L Anion Gap (5-15) BUN (7-18) mg/dL Creatinine (0.55-1.02) mg/dL Est Cr Clr Drug Dosing mL/min Estimated GFR (MDRD) (>60) mL/min BUN/Creatinine Ratio (14-18) Glucose (83-115) mg/dL Lactic Acid (0.4-2.0) mmol/L Calcium (8.5-10.1) mg/dL Magnesium (1.8-2.4) mg/dl Total Bilirubin (0.2-1.0) mg/dL AST (15-37) U/L ALT (14-59) U/L Alkaline Phosphatase (46-116) U/L C-Reactive Protein (<1.0) mg/dL Total Protein (6.4-8.2) g/dl Albumin (3.4-5.0) g/dl Globulin gm/dL Albumin/Globulin Ratio (1-2) Urine Color (Yellow) Urine Appearance (Clear) Urine pH (5.0-8.0) Ur Specific [place] (1.005-1.030) Urine Protein (Negative) Urine Glucose (UA) (Negative) Urine Ketones (Negative) Urine Occult Blood (Negative) Urine Nitrite (Negative) Urine Bilirubin (Negative) Urine Urobilinogen (0.2-1.0) Ur Leukocyte Esterase (Negative) Urine RBC (0-5) /hpf Urine WBC (0-5) /hpf Urine WBC Clumps (NOT SEEN) /hpf Ur Epithelial Cells (0-5) /hpf Urine Bacteria (FEW) /hpf Urine Mucus (FEW) /hpf MRSA (PCR) Negative Result Diagrams: 12/30/17 01:55 12/30/17 01:55 Javed Results Last 24 hrs: Microbiology 12/30/17 09:00 Gram Stain - Final Sputum - Expectorated - Problem List (1) Acute exacerbation of chronic obstructive pulmonary disease (COPD) SNOMED Code(s): 265754809 ICD Code: J44.1 - CHRONIC OBSTRUCTIVE PULMONARY DISEASE W (ACUTE) EXACERBATION Status: Acute Current Visit: No (2) UTI (urinary tract infection) SNOMED Code(s): 12702586 ICD Code: N39.0 - URINARY TRACT INFECTION, SITE NOT SPECIFIED Status: Acute Current Visit: No (3) Acute hypercapnic respiratory failure SNOMED Code(s): 169457446 ICD Code: J96.02 - ACUTE RESPIRATORY FAILURE WITH HYPERCAPNIA Status: Acute Priority: High Current Visit: Yes (4) Respiratory acidosis SNOMED Code(s): 47545175 ICD Code: E87.2 - ACIDOSIS Status: Acute Priority: High Current Visit: Yes (5) Schizophrenia SNOMED Code(s): 37781473 ICD Code: F20.9 - SCHIZOPHRENIA, UNSPECIFIED Status: Chronic Priority: Medium Current Visit: No Qualifiers: Schizophrenia type: unspecified Qualified Code(s): F20.9 - Schizophrenia, unspecified (6) GERD (gastroesophageal reflux disease) SNOMED Code(s): 673456734 ICD Code: K21.9 - GASTRO-ESOPHAGEAL REFLUX DISEASE WITHOUT ESOPHAGITIS Status: Chronic Priority: Medium Current Visit: No Qualifiers: Esophagitis presence: esophagitis presence not specified Qualified Code(s) : K21.9 - Gastro-esophageal reflux disease without esophagitis (7) Chronic back pain SNOMED Code(s): 164941646 ICD Code: M54.9 - DORSALGIA, UNSPECIFIED; G89.29 - OTHER CHRONIC PAIN Status: Chronic Priority: Medium Current Visit: No Qualifiers: Back pain location: back pain in unspecified location Back pain laterality : unspecified Qualified Code(s): M54.9 - Dorsalgia, unspecified; G89.29 - Other chronic pain (8) Anxiety SNOMED Code(s): 80309979 ICD Code: F41.9 - ANXIETY DISORDER, UNSPECIFIED Status: Chronic Priority : Medium Current Visit: Yes (9) HTN (hypertension) SNOMED Code(s): 13834806 ICD Code: I10 - ESSENTIAL (PRIMARY) HYPERTENSION Status: Chronic Priority : Medium Current Visit: No Qualifiers: Hypertension type: unspecified Qualified Code(s): I10 - Essential (primary ) hypertension Problem List Initiated/Reviewed/Updated: Yes Orders Last 24hrs: Active Orders 24 hr Category Date Time Status Patient Status [ADT] Routine ADT 12/30/17 11:45 Active BIPAP Adult [RT BiPAP/CPAP] [RC] DAILY Care 12/30/17 10:12 Active Cardiac Monitoring [RC] CONTINUOUS Care 12/30/17 08:43 Active EKG Documentation Completion [RC] ASDIRECTED Care 12/30/17 01:41 Active Height and Weight [RC] 04 Care 12/30/17 08:42 Active Intake and Output [RC] 04,16 Care 12/30/17 08:43 Active Oxygen Therapy Adult [Oxygen Therapy] [RC] CONTINUOUS Care 12/30/17 04:16 Active Pulse Oximetry [RC] PRN Care 12/30/17 08:43 Active RT Aerosol Therapy [RC] ASDIRECTED Care 12/30/17 04:15 Active RT Aerosol Therapy [RC] ASDIRECTED Care 12/30/17 08:44 Active RT BiPAP/CPAP [RC] ASDIRECTED Care 12/30/17 10:10 Active Up With Assistance [RC] ASDIRECTED Care 12/30/17 04:18 Active VTE/DVT Education [RC] DAILY Care 12/30/17 08:42 Active Vital Signs [RC] Q4H Care 12/30/17 08:42 Active Consult to Ward Service Supervisor [CONS] Routine Cons 12/30/17 08:42 Active OT Evaluation and Treatment [CONS] Routine Cons 12/30/17 08:42 Active PT Evaluation and Treatment [CONS] Routine Cons 12/30/17 08:42 Active Respiratory Care Assess and Treatment [CONS] Routine Cons 12/30/17 08:42 Active Regular Diet [DIET] Diet 12/30/17 Breakfast Active ABG [BLOOD GAS ARTERIAL] [BG] Urgent Lab 12/30/17 18:00 Ordered BASIC METABOLIC PANEL,BMP [CHEM] AM Lab 12/31/17 05:11 Ordered BASIC METABOLIC PANEL,BMP [CHEM] AM Lab 01/01/18 05:11 Ordered BASIC METABOLIC PANEL,BMP [CHEM] AM Lab 01/02/18 05:11 Ordered BASIC METABOLIC PANEL,BMP [CHEM] AM Lab 01/03/18 05:11 Ordered CBC WITH AUTO DIFF [HEME] AM Lab 12/31/17 05:11 Ordered CBC WITH AUTO DIFF [HEME] AM Lab 01/01/18 05:11 Ordered CBC WITH AUTO DIFF [HEME] AM Lab 01/02/18 05:11 Ordered CBC WITH AUTO DIFF [HEME] AM Lab 01/03/18 05:11 Ordered CRP [C-REACTIVE PROTEIN] [CHEM] AM Lab 12/31/17 05:11 Ordered CRP [C-REACTIVE PROTEIN] [CHEM] AM Lab 01/01/18 05:11 Ordered CRP [C-REACTIVE PROTEIN] [CHEM] AM Lab 01/02/18 05:11 Ordered CRP [C-REACTIVE PROTEIN] [CHEM] AM Lab 01/03/18 05:11 Ordered CULTURE BLOOD [BC] Stat Lab 12/30/17 01:55 Received CULTURE BLOOD [BC] Stat Lab 12/30/17 02:05 Received CULTURE SPUTUM + SMEAR [RM] Routine Lab 12/30/17 09:00 Results CULTURE URINE [RM] Routine Lab 12/30/17 07:00 Received UA W/MICROSCOPIC [URIN] Stat Lab 12/30/17 01:00 Ordered Acetaminophen [Tylenol] Med 12/30/17 08:42 Active 650 mg PO Q4H PRN Albuterol/Ipratropium [DuoNeb 3.0-0.5 MG/3 ML] Med 12/30/17 09:00 Active 3 ml NEB BID Albuterol/Ipratropium [DuoNeb 3.0-0.5 MG/3 ML] Med 12/30/17 08:42 Active 3 ml NEB Q4H PRN Aspirin Med 12/30/17 09:00 Active 81 mg PO DAILY Benztropine [Cogentin] Med 12/30/17 21:00 Active 1 mg PO BEDTIME Bisacodyl [Dulcolax] Med 12/30/17 08:42 Active 5 mg PO DAILY PRN Cyanocobalamin (Vitamin B12) [Vitamin B12] Med 12/30/17 09:00 Active 1,000 mcg PO DAILY Docusate Sodium [Colace] Med 12/30/17 08:42 Active 100 mg PO BID PRN Docusate Sodium/Sennosides [Senna Plus] Med 12/30/17 08:42 Active 1 tab PO BID PRN Docusate Sodium/Sennosides [Senna Plus] Med 12/30/17 09:00 Active 1 tab PO DAILY LORazepam [Ativan] Med 12/30/17 09:38 Active 0.5 mg IVPUSH Q6H PRN LORazepam [Ativan] Med 12/30/17 08:49 Active 0.5 mg PO BID PRN Magnesium Rep Pharmacy to Dose [Pharmacy to Dose - Med 12/30/17 09:00 Active Magnesium Replacement] 0 dose .XX ASDIRECTED PRN Metoprolol Tartrate [Lopressor] Med 12/30/17 09:00 Active 12.5 mg PO BID Metoprolol Tartrate [Lopressor] Med 12/30/17 08:53 Active 5 mg IVPUSH Q4H PRN Ondansetron [Zofran ODT] Med 12/30/17 08:42 Active 4 mg PO Q6H PRN Ondansetron [Zofran] Med 12/30/17 08:42 Active 4 mg IV Q6H PRN Pantoprazole [ProTONIX] Med 12/30/17 09:15 Active 40 mg PO DAILY@0700 Polyethylene Glycol 3350 [MiraLAX] Med 12/30/17 08:42 Active 17 gm PO DAILY PRN Potassium Rep Pharmacy to Dose [Pharmacy to Dose - Med 12/30/17 09:00 Active Potassium Replacement] 0 dose .XX ASDIRECTED PRN Sennosides [Senna] Med 12/30/17 09:00 Active 8.6 mg PO DAILY Sodium Chloride 0.9% [Normal Saline] 1,000 ml Med 12/30/17 11:45 Active IV ASDIRECTED Trifluoperazine Med 12/30/17 21:00 Active 20 mg PO BEDTIME cefTRIAXone [Rocephin] 1 gm Med 12/31/17 01:00 Pending Sodium Chloride 0.9% [Normal Saline] 100 ml IV Q24H hydrALAZINE [Apresoline] Med 12/30/17 08:53 Active 10 mg IVPUSH Q6H PRN Blood Culture x2 Reflex Set [OM.PC] Stat Oth 12/30/17 01:41 Ordered Code Status [Resuscitation Status] Routine Resus Stat 12/30/17 04:31 Ordered EKG 12 Lead [EK] Stat Ther 12/30/17 01:41 Ordered Medication Orders Acetaminophen (Tylenol) 650 mg PO Q4H PRN PRN Reason: Pain (Mild 1-3)/fever Albuterol/Ipratropium (Duoneb 3.0-0.5 Mg/3 Ml) 3 ml NEB Q4H PRN PRN Reason: Shortness Of Breath/wheezing Albuterol/Ipratropium (Duoneb 3.0-0.5 Mg/3 Ml) 3 ml NEB BID [facility] Last Admin: 12/30/17 09:13 Dose: 3 ml Aspirin (Aspirin) 81 mg PO DAILY [facility] Last Admin: 12/30/17 09:50 Dose: 81 mg Benztropine Mesylate (Cogentin) 1 mg PO BEDTIME [facility] Bisacodyl (Dulcolax) 5 mg PO DAILY PRN PRN Reason: Constipation Cyanocobalamin (Vitamin B12) 1,000 mcg PO DAILY [facility] Last Admin: 12/30/17 09:50 Dose: 1,000 mcg Docusate Sodium (Colace) 100 mg PO BID PRN PRN Reason: Constipation Hydralazine HCl (Apresoline) 10 mg IVPUSH Q6H PRN PRN Reason: Hypertension Ceftriaxone Sodium 1 gm/ (Sodium Chloride) 100 mls @ 200 mls/hr IV Q24H [facility]AREK Sodium Chloride (Normal Saline) 1,000 mls @ 100 mls/hr IV ASDIRECTED [facility] Last Admin: 12/30/17 12:04 Dose: 100 mls/hr Lorazepam (Ativan) 0.5 mg PO BID PRN PRN Reason: Anxiety Lorazepam (Ativan) 0.5 mg IVPUSH Q6H PRN PRN Reason: Agitation Last Admin: 12/30/17 09:47 Dose: 0.5 mg Magnesium Sulfate (Pharmacy To Dose - Magnesium Replacement) 0 dose .XX ASDIRECTED PRN PRN Reason: RX TO WATCH MAG LEVELS Metoprolol Tartrate (Lopressor) 12.5 mg PO BID [facility] Last Admin: 12/30/17 09:50 Dose: 12.5 mg Metoprolol Tartrate (Lopressor) 5 mg IVPUSH Q4H PRN PRN Reason: Tachycardia Ondansetron HCl (Zofran Odt) 4 mg PO Q6H PRN PRN Reason: nausea, able to take PO Ondansetron HCl (Zofran) 4 mg IV Q6H PRN PRN Reason: Nausea/Vomiting Pantoprazole Sodium (Protonix) 40 mg PO DAILY@0700 [facility] Last Admin: 12/30/17 09:52 Dose: 40 mg Polyethylene Glycol (Miralax) 17 gm PO DAILY PRN PRN Reason: Constipation Potassium Chloride (Pharmacy To Dose - Potassium Replacement) 0 dose .XX ASDIRECTED PRN PRN Reason: RX TO WATCH K LEVELS Senna (Senna) 8.6 mg PO DAILY [facility] Last Admin: 12/30/17 09:50 Dose: 8.6 mg Senna/Docusate Sodium (Senna Plus) 1 tab PO BID PRN PRN Reason: Constipation Senna/Docusate Sodium (Senna Plus) 1 tab PO DAILY [facility] Last Admin: 12/30/17 09:49 Dose: 1 tab Trifluoperazine HCl (Trifluoperazine) 20 mg PO BEDTIME [facility] Assessment/Plan Comment:: I/P: Acute: Urinary Tract Infection -Family reports patient has been having urinary stones recently and seen urology -Hx/o UTIs with changes in mentation -Reportedly told daughter she thinks she may have a UTI a day or two before ED visit -UA in ED: Cloudy, 1+ protein, 1+ ketones, trace intact blood, 3+ leuk esterase, >100 WBC, Moderate bacteria -Urine culture pending -Lactic acid 0.5 -No leukocytosis, CRP 15.0 -Blood cultures pending -Started on 1gm Rocephin in ED - Continue -IV fluids as ordered Hypercapnic respiratory failure -Reportedly on 3L O2 normally -Hx/o COPD -Likely worsened by above - daughter reports similar episodes with prior UTIs -Initial ABG: pH 7.26, pCO2 102.1, pO2 83.0, HCO3 43.7, O2 saturation 94.4 -BIPAP started -0.5mg ativan for anxiety from mask -Repeat ABG: pH 7.31, pCO2 85.6, pO2 74, HCO3 42.0, O2 saturation 92.6 -Mentation improved with BIPAP -Repeat ABG this PM Exacerbation of COPD -Productive cough -Sputum culture sent -CXR shows eczematous change -Solu-medrol 60mg Q12HR for now -IS once off BIPAP -Home nebulizer schedule and add PRN -Monitor and replete magnesium -RT consult AMS -Much more confused than normal - daughter reports patient can usually carry on a conversation -Likely 2/2 above -Mentation improving with BIPAP -Treat underlying cause Chronic: Impaired vision hypertension recurrent bronchitis COPD cholelithiasis GERD hemorrhoids chronic back pain anxiety schizophrenia Plan: Admit to medical floor -> upgrade to ICU Other orders as indicated above PT/OT SW for discharge planning Routine AM labs DVT prophylaxis: Lovenox GI prophylaxis: Home PPI Code status: DNR/DNI; PCP: Dr. Abdullahi
[2017-12-30] MEDS: methylPREDNISolone Sodium Succinate 40 MG/1 ML SDV IVPUSH SCH (18:02)
[2017-12-30] MEDS: Benztropine 1 MG Tab PO SCH (23:21)
[2017-12-30] MEDS: LORazepam 0.5 MG Tab PO PRN (23:30)
[2017-12-31] MEDS: Albuterol/Ipratropium 3.0-0.5 MG/3 ML Neb Soln NEB PRN ×2 (00:10→13:44)
[2017-12-31] MEDS: cefTRIAXone 1 GM in Sodium Chloride 0.9% 100 ML IV SCH (00:31)
[2017-12-31] MEDS: LORazepam 2 MG/ML SDV IVPUSH PRN ×4 (02:44→19:43)
[2017-12-31] MEDS: methylPREDNISolone Sodium Succinate 40 MG/1 ML SDV IVPUSH SCH ×3 (04:19→20:06)
[2017-12-31] MEDS: LORazepam 0.5 MG Tab PO PRN ×2 (05:39→20:56)
[2017-12-31] MEDS: Pantoprazole 40 MG Tab.CR PO SCH (06:16)
--- NOTE | 2017-12-31 07:04 | ER ---
REASON FOR ADMISSION: Altered mental status and worsening of COPD. HISTORY OF PRESENT ILLNESS: This 77-year-old woman was brought in by ambulance accompanied by her daughter with altered mental status and worsening of her COPD symptoms. Apparently, there was some concern that she might have UTI as she has had these in the past. She does have history of COPD requiring oxygen at home at 3 L per nasal cannula. Her dyspnea and rattling in her chest with respiratory gurgling has worsened over the past couple of days, especially today. She has not had any documented fevers. Her daughter feels that she has had some chills. Her mental status has declined quite substantially. She does receive albuterol treatments. She has not had any GI symptoms. She denies any chest pain. She has not had any weakness on one side or the other. PAST MEDICAL HISTORY: Reviewed. See EMR. CURRENT MEDICATIONS: Reviewed. See EMR. REVIEW OF SYSTEMS: Pertinent positives and negatives as listed in the HPI. PHYSICAL EXAMINATION: GENERAL: She does appear to be quite somnolent. Her respirations are somewhat labored. VITAL SIGNS: See EMR. She is afebrile. HEENT: Head is normocephalic. There is no scleral icterus. Oral mucosa appears dry. NECK: There is no JVD. No bruits. No adenopathy. CHEST: She has bilateral diffuse rhonchi with diminished air exchange consistent with COPD. No wheezes or rales are noted. CARDIAC: Regular rate without murmur. ABDOMEN: Soft and nontender, nondistended. Normal bowel sounds are present. EXTREMITIES: Reasonably warm and pink. FURTHER EMERGENCY ROOM COURSE: A CBC was obtained. She has no leukocytosis. Her hemoglobin was 11.3. She does have relative monocytosis with 22.7% monocytes, this is twice the upper limit of normal. A CMP was obtained. She does have significant elevation of her carbon dioxide at 42, her previous CO2 level was 37 in November. Her electrolytes are otherwise normal. Her anion gap was 1.8. Her creatinine was 0.7. Her glucose was 130, but this is not a fasting value. Her liver enzymes are normal. Her urine is highly suggestive of UTI with 3+ leukocyte esterase, greater than 100 wbc's per high power field, moderate bacteria. Her chest x-ray does not show definite infiltrate, but the chest is rotated significantly. IMPRESSION: Altered mentation and positive urinalysis. She is set up for urosepsis which could explain her symptoms. She also has worsening of her chronic obstructive pulmonary disease. PLAN: I discussed her situation with Dr. Bran and felt that she should be hospitalized and treated for UTI, and we should go ahead and start her on Rocephin. She will need increased respiratory therapy as well and continued oxygen. I discussed this with the patient's daughter. She understands and agrees with this plan. TOI /[id number]
--- NOTE | 2017-12-31 08:09 | PCM.PN ---
- General Info Date of Service: 12/31/17 Admission Dx/Problem (Free Text): Admission Diagnosis/Problem Admission Diagnosis/Problem UTI, Urinary tract infectious disease Subjective Update: In to see Muna. She is sitting up in the chair resting. She has been fighting the BIPAP today. Will attempt to alternate with NC. Repeat ABG tonight. She only has one prior visit ABG and CO2 was in the 40's for that visit. Will add mucinex as she has been coughing quite a bit. Added azithromycin and increased steroid. Family is at bedside, including patients POA, and are updated. Lab reports gram + cocci. Hx/o VRE a few months ago. Consulted pharmacy and decision was made to start linezolide. Will likely have c/s results tomorrow. Functional Status: Reports: Pain Controlled, Tolerating Diet, Ambulating, Urinating. Denies: New Symptoms - Review of Systems General: Reports: No Symptoms. Denies: Fever, Weakness, Fatigue, Malaise HEENT: Reports: No Symptoms. Denies: Sore Throat Pulmonary: Reports: Shortness of Breath, Cough, Sputum Cardiovascular: Reports: No Symptoms. Denies: Chest Pain, Palpitations, Edema Gastrointestinal: Reports: No Symptoms. Denies: Abdominal Pain, Constipation, Diarrhea, Nausea, Vomiting Genitourinary: Reports: No Symptoms Musculoskeletal: Reports: Back Pain Skin: Reports: No Symptoms Neurological: Reports: No Symptoms Psychiatric: Reports: No Symptoms - Patient Data Vitals - Most Recent: Last Vital Signs Temp 97.3 F 12/31/17 03:00 Pulse 97 12/31/17 03:00 Resp 20 12/31/17 03:00 BP 138/63 12/31/17 03:00 Pulse Ox 100 12/31/17 06:13 Weight - Most Recent: 141 lb I&O - Last 24 Hours: Intake & Output 12/30/17 12/31/17 12/31/17 22:59 06:59 14:59 Intake Total 550 1549 Output Total 350 Balance 550 1199 Lab Results Last 24 Hours: Laboratory Results - last 24 hr 12/30/17 12/30/17 12/30/17 Range/Units 01:55 01:55 09:20 WBC (3.98-10.04) K/mm3 RBC (3.98-5.22) M/mm3 Hgb (11.2-15.7) gm/L Hct (34.1-44.9) % MCV (79.4-94.8) fl MCH (25.6-32.2) pg MCHC (32.2-35.5) g/dl RDW Std Deviation (36.4-46.3) fL Plt Count (182-369) K/mm3 MPV (9.4-12.3) fl Neut % (Auto) (34.0-71.1) % Lymph % (Auto) (19.3-51.7) % Stanton % (Auto) (4.7-12.5) % Eos % (Auto) (0.7-5.8) Baso % (Auto) (0.1-1.2) % Neut # (Auto) (1.56-6.13) K/mm3 Lymph # (Auto) (1.18-3.74) K/mm3 Stanton # (Auto) (0.24-0.36) K/mm3 Eos # (Auto) (0.04-0.36) K/mm3 Baso # (Auto) (0.01-0.08) K/mm3 Manual Slide Review Puncture Site Rt radial ABG pH 7.26 L (7.35-7.45) ABG pCO2 102.1 H* (35.0-45.0) mmHg ABG pO2 83.0 (80.0-100.0) mmHg ABG HCO3 43.7 H (22.0-26.0) meq/L ABG O2 Saturation 94.4 L (96.0-97.0) % ABG Base Excess 12.9 H (-2-2.0) Alexander Test Positive A-a Gradient mmHg O2 Delivery Device Simple mask Oxygen Flow Rate 3.0 FiO2 32.00 (21.00-100.00) % PEEP cmH20 Pressure Support cmH2O Magnesium 1.8 (1.8-2.4) mg/dl C-Reactive Protein 15.0 H* (<1.0) mg/dL 12/30/17 12/30/17 12/31/17 Range/Units 13:00 17:40 06:00 WBC (3.98-10.04) K/mm3 RBC (3.98-5.22) M/mm3 Hgb (11.2-15.7) gm/L Hct (34.1-44.9) % MCV (79.4-94.8) fl MCH (25.6-32.2) pg MCHC (32.2-35.5) g/dl RDW Std Deviation (36.4-46.3) fL Plt Count (182-369) K/mm3 MPV (9.4-12.3) fl Neut % (Auto) (34.0-71.1) % Lymph % (Auto) (19.3-51.7) % Stanton % (Auto) (4.7-12.5) % Eos % (Auto) (0.7-5.8) Baso % (Auto) (0.1-1.2) % Neut # (Auto) (1.56-6.13) K/mm3 Lymph # (Auto) (1.18-3.74) K/mm3 Stanton # (Auto) (0.24-0.36) K/mm3 Eos # (Auto) (0.04-0.36) K/mm3 Baso # (Auto) (0.01-0.08) K/mm3 Manual Slide Review Puncture Site Rt radial Rt radial Lt radial ABG pH 7.31 L 7.28 L 7.26 L (7.35-7.45) ABG pCO2 85.6 H* 88.3 H* 81.3 H* (35.0-45.0) mmHg ABG pO2 74.0 L 71.0 L 73.0 L (80.0-100.0) mmHg ABG HCO3 42.0 H 40.6 H 34.9 H (22.0-26.0) meq/L ABG O2 Saturation 92.6 L 91.7 L 91.8 L (96.0-97.0) % ABG Base Excess 13.2 H 11.7 H 6.1 H (-2-2.0) Alexander Test Positive Positive Positive A-a Gradient 11 11 30 mmHg O2 Delivery Device Bipap Bipap Nasal cannula Oxygen Flow Rate 2.0 FiO2 0.00 L 30.00 (21.00-100.00) % PEEP 7.0 cmH20 Pressure Support 14.0 cmH2O Magnesium (1.8-2.4) mg/dl C-Reactive Protein (<1.0) mg/dL 12/31/17 Range/Units 07:30 WBC 4.09 (3.98-10.04) K/mm3 RBC 4.19 (3.98-5.22) M/mm3 Hgb 11.8 (11.2-15.7) gm/L Hct 39.5 (34.1-44.9) % MCV 94.3 (79.4-94.8) fl MCH 28.2 (25.6-32.2) pg MCHC 29.9 L (32.2-35.5) g/dl RDW Std Deviation 45.1 (36.4-46.3) fL Plt Count 195 (182-369) K/mm3 MPV 10.6 (9.4-12.3) fl Neut % (Auto) 88.5 H (34.0-71.1) % Lymph % (Auto) 7.6 L (19.3-51.7) % Stanton % (Auto) 3.7 L (4.7-12.5) % Eos % (Auto) 0 L (0.7-5.8) Baso % (Auto) 0.0 L (0.1-1.2) % Neut # (Auto) 3.62 (1.56-6.13) K/mm3 Lymph # (Auto) 0.31 L (1.18-3.74) K/mm3 Stanton # (Auto) 0.15 L (0.24-0.36) K/mm3 Eos # (Auto) 0.00 L (0.04-0.36) K/mm3 Baso # (Auto) 0.00 L (0.01-0.08) K/mm3 Manual Slide Review Abnormal smear Puncture Site ABG pH (7.35-7.45) ABG pCO2 (35.0-45.0) mmHg ABG pO2 (80.0-100.0) mmHg ABG HCO3 (22.0-26.0) meq/L ABG O2 Saturation (96.0-97.0) % ABG Base Excess (-2-2.0) Alexander Test A-a Gradient mmHg O2 Delivery Device Oxygen Flow Rate FiO2 (21.00-100.00) % PEEP cmH20 Pressure Support cmH2O Magnesium (1.8-2.4) mg/dl C-Reactive Protein (<1.0) mg/dL Javed Results Last 24 Hours: Microbiology 12/30/17 09:00 Gram Stain - Final Sputum - Expectorated Sputum Culture - Preliminary 12/30/17 01:55 Aerobic Blood Culture - Preliminary Blood - Venous NO GROWTH AFTER 1 DAY Anaerobic Blood Culture - Preliminary NO GROWTH AFTER 1 DAY 12/30/17 02:05 Aerobic Blood Culture - Preliminary Blood - Venous - Lab Draw NO GROWTH AFTER 1 DAY Anaerobic Blood Culture - Preliminary NO GROWTH AFTER 1 DAY Med Orders - Current: Current Medications Acetaminophen (Tylenol) 650 mg PO Q4H PRN PRN Reason: Pain (Mild 1-3)/fever Albuterol/Ipratropium (Duoneb 3.0-0.5 Mg/3 Ml) 3 ml NEB Q4H PRN PRN Reason: Shortness Of Breath/wheezing Last Admin: 12/31/17 00:10 Dose: 3 ml Albuterol/Ipratropium (Duoneb 3.0-0.5 Mg/3 Ml) 3 ml NEB BID [facility] Last Admin: 12/30/17 20:14 Dose: 3 ml Aspirin (Aspirin) 81 mg PO DAILY [facility] Last Admin: 12/30/17 09:50 Dose: 81 mg Benztropine Mesylate (Cogentin) 1 mg PO BEDTIME [facility] Last Admin: 12/30/17 23:21 Dose: 1 mg Bisacodyl (Dulcolax) 5 mg PO DAILY PRN PRN Reason: Constipation Cyanocobalamin (Vitamin B12) 1,000 mcg PO DAILY [facility] Last Admin: 12/30/17 09:50 Dose: 1,000 mcg Docusate Sodium (Colace) 100 mg PO BID PRN PRN Reason: Constipation Enoxaparin Sodium (Lovenox) 40 mg SUBCUT DAILY [facility] Hydralazine HCl (Apresoline) 10 mg IVPUSH Q6H PRN PRN Reason: Hypertension Ceftriaxone Sodium 1 gm/ (Sodium Chloride) 100 mls @ 200 mls/hr IV Q24H [facility] Last Admin: 12/31/17 00:31 Dose: 200 mls/hr Sodium Chloride (Normal Saline) 1,000 mls @ 100 mls/hr IV ASDIRECTED [facility] Last Admin: 12/30/17 12:04 Dose: 100 mls/hr Lorazepam (Ativan) 0.5 mg PO BID PRN PRN Reason: Anxiety Last Admin: 12/31/17 05:39 Dose: 0.5 mg Lorazepam (Ativan) 0.5 mg IVPUSH Q6H PRN PRN Reason: Agitation Last Admin: 12/31/17 02:49 Dose: 0.5 mg Magnesium Sulfate (Pharmacy To Dose - Magnesium Replacement) 0 dose .XX ASDIRECTED PRN PRN Reason: RX TO WATCH MAG LEVELS Methylprednisolone Sodium Succinate (Solu-Medrol) 60 mg IVPUSH Q12H [facility] Last Admin: 12/31/17 04:19 Dose: 60 mg Metoprolol Tartrate (Lopressor) 12.5 mg PO BID [facility] Last Admin: 12/30/17 23:21 Dose: 12.5 mg Metoprolol Tartrate (Lopressor) 5 mg IVPUSH Q4H PRN PRN Reason: Tachycardia Ondansetron HCl (Zofran Odt) 4 mg PO Q6H PRN PRN Reason: nausea, able to take PO Ondansetron HCl (Zofran) 4 mg IV Q6H PRN PRN Reason: Nausea/Vomiting Pantoprazole Sodium (Protonix) 40 mg PO DAILY@0700 [facility] Last Admin: 12/31/17 06:16 Dose: 40 mg Polyethylene Glycol (Miralax) 17 gm PO DAILY PRN PRN Reason: Constipation Potassium Chloride (Pharmacy To Dose - Potassium Replacement) 0 dose .XX ASDIRECTED PRN PRN Reason: RX TO WATCH K LEVELS Senna (Senna) 8.6 mg PO DAILY [facility] Last Admin: 12/30/17 09:50 Dose: 8.6 mg Senna/Docusate Sodium (Senna Plus) 1 tab PO BID PRN PRN Reason: Constipation Senna/Docusate Sodium (Senna Plus) 1 tab PO DAILY [facility] Last Admin: 12/30/17 09:49 Dose: 1 tab Trifluoperazine HCl (Trifluoperazine) 20 mg PO BEDTIME [facility] Last Admin: 12/30/17 23:26 Dose: 20 mg Discontinued Medications Albuterol/Ipratropium (Duoneb 3.0-0.5 Mg/3 Ml) 3 ml NEB ONETIME ONE Stop: 12/30/17 04:16 Last Admin: 12/30/17 04:33 Dose: 3 ml Benztropine Mesylate (Cogentin) 1 mg PO DAILY [facility] Last Admin: 12/30/17 09:50 Dose: Not Given Ceftriaxone Sodium 1 gm/ (Sodium Chloride) 100 mls @ 200 mls/hr IV ONETIME ONE Stop: 12/30/17 02:10 Last Admin: 12/30/17 02:16 Dose: 200 mls/hr Morphine Sulfate (Morphine) 1 mg IVPUSH ONETIME ONE Stop: 12/30/17 12:23 Last Admin: 12/30/17 13:53 Dose: 1 mg Non-Formulary Medication (Cranberry [Cranberry]) 400 mg PO BID [facility] - Exam Quality Assessment: Supplemental Oxygen, DVT Prophylaxis General: Alert, Oriented, Cooperative HEENT: Pupils Equal, Pupils Reactive, EOMI, Mucous Membr. Moist/[place] Neck: Supple, Trachea Midline, No JVD Lungs: Normal Respiratory Effort, Decreased Breath Sounds, Wheezing. No: Rhonchi Cardiovascular: Regular Rate, Regular Rhythm GI/Abdominal Exam: Normal Bowel Sounds, Soft, Non-Tender, No Distention, No Abnormal Bruit (Female) Exam: Deferred Back Exam: Normal Inspection, Decreased Range of Motion Extremities: Normal Inspection, Normal Range of Motion, Non-Tender, No Pedal Edema, Normal Capillary Refill Peripheral Pulses: 2+: Radial (L), Radial (R), Dorsalis Pedis (L), Dorsalis Pedis (R) Skin: Warm, Dry, Intact Neurological: No New Focal Deficit Psy/Mental Status: Alert, Normal Affect, Normal Mood - Problem List & Annotations (1) Acute exacerbation of chronic obstructive pulmonary disease (COPD) SNOMED Code(s): 784171882 Code(s): J44.1 - CHRONIC OBSTRUCTIVE PULMONARY DISEASE W (ACUTE) EXACERBATION Status: Acute Current Visit: No (2) UTI (urinary tract infection) SNOMED Code(s): 80183765 Code(s): N39.0 - URINARY TRACT INFECTION, SITE NOT SPECIFIED Status: Acute Current Visit: No (3) Acute hypercapnic respiratory failure SNOMED Code(s): 677190768 Code(s): J96.02 - ACUTE RESPIRATORY FAILURE WITH HYPERCAPNIA Status: Acute Priority: High Current Visit: Yes (4) Respiratory acidosis SNOMED Code(s): 62546419 Code(s): E87.2 - ACIDOSIS Status: Acute Priority: High Current Visit: Yes (5) Schizophrenia SNOMED Code(s): 30373922 Code(s): F20.9 - SCHIZOPHRENIA, UNSPECIFIED Status: Chronic Priority: Medium Current Visit: No Qualifiers: Schizophrenia type: unspecified Qualified Code(s): F20.9 - Schizophrenia, unspecified (6) GERD (gastroesophageal reflux disease) SNOMED Code(s): 328552820 Code(s): K21.9 - GASTRO-ESOPHAGEAL REFLUX DISEASE WITHOUT ESOPHAGITIS Status: Chronic Priority: Medium Current Visit: No Qualifiers: Esophagitis presence: esophagitis presence not specified Qualified Code(s) : K21.9 - Gastro-esophageal reflux disease without esophagitis (7) Chronic back pain SNOMED Code(s): 165998373 Code(s): M54.9 - DORSALGIA, UNSPECIFIED; G89.29 - OTHER CHRONIC PAIN Status : Chronic Priority: Medium Current Visit: No Qualifiers: Back pain location: back pain in unspecified location Back pain laterality : unspecified Qualified Code(s): M54.9 - Dorsalgia, unspecified; G89.29 - Other chronic pain (8) Anxiety SNOMED Code(s): 22700039 Code(s): F41.9 - ANXIETY DISORDER, UNSPECIFIED Status: Chronic Priority: Medium Current Visit: Yes (9) HTN (hypertension) SNOMED Code(s): 05255414 Code(s): I10 - ESSENTIAL (PRIMARY) HYPERTENSION Status: Chronic Priority : Medium Current Visit: No Qualifiers: Hypertension type: unspecified Qualified Code(s): I10 - Essential (primary ) hypertension (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) SNOMED Code(s): 77676706479358588 Code(s): Z86.19 - PERSONAL HISTORY OF OTHER INFECTIOUS AND PARASITIC DISEASES Status: Chronic Priority: Medium Current Visit: No - Problem List Review Problem List Initiated/Reviewed/Updated: Yes - My Orders Last 24 Hours: My Active Orders 12/30/17 08:42 Height and Weight [RC] 04 VTE/DVT Education [RC] 10,22 Vital Signs [RC] Q4H Consult to Division Engineer [CONS] Routine OT Evaluation and Treatment [CONS] Routine PT Evaluation and Treatment [CONS] Routine Respiratory Care Assess and Treatment [CONS] Routine Acetaminophen [Tylenol] 650 mg PO Q4H PRN Albuterol/Ipratropium [DuoNeb 3.0-0.5 MG/3 ML] 3 ml NEB Q4H PRN Bisacodyl [Dulcolax] 5 mg PO DAILY PRN Docusate Sodium [Colace] 100 mg PO BID PRN Docusate Sodium/Sennosides [Senna Plus] 1 tab PO BID PRN Ondansetron [Zofran ODT] 4 mg PO Q6H PRN Ondansetron [Zofran] 4 mg IV Q6H PRN Polyethylene Glycol 3350 [MiraLAX] 17 gm PO DAILY PRN 12/30/17 08:43 Cardiac Monitoring [RC] CONTINUOUS Intake and Output [RC] 04,16 Pulse Oximetry [RC] PRN 12/30/17 08:49 LORazepam [Ativan] 0.5 mg PO BID PRN 12/30/17 08:53 Metoprolol Tartrate [Lopressor] 5 mg IVPUSH Q4H PRN hydrALAZINE [Apresoline] 10 mg IVPUSH Q6H PRN 12/30/17 09:00 CULTURE SPUTUM + SMEAR [RM] Routine Albuterol/Ipratropium [DuoNeb 3.0-0.5 MG/3 ML] 3 ml NEB BID Aspirin 81 mg PO DAILY Cyanocobalamin (Vitamin B12) [Vitamin B12] 1,000 mcg PO DAILY Docusate Sodium/Sennosides [Senna Plus] 1 tab PO DAILY Magnesium Rep Pharmacy to Dose [Pharmacy to Dose - Magnesium Replacement] 0 dose .XX ASDIRECTED PRN Metoprolol Tartrate [Lopressor] 12.5 mg PO BID Potassium Rep Pharmacy to Dose [Pharmacy to Dose - Potassium Replacement] 0 dose .XX ASDIRECTED PRN Sennosides [Senna] 8.6 mg PO DAILY 12/30/17 09:15 Pantoprazole [ProTONIX] 40 mg PO DAILY@0700 12/30/17 09:38 LORazepam [Ativan] 0.5 mg IVPUSH Q6H PRN 12/30/17 10:12 BIPAP Adult [RT BiPAP/CPAP] [RC] DAILY 12/30/17 11:45 Patient Status [ADT] Routine Sodium Chloride 0.9% [Normal Saline] 1,000 ml IV ASDIRECTED 12/30/17 17:00 methylPREDNISolone Sod Succ [Solu-MEDROL] 60 mg IVPUSH Q12H 12/30/17 17:21 IS (RT) [RT Incentive Spirometry] [RC] ASDIRECTED 12/30/17 21:00 Benztropine [Cogentin] 1 mg PO BEDTIME Trifluoperazine 20 mg PO BEDTIME 12/31/17 01:00 cefTRIAXone [Rocephin] 1 gm Sodium Chloride 0.9% [Normal Saline] 100 ml IV Q24H 12/31/17 07:30 BASIC METABOLIC PANEL,BMP [CHEM] AM CRP [C-REACTIVE PROTEIN] [CHEM] AM 12/31/17 09:00 Enoxaparin [Lovenox] 40 mg SUBCUT DAILY 01/01/18 05:11 BASIC METABOLIC PANEL,BMP [CHEM] AM CBC WITH AUTO DIFF [HEME] AM CRP [C-REACTIVE PROTEIN] [CHEM] AM 01/02/18 05:11 BASIC METABOLIC PANEL,BMP [CHEM] AM CBC WITH AUTO DIFF [HEME] AM CRP [C-REACTIVE PROTEIN] [CHEM] AM 01/03/18 05:11 BASIC METABOLIC PANEL,BMP [CHEM] AM CBC WITH AUTO DIFF [HEME] AM CRP [C-REACTIVE PROTEIN] [CHEM] AM - Plan Plan:: I/P: Acute: Urinary Tract Infection -Family reports patient has been having urinary stones recently and seen urology -Hx/o UTIs with changes in mentation -Reportedly told daughter she thinks she may have a UTI a day or two before ED visit -UA in ED: Cloudy, 1+ protein, 1+ ketones, trace intact blood, 3+ leuk esterase, >100 WBC, Moderate bacteria -Urine culture - gram positive cocci -History of VRE a few months ago -Lactic acid 0.5 -No leukocytosis, CRP 15.0-->21.6 -Blood cultures negative after 24 hours -Started on 1gm Rocephin in ED - based on c/s results so far, switch to linezolide -IV fluids as ordered Hypercapnic respiratory failure, improved -Reportedly on 3L O2 normally -Hx/o COPD -Likely worsened by above - daughter reports similar episodes with prior UTIs -Initial ABG: pH 7.26, pCO2 102.1, pO2 83.0, HCO3 43.7, O2 saturation 94.4 -BIPAP started -0.5mg ativan for anxiety from mask -Repeat ABG: pH 7.31, pCO2 85.6, pO2 74, HCO3 42.0, O2 saturation 92.6 -Mentation improved with BIPAP -Monitor ABGs - repeat tonight Exacerbation of COPD -Productive cough -Sputum culture sent - negative -Start azithromycin -CXR shows eczematous change -Solu-medrol 60mg Q12HR for now-> increase to Q8HR -IS once off BIPAP -Mucinex -Home nebulizer schedule and add PRN -Monitor and replete magnesium -RT consult AMS, improved -Much more confused than normal - daughter reports patient can usually carry on a conversation -Likely 2/2 above -Mentation improving with BIPAP -Treat underlying cause Chronic: Impaired vision hypertension recurrent bronchitis COPD cholelithiasis GERD hemorrhoids chronic back pain anxiety schizophrenia Hx/o VRE Plan: Admit to medical floor -> upgrade to ICU Other orders as indicated above PT/OT SW for discharge planning Routine AM labs Contact precautions DVT prophylaxis: Lovenox GI prophylaxis: Home PPI Code status: DNR/DNI; PCP: Dr. Abdullahi
[2017-12-31] MEDS: Albuterol/Ipratropium 3.0-0.5 MG/3 ML Neb Soln NEB SCH ×2 (09:21→20:40)
[2017-12-31] MEDS: Sennosides 8.6 MG Tab PO SCH (09:28)
[2017-12-31] MEDS: Metoprolol Tartrate 25 MG Tab PO SCH ×2 (09:28→20:09)
[2017-12-31] MEDS: Aspirin 81 MG Tab.Chew PO SCH (09:28)
[2017-12-31] MEDS: Cyanocobalamin (Vitamin B12) 1,000 MCG Tab PO SCH (09:28)
[2017-12-31] MEDS: Enoxaparin 40 MG/0.4 ML Syringe SUBCUT SCH (09:28)
[2017-12-31] MEDS: Sodium Chloride 0.9% 1,000 ML IV SCH (09:47)
[2017-12-31] MEDS ORDERED: Azithromycin 250 MG in Sodium Chloride 0.9% 250 ML IV SCH (11:00)
[2017-12-31] MEDS: Azithromycin 500 MG in Sodium Chloride 0.9% 250 ML IV SCH (11:48)
[2017-12-31] MEDS: Linezolid 600 MG in Premix Bag 1 BAG IV SCH ×2 (12:56→23:18)
[2017-12-31] MEDS: guaiFENesin 600 MG Tab.ER PO SCH (20:09)
[2017-12-31] MEDS: Benztropine 1 MG Tab PO SCH (20:11)
[2017-12-31] MEDS ORDERED: LORazepam 2 MG/ML SDV IVPUSH PRN (21:22)
[2018-01-01] MEDS: cefTRIAXone 1 GM in Sodium Chloride 0.9% 100 ML IV SCH (00:29)
[2018-01-01] MEDS: methylPREDNISolone Sodium Succinate 40 MG/1 ML SDV IVPUSH SCH ×3 (03:29→20:41)
[2018-01-01] MEDS: Pantoprazole 40 MG Tab.CR PO SCH (06:24)
--- NOTE | 2018-01-01 06:25 | PCM.PN ---
- General Info Date of Service: 01/01/18 Admission Dx/Problem (Free Text): Admission Diagnosis/Problem Admission Diagnosis/Problem UTI, Urinary tract infectious disease Subjective Update: In to see Muna. She is doing very well today. Nursing reports she had a restless night, however she did wear her BIPAP all night. Her CO2 yesterday for her ABG was 67.1 which is greatly improved. She is able to carry on a conversation today in the AM. Nursing reports some increased confusion as the day has gone on and a few hallucinations. Labs have improved. Awaiting urine cultures. Will continue BiPAP while sleeping/resting and oxygen at other times. O2 has been weaned down slightly. Functional Status: Reports: Pain Controlled, Tolerating Diet, Ambulating, Urinating, Incentive Spirometry. Denies: New Symptoms - Review of Systems General: Reports: No Symptoms, Weakness, Fatigue. Denies: Fever, Malaise HEENT: Reports: No Symptoms. Denies: Sore Throat Pulmonary: Reports: No Symptoms. Denies: Shortness of Breath, Cough, Sputum, Wheezing Cardiovascular: Reports: No Symptoms, Dyspnea on Exertion. Denies: Chest Pain, Edema Gastrointestinal: Reports: Constipation. Denies: Abdominal Pain, Diarrhea, Nausea, Vomiting Genitourinary: Reports: No Symptoms Musculoskeletal: Reports: No Symptoms Skin: Reports: No Symptoms Neurological: Reports: Confusion, Weakness. Denies: Numbness, Pre-Existing Deficit, Tingling, Trouble Speaking, Gait Disturbance Psychiatric: Reports: Confusion, Hallucinations, Other (Upset about wearing BiPAP mask ) - Patient Data Vitals - Most Recent: Last Vital Signs Temp 97.5 F 01/01/18 03:30 Pulse 99 01/01/18 04:00 Resp 29 H 01/01/18 03:30 BP 150/71 H 01/01/18 03:30 Pulse Ox 92 L 01/01/18 04:30 Weight - Most Recent: 142 lb 3.2 oz I&O - Last 24 Hours: Intake & Output 12/31/17 12/31/17 01/01/18 14:59 22:59 06:59 Intake Total 2590 627 Output Total 250 700 Balance -250 2590 -73 Lab Results Last 24 Hours: Laboratory Results - last 24 hr 12/31/17 12/31/17 12/31/17 Range/Units 07:30 07:30 17:49 WBC 4.09 (3.98-10.04) K/mm3 RBC 4.19 (3.98-5.22) M/mm3 Hgb 11.8 (11.2-15.7) gm/L Hct 39.5 (34.1-44.9) % MCV 94.3 (79.4-94.8) fl MCH 28.2 (25.6-32.2) pg MCHC 29.9 L (32.2-35.5) g/dl RDW Std Deviation 45.1 (36.4-46.3) fL Plt Count 195 (182-369) K/mm3 MPV 10.6 (9.4-12.3) fl Neut % (Auto) 88.5 H (34.0-71.1) % Lymph % (Auto) 7.6 L (19.3-51.7) % [place] % (Auto) 3.7 L (4.7-12.5) % Eos % (Auto) 0 L (0.7-5.8) Baso % (Auto) 0.0 L (0.1-1.2) % Neut # (Auto) 3.62 (1.56-6.13) K/mm3 Lymph # (Auto) 0.31 L (1.18-3.74) K/mm3 [place] # (Auto) 0.15 L (0.24-0.36) K/mm3 Eos # (Auto) 0.00 L (0.04-0.36) K/mm3 Baso # (Auto) 0.00 L (0.01-0.08) K/mm3 Manual Slide Review Abnormal smear Puncture Site Lt radial ABG pH 7.33 L (7.35-7.45) ABG pCO2 67.1 H (35.0-45.0) mmHg ABG pO2 68.0 L (80.0-100.0) mmHg ABG HCO3 34.6 H (22.0-26.0) meq/L ABG O2 Saturation 92.7 L (96.0-97.0) % ABG Base Excess 7.5 H (-2-2.0) Alexander Test Positive A-a Gradient 53 mmHg O2 Delivery Device Nasal cannula Oxygen Flow Rate 3.0 FiO2 32.00 (21.00-100.00) % Sodium 143 (136-145) mEq/L Potassium 4.3 (3.5-5.1) mEq/L Chloride 103 (98-107) mEq/L Carbon Dioxide 35 H (21-32) mEq/L Anion Gap 9.3 (5-15) BUN 16 (7-18) mg/dL Creatinine 0.8 (0.55-1.02) mg/dL Est Cr Clr Drug Dosing 57.57 mL/min Estimated GFR (MDRD) > 60 (>60) mL/min BUN/Creatinine Ratio 20.0 H (14-18) Glucose 134 H (83-115) mg/dL Calcium 9.6 (8.5-10.1) mg/dL C-Reactive Protein 21.6 H* (<1.0) mg/dL Javed Results Last 24 Hours: Microbiology 12/30/17 01:55 Aerobic Blood Culture - Preliminary Blood - Venous NO GROWTH AFTER 2 DAYS Anaerobic Blood Culture - Preliminary NO GROWTH AFTER 2 DAYS 12/30/17 02:05 Aerobic Blood Culture - Preliminary Blood - Venous - Lab Draw NO GROWTH AFTER 2 DAYS Anaerobic Blood Culture - Preliminary NO GROWTH AFTER 2 DAYS 12/30/17 07:00 Urine Culture - Preliminary Urine, Quick Cath (In-Out) Gram Positive Cocci 12/30/17 09:00 Gram Stain - Final Sputum - Expectorated Sputum Culture - Preliminary Med Orders - Current: Current Medications Acetaminophen (Tylenol) 650 mg PO Q4H PRN PRN Reason: Pain (Mild 1-3)/fever Albuterol/Ipratropium (Duoneb 3.0-0.5 Mg/3 Ml) 3 ml NEB Q4H PRN PRN Reason: Shortness Of Breath/wheezing Last Admin: 12/31/17 13:44 Dose: 3 ml Albuterol/Ipratropium (Duoneb 3.0-0.5 Mg/3 Ml) 3 ml NEB BID MAREK Last Admin: 12/31/17 20:40 Dose: 3 ml Aspirin (Aspirin) 81 mg PO DAILY MAREK Last Admin: 12/31/17 09:28 Dose: 81 mg Benztropine Mesylate (Cogentin) 1 mg PO BEDTIME MAREK Last Admin: 12/31/17 20:11 Dose: 1 mg Bisacodyl (Dulcolax) 5 mg PO DAILY PRN PRN Reason: Constipation Cyanocobalamin (Vitamin B12) 1,000 mcg PO DAILY [facility] Last Admin: 12/31/17 09:28 Dose: 1,000 mcg Docusate Sodium (Colace) 100 mg PO BID PRN PRN Reason: Constipation Enoxaparin Sodium (Lovenox) 40 mg SUBCUT DAILY [facility] Last Admin: 12/31/17 09:28 Dose: 40 mg Guaifenesin (Mucinex) 1,200 mg PO BID [facility] Last Admin: 12/31/17 20:09 Dose: 1,200 mg Hydralazine HCl (Apresoline) 10 mg IVPUSH Q6H PRN PRN Reason: Hypertension Last Admin: 01/01/18 00:24 Dose: 10 mg Ceftriaxone Sodium 1 gm/ (Sodium Chloride) 100 mls @ 200 mls/hr IV Q24H [facility] Last Admin: 01/01/18 00:29 Dose: 200 mls/hr Azithromycin 500 mg/ Sodium (Chloride) 250 mls @ 250 mls/hr IV Q24H [facility] Last Admin: 12/31/17 11:48 Dose: 250 mls/hr Linezolid 600 mg/ Premix 300 mls @ 300 mls/hr IV Q12H [facility] Last Admin: 12/31/17 23:18 Dose: 300 mls/hr Lorazepam (Ativan) 0.5 mg PO BID PRN PRN Reason: Anxiety Last Admin: 12/31/17 20:56 Dose: 0.5 mg Lorazepam (Ativan) 0.5 mg IVPUSH Q6H PRN PRN Reason: Anxiety/Agitation Magnesium Sulfate (Pharmacy To Dose - Magnesium Replacement) 0 dose .XX ASDIRECTED PRN PRN Reason: RX TO WATCH MAG LEVELS Methylprednisolone Sodium Succinate (Solu-Medrol) 60 mg IVPUSH Q8H [facility] Last Admin: 01/01/18 03:29 Dose: 60 mg Metoprolol Tartrate (Lopressor) 12.5 mg PO BID [facility] Last Admin: 12/31/17 20:09 Dose: 12.5 mg Metoprolol Tartrate (Lopressor) 5 mg IVPUSH Q4H PRN PRN Reason: Tachycardia Ondansetron HCl (Zofran Odt) 4 mg PO Q6H PRN PRN Reason: nausea, able to take PO Ondansetron HCl (Zofran) 4 mg IV Q6H PRN PRN Reason: Nausea/Vomiting Pantoprazole Sodium (Protonix) 40 mg PO DAILY@0700 [facility] Last Admin: 01/01/18 06:24 Dose: 40 mg Polyethylene Glycol (Miralax) 17 gm PO DAILY PRN PRN Reason: Constipation Potassium Chloride (Pharmacy To Dose - Potassium Replacement) 0 dose .XX ASDIRECTED PRN PRN Reason: RX TO WATCH K LEVELS Saccharomyces Boulardii (Florastor) 250 mg PO DAILY [facility] Senna (Senna) 8.6 mg PO DAILY [facility] Last Admin: 12/31/17 09:28 Dose: 8.6 mg Senna/Docusate Sodium (Senna Plus) 1 tab PO BID PRN PRN Reason: Constipation Senna/Docusate Sodium (Senna Plus) 1 tab PO DAILY [facility] Last Admin: 12/31/17 09:28 Dose: 1 tab Trifluoperazine HCl (Trifluoperazine) 20 mg PO BEDTIME [facility] Last Admin: 12/31/17 20:10 Dose: 20 mg Discontinued Medications Albuterol/Ipratropium (Duoneb 3.0-0.5 Mg/3 Ml) 3 ml NEB ONETIME ONE Stop: 12/30/17 04:16 Last Admin: 12/30/17 04:33 Dose: 3 ml Benztropine Mesylate (Cogentin) 1 mg PO DAILY [facility] Last Admin: 12/30/17 09:50 Dose: Not Given Ceftriaxone Sodium 1 gm/ (Sodium Chloride) 100 mls @ 200 mls/hr IV ONETIME ONE Stop: 12/30/17 02:10 Last Admin: 12/30/17 02:16 Dose: 200 mls/hr Sodium Chloride (Normal Saline) 1,000 mls @ 100 mls/hr IV ASDIRECTED [facility] Last Admin: 12/31/17 09:47 Dose: 100 mls/hr Azithromycin 250 mg/ Sodium (Chloride) 250 mls @ 250 mls/hr IV Q24H [facility] Lorazepam (Ativan) 0.5 mg IVPUSH Q6H PRN PRN Reason: Agitation Last Admin: 12/31/17 19:43 Dose: 0.5 mg Methylprednisolone Sodium Succinate (Solu-Medrol) 60 mg IVPUSH Q12H [facility] Last Admin: 12/31/17 04:19 Dose: 60 mg Morphine Sulfate (Morphine) 1 mg IVPUSH ONETIME ONE Stop: 12/30/17 12:23 Last Admin: 12/30/17 13:53 Dose: 1 mg Non-Formulary Medication (Cranberry [Cranberry]) 400 mg PO BID MAREK - Exam Quality Assessment: Supplemental Oxygen, DVT Prophylaxis General: Alert, Oriented, Cooperative, No Acute Distress HEENT: Pupils Equal, Pupils Reactive, EOMI, Mucous Membr. Moist/[place] Neck: Supple, Trachea Midline, No JVD Lungs: Normal Respiratory Effort, Decreased Breath Sounds, Rhonchi, Wheezing ( mild ), Other (minimal air movement ) Cardiovascular: Regular Rhythm, Tachycardia GI/Abdominal Exam: Normal Bowel Sounds, Soft, Non-Tender, No Organomegaly, No Distention, No Abnormal Bruit, No Mass, Pelvis Stable (Female) Exam: Deferred Back Exam: Normal Inspection, Full Range of Motion Extremities: Normal Inspection, Normal Range of Motion, Non-Tender, Normal Capillary Refill, Pedal Edema (mild ) Peripheral Pulses: 2+: Dorsalis Pedis (L), Dorsalis Pedis (R), 3+: Radial (L), Radial (R) Skin: Warm, Dry, Intact Neurological: No New Focal Deficit Psy/Mental Status: Alert - Problem List & Annotations (1) Acute exacerbation of chronic obstructive pulmonary disease (COPD) SNOMED Code(s): 316800668 Code(s): J44.1 - CHRONIC OBSTRUCTIVE PULMONARY DISEASE W (ACUTE) EXACERBATION Status: Acute Current Visit: No (2) UTI (urinary tract infection) SNOMED Code(s): 61057063 Code(s): N39.0 - URINARY TRACT INFECTION, SITE NOT SPECIFIED Status: Acute Current Visit: No (3) Acute hypercapnic respiratory failure SNOMED Code(s): 055553832 Code(s): J96.02 - ACUTE RESPIRATORY FAILURE WITH HYPERCAPNIA Status: Acute Priority: High Current Visit: Yes (4) Respiratory acidosis SNOMED Code(s): 68823801 Code(s): E87.2 - ACIDOSIS Status: Acute Priority: High Current Visit: Yes (5) Schizophrenia SNOMED Code(s): 17106334 Code(s): F20.9 - SCHIZOPHRENIA, UNSPECIFIED Status: Chronic Priority: Medium Current Visit: No Qualifiers: Schizophrenia type: unspecified Qualified Code(s): F20.9 - Schizophrenia, unspecified (6) GERD (gastroesophageal reflux disease) SNOMED Code(s): 064113336 Code(s): K21.9 - GASTRO-ESOPHAGEAL REFLUX DISEASE WITHOUT ESOPHAGITIS Status: Chronic Priority: Medium Current Visit: No Qualifiers: Esophagitis presence: esophagitis presence not specified Qualified Code(s) : K21.9 - Gastro-esophageal reflux disease without esophagitis (7) Chronic back pain SNOMED Code(s): 841910340 Code(s): M54.9 - DORSALGIA, UNSPECIFIED; G89.29 - OTHER CHRONIC PAIN Status : Chronic Priority: Medium Current Visit: No Qualifiers: Back pain location: back pain in unspecified location Back pain laterality : unspecified Qualified Code(s): M54.9 - Dorsalgia, unspecified; G89.29 - Other chronic pain (8) Anxiety SNOMED Code(s): 66578536 Code(s): F41.9 - ANXIETY DISORDER, UNSPECIFIED Status: Chronic Priority: Medium Current Visit: Yes (9) HTN (hypertension) SNOMED Code(s): 29192295 Code(s): I10 - ESSENTIAL (PRIMARY) HYPERTENSION Status: Chronic Priority : Medium Current Visit: No Qualifiers: Hypertension type: unspecified Qualified Code(s): I10 - Essential (primary ) hypertension (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) SNOMED Code(s): 72627029192995592 Code(s): Z86.19 - PERSONAL HISTORY OF OTHER INFECTIOUS AND PARASITIC DISEASES Status: Chronic Priority: Medium Current Visit: No - Problem List Review Problem List Initiated/Reviewed/Updated: Yes - My Orders Last 24 Hours: My Active Orders 12/31/17 09:00 Enoxaparin [Lovenox] 40 mg SUBCUT DAILY 12/31/17 09:51 Isolation [COMM] Routine 12/31/17 11:00 Azithromycin [Zithromax] 500 mg Sodium Chloride 0.9% [Normal Saline] 250 ml IV Q24H 12/31/17 11:30 Linezolid [Zyvox] 600 mg Premix Bag 1 bag IV Q12H 12/31/17 12:00 methylPREDNISolone Sod Succ [Solu-MEDROL] 60 mg IVPUSH Q8H 12/31/17 21:00 guaiFENesin [Mucinex] 1,200 mg PO BID 01/01/18 05:11 BASIC METABOLIC PANEL,BMP [CHEM] AM CBC WITH AUTO DIFF [HEME] AM CRP [C-REACTIVE PROTEIN] [CHEM] AM MAGNESIUM [CHEM] AM 01/01/18 09:00 Saccharomyces Boulardii [Florastor] 250 mg PO DAILY 01/02/18 05:11 BASIC METABOLIC PANEL,BMP [CHEM] AM CBC WITH AUTO DIFF [HEME] AM CRP [C-REACTIVE PROTEIN] [CHEM] AM MAGNESIUM [CHEM] AM 01/03/18 05:11 BASIC METABOLIC PANEL,BMP [CHEM] AM CBC WITH AUTO DIFF [HEME] AM CRP [C-REACTIVE PROTEIN] [CHEM] AM MAGNESIUM [CHEM] AM 01/04/18 05:11 MAGNESIUM [CHEM] AM - Plan Plan:: I/P: Acute: Urinary Tract Infection -Family reports patient has been having urinary stones recently and seen urology -Hx/o UTIs with changes in mentation -Reportedly told daughter she thinks she may have a UTI a day or two before ED visit -UA in ED: Cloudy, 1+ protein, 1+ ketones, trace intact blood, 3+ leuk esterase, >100 WBC, Moderate bacteria -Urine culture - gram positive cocci -History of VRE a few months ago -Lactic acid 0.5 -No leukocytosis, CRP 15.0-->21.6-->9 -Blood cultures negative after 48 hours -Started on 1gm Rocephin in ED - based on c/s results so far, switch to linezolide -IV fluids as ordered Hypercapnic respiratory failure, improved -Reportedly on 3L O2 normally -Hx/o COPD -Likely worsened by above - daughter reports similar episodes with prior UTIs -Initial ABG: pH 7.26, pCO2 102.1, pO2 83.0, HCO3 43.7, O2 saturation 94.4 -BIPAP started -0.5mg ativan for anxiety from mask -Repeat ABG: pH 7.31, pCO2 85.6, pO2 74, HCO3 42.0, O2 saturation 92.6 -Mentation improved with BIPAP -Monitor ABGs - repeat tonight Exacerbation of COPD -Productive cough -Sputum culture sent - negative -Start azithromycin -CXR shows eczematous change -Solu-medrol 60mg Q12HR for now-> increase to Q8HR -IS once off BIPAP -Mucinex -Home nebulizer schedule and add PRN -Monitor and replete magnesium -RT consult AMS, improved -Much more confused than normal - daughter reports patient can usually carry on a conversation -Likely 2/2 above -Mentation improving with BIPAP -Treat underlying cause Chronic: Impaired vision hypertension recurrent bronchitis COPD cholelithiasis GERD hemorrhoids chronic back pain anxiety schizophrenia Hx/o VRE Plan: Admit to medical floor -> upgrade to ICU->downgraded to medical floor Other orders as indicated above PT/OT SW for discharge planning Routine AM labs Contact precautions DVT prophylaxis: Lovenox GI prophylaxis: Home PPI Code status: DNR/DNI; PCP: Dr. Abdullahi
[2018-01-01] MEDS: Saccharomyces Boulardii (Probiotic) 250 MG Cap PO SCH (08:18)
[2018-01-01] MEDS: Cyanocobalamin (Vitamin B12) 1,000 MCG Tab PO SCH (08:18)
[2018-01-01] MEDS: Aspirin 81 MG Tab.Chew PO SCH (08:18)
[2018-01-01] MEDS: Bisacodyl 5 MG Tab PO PRN (08:18)
[2018-01-01] MEDS: Metoprolol Tartrate 25 MG Tab PO SCH ×2 (08:18→20:46)
[2018-01-01] MEDS: guaiFENesin 600 MG Tab.ER PO SCH ×2 (08:19→20:42)
[2018-01-01] MEDS: Enoxaparin 40 MG/0.4 ML Syringe SUBCUT SCH (08:19)
[2018-01-01] MEDS: Sennosides 8.6 MG Tab PO SCH (08:28)
[2018-01-01] MEDS: Albuterol/Ipratropium 3.0-0.5 MG/3 ML Neb Soln NEB SCH ×2 (09:00→20:31)
[2018-01-01] MEDS: Azithromycin 500 MG in Sodium Chloride 0.9% 250 ML IV SCH (10:20)
[2018-01-01] MEDS: hydrALAZINE 20 MG/ML SDV IVPUSH PRN ×2 (10:38→17:23)
[2018-01-01] MEDS: LORazepam 0.5 MG Tab PO PRN (10:42)
[2018-01-01] MEDS: Linezolid 600 MG in Premix Bag 1 BAG IV SCH ×2 (10:50→23:36)
[2018-01-01] MEDS: Albuterol/Ipratropium 3.0-0.5 MG/3 ML Neb Soln NEB PRN (13:12)
[2018-01-01] MEDS ORDERED: Prochlorperazine 10 MG/2 ML SDV IM ONE (18:44)
[2018-01-01] MEDS: Benztropine 1 MG Tab PO SCH (20:41)
[2018-01-02] MEDS: Acetaminophen 325 MG Tab PO PRN ×2 (00:11→15:10)
[2018-01-02] MEDS: Albuterol/Ipratropium 3.0-0.5 MG/3 ML Neb Soln NEB PRN ×2 (00:31→13:57)
[2018-01-02] MEDS: Prochlorperazine 10 MG/2 ML SDV IM PRN ×2 (01:34→12:03)
[2018-01-02] MEDS: methylPREDNISolone Sodium Succinate 40 MG/1 ML SDV IVPUSH SCH ×3 (04:48→20:44)
--- NOTE | 2018-01-02 06:30 | PCM.PN ---
- General Info Date of Service: 01/02/18 Admission Dx/Problem (Free Text): Admission Diagnosis/Problem Admission Diagnosis/Problem UTI, Urinary tract infectious disease Subjective Update: In to see Muna. She is lying in bed. She looks quite distraught. She has been hallucinating and has been telling nursing she is sad and scared she is going to . Multiple nursing notes have been added documenting these events. Compazine was added last night by Dr. Bran with good results. She has been refusing her BiPAP mask all night. Dr. Braun was contacted via phone and recommended adding 5mg Trifluoperazine in the AM for 3 days and then increasing to 10mg Trifluoperazine in the AM after that. She also recommended Haldol 5mg for acute pychosis. Culture results returned positive for VRE. Sputum culture was positive for H. Flu. Pharmacy was consulted and patient has been given rocephin already. Linazolid does also have some coverage for this as well. 12- lead EKG is obtained which shows normal QT interval. ABG shows better pCO2 in the low 50's. Medically she continues to improve however from a psychiatric standpoint she has gotten worse. Family is at bedside, including POA, and is updated on current status. residential support worker brought in as well. Discussed possibility of future psychiatric hospitalization as this was suggested by Dr. Braun. Will continued current treatment with new psychiatric medications. Functional Status: Reports: Pain Controlled, Tolerating Diet, Ambulating, Urinating, New Symptoms (worsening psychosis ), Incentive Spirometry - Review of Systems General: Reports: Fatigue, Malaise. Denies: Fever, Weakness HEENT: Reports: No Symptoms. Denies: Sore Throat Pulmonary: Reports: Shortness of Breath, Cough. Denies: Sputum, Wheezing Cardiovascular: Reports: Dyspnea on Exertion, Edema. Denies: Chest Pain, Palpitations, Lightheadedness Gastrointestinal: Reports: No Symptoms. Denies: Abdominal Pain, Constipation, Diarrhea, Nausea, Vomiting Genitourinary: Reports: No Symptoms Musculoskeletal: Reports: No Symptoms Skin: Reports: No Symptoms Neurological: Reports: Confusion, Headache, Difficulty Walking Psychiatric: Reports: Confusion, Mood Lability, Anxiety, Agitation, Hallucinations. Denies: Homicidal Ideation - Patient Data Vitals - Most Recent: Last Vital Signs Temp 96.7 F 01/02/18 04:00 Pulse 110 H 01/01/18 20:46 Resp 24 H 01/02/18 04:00 BP 145/59 H 01/02/18 04:00 Pulse Ox 94 L 01/02/18 04:00 Weight - Most Recent: 145 lb 3.2 oz I&O - Last 24 Hours: Intake & Output 01/01/18 01/01/18 01/02/18 14:59 22:59 06:59 Intake Total 535 500 800 Output Total 600 300 700 Balance -65 200 100 Lab Results Last 24 Hours: Laboratory Results - last 24 hr 01/01/18 01/01/18 01/01/18 Range/Units 06:19 06:19 13:40 WBC 9.90 (3.98-10.04) K/mm3 RBC 4.18 (3.98-5.22) M/mm3 Hgb 12.0 (11.2-15.7) gm/L Hct 38.1 (34.1-44.9) % MCV 91.1 (79.4-94.8) fl MCH 28.7 (25.6-32.2) pg MCHC 31.5 L (32.2-35.5) g/dl RDW Std Deviation 44.7 (36.4-46.3) fL Plt Count 250 (182-369) K/mm3 MPV 10.5 (9.4-12.3) fl Neut % (Auto) 91.7 H (34.0-71.1) % Lymph % (Auto) 3.8 L (19.3-51.7) % Scurry % (Auto) 4.2 L (4.7-12.5) % Eos % (Auto) 0 L (0.7-5.8) Baso % (Auto) 0.1 (0.1-1.2) % Neut # (Auto) 9.07 H (1.56-6.13) K/mm3 Lymph # (Auto) 0.38 L (1.18-3.74) K/mm3 Scurry # (Auto) 0.42 H (0.24-0.36) K/mm3 Eos # (Auto) 0.00 L (0.04-0.36) K/mm3 Baso # (Auto) 0.01 (0.01-0.08) K/mm3 Manual Slide Review Abnormal smear Puncture Site Lt radial ABG pH 7.36 (7.35-7.45) ABG pCO2 65.6 H (35.0-45.0) mmHg ABG pO2 91.0 (80.0-100.0) mmHg ABG HCO3 35.9 H (22.0-26.0) meq/L ABG O2 Saturation 97.1 H (96.0-97.0) % ABG Base Excess 8.8 H (-2-2.0) Alexander Test Positive A-a Gradient 32 mmHg O2 Delivery Device Nasal cannula Oxygen Flow Rate 3.0 FiO2 32.00 (21.00-100.00) % Sodium 143 (136-145) mEq/L Potassium 3.7 (3.5-5.1) mEq/L Chloride 103 (98-107) mEq/L Carbon Dioxide 37 H (21-32) mEq/L Anion Gap 6.7 (5-15) BUN 16 (7-18) mg/dL Creatinine 0.8 (0.55-1.02) mg/dL Est Cr Clr Drug Dosing 58.06 mL/min Estimated GFR (MDRD) > 60 (>60) mL/min BUN/Creatinine Ratio 20.0 H (14-18) Glucose 140 H (83-115) mg/dL Calcium 10.2 H (8.5-10.1) mg/dL Magnesium 1.9 (1.8-2.4) mg/dl C-Reactive Protein 9.0 H* (<1.0) mg/dL 01/02/18 01/02/18 Range/Units 05:29 05:29 WBC 8.84 (3.98-10.04) K/mm3 RBC 3.78 L (3.98-5.22) M/mm3 Hgb 10.6 L (11.2-15.7) gm/L Hct 34.9 (34.1-44.9) % MCV 92.3 (79.4-94.8) fl MCH 28.0 (25.6-32.2) pg MCHC 30.4 L (32.2-35.5) g/dl RDW Std Deviation 45.6 (36.4-46.3) fL Plt Count 261 (182-369) K/mm3 MPV 10.2 (9.4-12.3) fl Neut % (Auto) 86.7 H (34.0-71.1) % Lymph % (Auto) 5.5 L (19.3-51.7) % Scurry % (Auto) 7.7 (4.7-12.5) % Eos % (Auto) 0 L (0.7-5.8) Baso % (Auto) 0.0 L (0.1-1.2) % Neut # (Auto) 7.66 H (1.56-6.13) K/mm3 Lymph # (Auto) 0.49 L (1.18-3.74) K/mm3 Scurry # (Auto) 0.68 H (0.24-0.36) K/mm3 Eos # (Auto) 0.00 L (0.04-0.36) K/mm3 Baso # (Auto) 0.00 L (0.01-0.08) K/mm3 Manual Slide Review Puncture Site ABG pH (7.35-7.45) ABG pCO2 (35.0-45.0) mmHg ABG pO2 (80.0-100.0) mmHg ABG HCO3 (22.0-26.0) meq/L ABG O2 Saturation (96.0-97.0) % ABG Base Excess (-2-2.0) Alexander Test A-a Gradient mmHg O2 Delivery Device Oxygen Flow Rate FiO2 (21.00-100.00) % Sodium 142 (136-145) mEq/L Potassium 3.6 (3.5-5.1) mEq/L Chloride 103 (98-107) mEq/L Carbon Dioxide 39 H (21-32) mEq/L Anion Gap 3.6 L (5-15) BUN 17 (7-18) mg/dL Creatinine 0.8 (0.55-1.02) mg/dL Est Cr Clr Drug Dosing 59.29 mL/min Estimated GFR (MDRD) > 60 (>60) mL/min BUN/Creatinine Ratio 21.3 H (14-18) Glucose 164 H (83-115) mg/dL Calcium 9.8 (8.5-10.1) mg/dL Magnesium 1.9 (1.8-2.4) mg/dl C-Reactive Protein 3.2 H* (<1.0) mg/dL Javed Results Last 24 Hours: Microbiology 12/30/17 01:55 Aerobic Blood Culture - Preliminary Blood - Venous NO GROWTH AFTER 3 DAYS Anaerobic Blood Culture - Preliminary NO GROWTH AFTER 3 DAYS 12/30/17 02:05 Aerobic Blood Culture - Preliminary Blood - Venous - Lab Draw NO GROWTH AFTER 3 DAYS Anaerobic Blood Culture - Preliminary NO GROWTH AFTER 3 DAYS 12/30/17 07:00 Urine Culture - Preliminary Urine, Quick Cath (In-Out) Gram Positive Cocci 12/30/17 09:00 Gram Stain - Final Sputum - Expectorated Sputum Culture - Preliminary Med Orders - Current: Current Medications Acetaminophen (Tylenol) 650 mg PO Q4H PRN PRN Reason: Pain (Mild 1-3)/fever Last Admin: 01/02/18 00:11 Dose: 650 mg Albuterol/Ipratropium (Duoneb 3.0-0.5 Mg/3 Ml) 3 ml NEB Q4H PRN PRN Reason: Shortness Of Breath/wheezing Last Admin: 01/02/18 00:31 Dose: 3 ml Albuterol/Ipratropium (Duoneb 3.0-0.5 Mg/3 Ml) 3 ml NEB BID [facility] Last Admin: 01/01/18 20:31 Dose: 3 ml Aspirin (Aspirin) 81 mg PO DAILY [facility] Last Admin: 01/01/18 08:18 Dose: 81 mg Benztropine Mesylate (Cogentin) 1 mg PO BEDTIME [facility] Last Admin: 01/01/18 20:41 Dose: 1 mg Bisacodyl (Dulcolax) 5 mg PO DAILY PRN PRN Reason: Constipation Last Admin: 01/01/18 08:18 Dose: 5 mg Cyanocobalamin (Vitamin B12) 1,000 mcg PO DAILY [facility] Last Admin: 01/01/18 08:18 Dose: 1,000 mcg Docusate Sodium (Colace) 100 mg PO BID PRN PRN Reason: Constipation Enoxaparin Sodium (Lovenox) 40 mg SUBCUT DAILY [facility] Last Admin: 01/01/18 08:19 Dose: 40 mg Guaifenesin (Mucinex) 1,200 mg PO BID [facility] Last Admin: 01/01/18 20:42 Dose: 1,200 mg Hydralazine HCl (Apresoline) 20 mg IVPUSH Q4H PRN PRN Reason: Hypertension Last Admin: 01/01/18 17:23 Dose: 20 mg Azithromycin 500 mg/ Sodium (Chloride) 250 mls @ 250 mls/hr IV Q24H [facility] Last Admin: 01/01/18 10:20 Dose: 250 mls/hr Linezolid 600 mg/ Premix 300 mls @ 300 mls/hr IV Q12H [facility] Last Admin: 01/01/18 23:36 Dose: 300 mls/hr Lorazepam (Ativan) 0.5 mg PO BID PRN PRN Reason: Anxiety Last Admin: 01/01/18 10:42 Dose: 0.5 mg Lorazepam (Ativan) 0.5 mg IVPUSH Q6H PRN PRN Reason: Anxiety/Agitation Last Admin: 01/01/18 13:07 Dose: 0.5 mg Magnesium Sulfate (Pharmacy To Dose - Magnesium Replacement) 0 dose .XX ASDIRECTED PRN PRN Reason: RX TO WATCH MAG LEVELS Methylprednisolone Sodium Succinate (Solu-Medrol) 60 mg IVPUSH Q8H [facility] Last Admin: 01/02/18 04:48 Dose: 60 mg Metoprolol Tartrate (Lopressor) 12.5 mg PO BID [facility] Last Admin: 01/01/18 20:46 Dose: 12.5 mg Metoprolol Tartrate (Lopressor) 5 mg IVPUSH Q4H PRN PRN Reason: Tachycardia Ondansetron HCl (Zofran Odt) 4 mg PO Q6H PRN PRN Reason: nausea, able to take PO Ondansetron HCl (Zofran) 4 mg IV Q6H PRN PRN Reason: Nausea/Vomiting Pantoprazole Sodium (Protonix) 40 mg PO DAILY@0700 [facility] Last Admin: 01/01/18 06:24 Dose: 40 mg Polyethylene Glycol (Miralax) 17 gm PO DAILY PRN PRN Reason: Constipation Potassium Chloride (Pharmacy To Dose - Potassium Replacement) 0 dose .XX ASDIRECTED PRN PRN Reason: RX TO WATCH K LEVELS Prochlorperazine Edisylate (Compazine) 5 mg IM Q6H PRN PRN Reason: Other Last Admin: 01/02/18 01:34 Dose: 5 mg Saccharomyces Boulardii (Florastor) 250 mg PO DAILY [facility] Last Admin: 01/01/18 08:18 Dose: 250 mg Senna (Senna) 8.6 mg PO DAILY [facility] Last Admin: 01/01/18 08:28 Dose: 8.6 mg Senna/Docusate Sodium (Senna Plus) 1 tab PO BID PRN PRN Reason: Constipation Senna/Docusate Sodium (Senna Plus) 1 tab PO DAILY [facility] Last Admin: 01/01/18 08:18 Dose: 1 tab Trifluoperazine HCl (Trifluoperazine) 20 mg PO BEDTIME [facility] Last Admin: 01/01/18 20:41 Dose: 20 mg Discontinued Medications Albuterol/Ipratropium (Duoneb 3.0-0.5 Mg/3 Ml) 3 ml NEB ONETIME ONE Stop: 12/30/17 04:16 Last Admin: 12/30/17 04:33 Dose: 3 ml Benztropine Mesylate (Cogentin) 1 mg PO DAILY [facility] Last Admin: 12/30/17 09:50 Dose: Not Given Hydralazine HCl (Apresoline) 10 mg IVPUSH Q6H PRN PRN Reason: Hypertension Last Admin: 01/01/18 00:24 Dose: 10 mg Ceftriaxone Sodium 1 gm/ (Sodium Chloride) 100 mls @ 200 mls/hr IV ONETIME ONE Stop: 12/30/17 02:10 Last Admin: 12/30/17 02:16 Dose: 200 mls/hr Ceftriaxone Sodium 1 gm/ (Sodium Chloride) 100 mls @ 200 mls/hr IV Q24H [facility] Last Admin: 01/01/18 00:29 Dose: 200 mls/hr Sodium Chloride (Normal Saline) 1,000 mls @ 100 mls/hr IV ASDIRECTED [facility] Last Admin: 12/31/17 09:47 Dose: 100 mls/hr Azithromycin 250 mg/ Sodium (Chloride) 250 mls @ 250 mls/hr IV Q24H [facility] Lorazepam (Ativan) 0.5 mg IVPUSH Q6H PRN PRN Reason: Agitation Last Admin: 12/31/17 19:43 Dose: 0.5 mg Methylprednisolone Sodium Succinate (Solu-Medrol) 60 mg IVPUSH Q12H [facility] Last Admin: 12/31/17 04:19 Dose: 60 mg Morphine Sulfate (Morphine) 1 mg IVPUSH ONETIME ONE Stop: 12/30/17 12:23 Last Admin: 12/30/17 13:53 Dose: 1 mg Non-Formulary Medication (Cranberry [Cranberry]) 400 mg PO BID [facility] Prochlorperazine Edisylate (Compazine) 10 mg IM ONETIME ONE Stop: 01/01/18 18:45 Last Admin: 01/01/18 19:00 Dose: 10 mg - Exam Quality Assessment: Supplemental Oxygen, DVT Prophylaxis General: Alert, Cooperative, Mild Distress (very anxious ) HEENT: Pupils Equal, Pupils Reactive, EOMI, Mucous Membr. Moist/[place] Neck: Supple, Trachea Midline Lungs: Normal Respiratory Effort, Decreased Breath Sounds, Wheezing (mild ) Cardiovascular: Regular Rate, Regular Rhythm GI/Abdominal Exam: Normal Bowel Sounds, Soft, Non-Tender, No Distention, No Mass , Pelvis Stable (Female) Exam: Deferred Back Exam: Normal Inspection, Full Range of Motion Extremities: Normal Inspection, Normal Range of Motion, Non-Tender, Normal Capillary Refill, Pedal Edema (1-2+) Peripheral Pulses: 3+: Radial (L), Radial (R), Dorsalis Pedis (L), Dorsalis Pedis (R) Skin: Warm, Dry, Intact Neurological: No New Focal Deficit Psy/Mental Status: Alert, Labile Mood, Anxious, Depressed, Agitated, Hallucinations - Problem List & Annotations (1) Acute exacerbation of chronic obstructive pulmonary disease (COPD) SNOMED Code(s): 251710490 Code(s): J44.1 - CHRONIC OBSTRUCTIVE PULMONARY DISEASE W (ACUTE) EXACERBATION Status: Acute Current Visit: No (2) UTI (urinary tract infection) SNOMED Code(s): 74141717 Code(s): N39.0 - URINARY TRACT INFECTION, SITE NOT SPECIFIED Status: Acute Current Visit: No Qualifiers: Urinary tract infection type: site unspecified Hematuria presence: without hematuria Qualified Code(s): N39.0 - Urinary tract infection, site not specified (3) Acute hypercapnic respiratory failure SNOMED Code(s): 624913011 Code(s): J96.02 - ACUTE RESPIRATORY FAILURE WITH HYPERCAPNIA Status: Acute Priority: High Current Visit: Yes (4) Respiratory acidosis SNOMED Code(s): 04669751 Code(s): E87.2 - ACIDOSIS Status: Acute Priority: High Current Visit: Yes (5) Schizophrenia SNOMED Code(s): 28218948 Code(s): F20.9 - SCHIZOPHRENIA, UNSPECIFIED Status: Chronic Priority: High Current Visit: Yes Qualifiers: Schizophrenia type: unspecified Qualified Code(s): F20.9 - Schizophrenia, unspecified (6) GERD (gastroesophageal reflux disease) SNOMED Code(s): 969602585 Code(s): K21.9 - GASTRO-ESOPHAGEAL REFLUX DISEASE WITHOUT ESOPHAGITIS Status: Chronic Priority: Medium Current Visit: No Qualifiers: Esophagitis presence: esophagitis presence not specified Qualified Code(s) : K21.9 - Gastro-esophageal reflux disease without esophagitis (7) Chronic back pain SNOMED Code(s): 201975993 Code(s): M54.9 - DORSALGIA, UNSPECIFIED; G89.29 - OTHER CHRONIC PAIN Status : Chronic Priority: Medium Current Visit: No Qualifiers: Back pain location: back pain in unspecified location Back pain laterality : unspecified Qualified Code(s): M54.9 - Dorsalgia, unspecified; G89.29 - Other chronic pain (8) Anxiety SNOMED Code(s): 82372179 Code(s): F41.9 - ANXIETY DISORDER, UNSPECIFIED Status: Chronic Priority: Medium Current Visit: Yes (9) HTN (hypertension) SNOMED Code(s): 27601079 Code(s): I10 - ESSENTIAL (PRIMARY) HYPERTENSION Status: Chronic Priority : Medium Current Visit: No Qualifiers: Hypertension type: unspecified Qualified Code(s): I10 - Essential (primary ) hypertension (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) SNOMED Code(s): 55726935112767349 Code(s): Z86.19 - PERSONAL HISTORY OF OTHER INFECTIOUS AND PARASITIC DISEASES Status: Chronic Priority: Medium Current Visit: No (11) Acute psychosis SNOMED Code(s): 94845198, 07194279 Code(s): F23 - BRIEF PSYCHOTIC DISORDER Status: Acute Priority: High Current Visit: Yes - Problem List Review Problem List Initiated/Reviewed/Updated: Yes - My Orders Last 24 Hours: My Active Orders 01/01/18 09:00 Saccharomyces Boulardii [Florastor] 250 mg PO DAILY hydrALAZINE [Apresoline] 20 mg IVPUSH Q4H PRN 01/01/18 11:14 Patient Status [ADT] Routine 01/02/18 05:29 CBC WITH AUTO DIFF [HEME] AM 01/02/18 08:00 CXR [Chest 2V] [CR] Routine 01/03/18 05:11 BASIC METABOLIC PANEL,BMP [CHEM] AM CBC WITH AUTO DIFF [HEME] AM CRP [C-REACTIVE PROTEIN] [CHEM] AM MAGNESIUM [CHEM] AM 01/04/18 05:11 MAGNESIUM [CHEM] AM - Plan Plan:: I/P: Acute: Urinary Tract Infection -Family reports patient has been having urinary stones recently and seen urology -Hx/o UTIs with changes in mentation -Reportedly told daughter she thinks she may have a UTI a day or two before ED visit -UA in ED: Cloudy, 1+ protein, 1+ ketones, trace intact blood, 3+ leuk esterase, >100 WBC, Moderate bacteria -Urine culture - VRE -History of VRE a few months ago -Lactic acid 0.5 -No leukocytosis, CRP 15.0-->21.6-->9-->3.2 -Blood cultures negative after 3 days -Started on 1gm Rocephin in ED - based on c/s results so far, switch to linezolide -IV fluids as ordered Hypercapnic respiratory failure, improved -Reportedly on 3L O2 normally -Hx/o COPD -Likely worsened by above - daughter reports similar episodes with prior UTIs -Initial ABG: pH 7.26, pCO2 102.1, pO2 83.0, HCO3 43.7, O2 saturation 94.4 -BIPAP started -0.5mg ativan for anxiety from mask -Repeat ABG: pH 7.31, pCO2 85.6, pO2 74, HCO3 42.0, O2 saturation 92.6 -Mentation improved with BIPAP -Monitor ABGs as needed -Sputum culture: Positive H. Flu; Received rocephin and Linezolide does have some coverage -Refusing BiPAP -ABG improved today: pH7.44, pCO2 50.4, pO2 75, HCO3 33.5, O2 saturation 94.6 Exacerbation of COPD -Productive cough - improved -Sputum culture sent - H. flu weakly positive -Start azithromycin -CXR shows emphysematous change -Solu-medrol 60mg Q12HR for now-> increase to Q8HR -IS once off BIPAP -Mucinex -Home nebulizer schedule and add PRN -Monitor and replete magnesium -RT consult -Repeat CXR: Emphysematous change, nothing acute Acute Psycosis -Much more confused than normal - daughter reports patient can usually carry on a conversation -Likely worsened by above -Much more alert now -Hallucinating, paranoid, and reports we are doing experiments on her -Family reports long-standing history of schizophrenia which is difficult to control at times -Dr. Braun contacted: -Suggests Trifluoperazine 5mg AM in addition to usual PM dose; increase to 10mg in 3 days -Suggests 5mg Haldol PRN for acute psychotic episodes -Discussed possible need for psychiatric hospitalization -Discussed plan of care with family. SW discussed possible need for psychiatric hospitalization. Chronic: Impaired vision hypertension recurrent bronchitis COPD cholelithiasis GERD hemorrhoids chronic back pain anxiety schizophrenia Hx/o VRE Plan: Admit to medical floor -> upgrade to ICU->downgraded to medical floor Other orders as indicated above PT/OT SW for discharge planning Routine AM labs Contact precautions DVT prophylaxis: Lovenox GI prophylaxis: Home PPI Code status: DNR/DNI; PCP: Dr. Abdullahi
[2018-01-02] MEDS: Pantoprazole 40 MG Tab.CR PO SCH (08:08)
[2018-01-02] MEDS: hydrALAZINE 20 MG/ML SDV IVPUSH PRN (08:11)
[2018-01-02] MEDS: Cyanocobalamin (Vitamin B12) 1,000 MCG Tab PO SCH (08:22)
[2018-01-02] MEDS: Metoprolol Tartrate 25 MG Tab PO SCH ×2 (08:22→20:47)
[2018-01-02] MEDS: guaiFENesin 600 MG Tab.ER PO SCH ×2 (08:22→20:45)
[2018-01-02] MEDS: Sennosides 8.6 MG Tab PO SCH (08:23)
[2018-01-02] MEDS: Aspirin 81 MG Tab.Chew PO SCH (08:23)
[2018-01-02] MEDS: Enoxaparin 40 MG/0.4 ML Syringe SUBCUT SCH (08:23)
[2018-01-02] MEDS: Bisacodyl 5 MG Tab PO PRN (08:23)
[2018-01-02] MEDS: Saccharomyces Boulardii (Probiotic) 250 MG Cap PO SCH (08:24)
[2018-01-02] MEDS: Albuterol/Ipratropium 3.0-0.5 MG/3 ML Neb Soln NEB SCH ×2 (08:37→20:04)
--- NOTE | 2018-01-02 10:08 | CR ---
Chest: Two views of the chest were obtained. Comparison: Prior chest x-ray of 12/30/17. Heart does not appear enlarged. Upper mediastinum is slightly widened but appears stable. Lungs are hyperinflated compatible with emphysematous change. Minimal pleural thickening seen within the right lateral costophrenic angle which is believed to represent minimal atelectasis. Bony structures are osteopenic. Degenerative change partially visualized within the right shoulder. Impression: 1. Emphysematous change. Nothing acute is definitely seen on two-view chest x-ray. Diagnostic code #2
[2018-01-02] MEDS: Azithromycin 500 MG in Sodium Chloride 0.9% 250 ML IV SCH (10:37)
[2018-01-02] MEDS: Linezolid 600 MG in Premix Bag 1 BAG IV SCH ×2 (10:42→23:40)
[2018-01-02] MEDS ORDERED: Haloperidol Lactate 5 MG/ML SDV IVPUSH PRN (14:23)
[2018-01-02] MEDS ORDERED: Furosemide 40 MG/4 ML VIAL IVPUSH ONE (14:37)
[2018-01-02] MEDS ORDERED: Bisacodyl 10 MG Supp RECTAL ONE (20:00)
[2018-01-02] MEDS: Benztropine 1 MG Tab PO SCH (20:45)
[2018-01-02] MEDS: Zolpidem 5 MG Tab PO PRN (21:59)
[2018-01-03] MEDS: methylPREDNISolone Sodium Succinate 40 MG/1 ML SDV IVPUSH SCH ×3 (04:32→16:29)
[2018-01-03] MEDS ORDERED: Magnesium Sulfate/Water 2 GM in Premix Bag 1 BAG IV ONE (08:00)
[2018-01-03] MEDS: Aspirin 81 MG Tab.Chew PO SCH (08:28)
[2018-01-03] MEDS: Sennosides 8.6 MG Tab PO SCH (08:29)
[2018-01-03] MEDS: Pantoprazole 40 MG Tab.CR PO SCH (08:29)
[2018-01-03] MEDS: Saccharomyces Boulardii (Probiotic) 250 MG Cap PO SCH (08:29)
[2018-01-03] MEDS: Cyanocobalamin (Vitamin B12) 1,000 MCG Tab PO SCH (08:29)
[2018-01-03] MEDS: guaiFENesin 600 MG Tab.ER PO SCH ×2 (08:29→20:01)
[2018-01-03] MEDS: Enoxaparin 40 MG/0.4 ML Syringe SUBCUT SCH (08:29)
[2018-01-03] MEDS: Metoprolol Tartrate 25 MG Tab PO SCH ×2 (08:30→20:01)
[2018-01-03] MEDS: Albuterol/Ipratropium 3.0-0.5 MG/3 ML Neb Soln NEB SCH ×2 (08:58→20:27)
[2018-01-03] MEDS ORDERED: Potassium Chloride 20 MEQ Tab.ER PO ONE (09:00)
--- NOTE | 2018-01-03 09:52 | PCM.PN ---
- General Info Date of Service: 01/03/18 Admission Dx/Problem (Free Text): Admission Diagnosis/Problem Admission Diagnosis/Problem UTI, Urinary tract infectious disease Subjective Update: In to see Muna today. She is much more alert and less confused. She denies any hallucination and has had a very good day and night. She denies any pain but states she is still somewhat short of breath. No other concerns. Nursing reports her oxygen saturations drop into the upper 70's to low 80's when she lays on her right side. Patient and family refuse BiPAP mask and patient says she will not wear it again. I don't believe she needs it currently. Saturations in the upper 90-'s when she is on her back or other side. Oxygen has been 2-3L. Nursing reported a run of V-tac today. Potassium and magnesium have been low and will be supplemented. Verbal order given to obtain 12-lead EKG should patient return to V-tac rhythm. Updated patients 2 sons on progress and they voiced understanding. Today is the first day of her medication adjustment. She did receive ambien last night and responded well to this. Functional Status: Reports: Pain Controlled, Tolerating Diet, Ambulating, Urinating, Incentive Spirometry. Denies: New Symptoms - Review of Systems General: Reports: No Symptoms. Denies: Fever, Weakness, Fatigue, Malaise, Chills HEENT: Reports: No Symptoms. Denies: Sore Throat Pulmonary: Reports: Shortness of Breath. Denies: Cough, Sputum, Wheezing Cardiovascular: Reports: Dyspnea on Exertion. Denies: Chest Pain, Palpitations , Lightheadedness Gastrointestinal: Reports: No Symptoms. Denies: Abdominal Pain, Constipation, Diarrhea, Nausea, Vomiting Genitourinary: Reports: No Symptoms. Denies: Dysuria, Frequency, Burning, Pain , Urgency Musculoskeletal: Reports: No Symptoms Skin: Reports: No Symptoms Neurological: Reports: Confusion (Much improved ). Denies: Pre-Existing Deficit Psychiatric: Reports: No Symptoms. Denies: Depression, Mood Lability, Anxiety, Agitation, Hallucinations - Patient Data Vitals - Most Recent: Last Vital Signs Temp 97.6 F 01/03/18 08:00 Pulse 97 01/03/18 08:30 Resp 18 01/03/18 08:00 BP 156/68 H 08/31/18 08:30 Pulse Ox 91 L 01/03/18 09:00 Weight - Most Recent: 147 lb 12.8 oz I&O - Last 24 Hours: Intake & Output 01/02/18 01/03/18 01/03/18 22:59 06:59 14:59 Intake Total 120 700 Output Total 1000 1250 300 Balance -710 -715 -432 Lab Results Last 24 Hours: Laboratory Results - last 24 hr 01/02/18 01/02/18 01/03/18 Range/Units 14:10 15:09 06:28 WBC 7.81 (3.98-10.04) K/mm3 RBC 3.91 L (3.98-5.22) M/mm3 Hgb 11.1 L (11.2-15.7) gm/L Hct 35.8 (34.1-44.9) % MCV 91.6 (79.4-94.8) fl MCH 28.4 (25.6-32.2) pg MCHC 31.0 L (32.2-35.5) g/dl RDW Std Deviation 45.7 (36.4-46.3) fL Plt Count 242 (182-369) K/mm3 MPV 10.0 (9.4-12.3) fl Neut % (Auto) 86.5 H (34.0-71.1) % Lymph % (Auto) 6.3 L (19.3-51.7) % [place] % (Auto) 6.9 (4.7-12.5) % Eos % (Auto) 0 L (0.7-5.8) Baso % (Auto) 0.0 L (0.1-1.2) % Neut # (Auto) 6.76 H (1.56-6.13) K/mm3 Lymph # (Auto) 0.49 L (1.18-3.74) K/mm3 [place] # (Auto) 0.54 H (0.24-0.36) K/mm3 Eos # (Auto) 0.00 L (0.04-0.36) K/mm3 Baso # (Auto) 0.00 L (0.01-0.08) K/mm3 Manual Slide Review Abnormal smear Puncture Site Lt radial ABG pH 7.44 (7.35-7.45) ABG pCO2 50.4 H (35.0-45.0) mmHg ABG pO2 75.0 L (80.0-100.0) mmHg ABG HCO3 33.5 H (22.0-26.0) meq/L ABG O2 Saturation 94.6 L (96.0-97.0) % ABG Base Excess 8.3 H (-2-2.0) Alexander Test Positive A-a Gradient 41 mmHg O2 Delivery Device Nasal cannula Oxygen Flow Rate 2.0 FiO2 28.00 (21.00-100.00) % Sodium (136-145) mEq/L Potassium (3.5-5.1) mEq/L Chloride (98-107) mEq/L Carbon Dioxide (21-32) mEq/L Anion Gap (5-15) BUN (7-18) mg/dL Creatinine (0.55-1.02) mg/dL Est Cr Clr Drug Dosing mL/min Estimated GFR (MDRD) (>60) mL/min BUN/Creatinine Ratio (14-18) Glucose (83-115) mg/dL Calcium (8.5-10.1) mg/dL Magnesium (1.8-2.4) mg/dl C-Reactive Protein (<1.0) mg/dL Urine Color Light yellow (Yellow) Urine Appearance Clear (Clear) Urine pH 7.0 (5.0-8.0) Ur Specific [place] 1.020 (1.005-1.030) Urine Protein Negative (Negative) Urine Glucose (UA) Negative (Negative) Urine Ketones Negative (Negative) Urine Occult Blood Negative (Negative) Urine Nitrite Negative (Negative) Urine Bilirubin Negative (Negative) Urine Urobilinogen 0.2 (0.2-1.0) Ur Leukocyte Esterase Trace H (Negative) Urine RBC 0-5 (0-5) /hpf Urine WBC 10-20 H (0-5) /hpf Ur Epithelial Cells 10-20 H (0-5) /hpf Urine Bacteria Rare (FEW) /hpf Urine Mucus Not seen (FEW) /hpf 01/03/18 Range/Units 06:28 WBC (3.98-10.04) K/mm3 RBC (3.98-5.22) M/mm3 Hgb (11.2-15.7) gm/L Hct (34.1-44.9) % MCV (79.4-94.8) fl MCH (25.6-32.2) pg MCHC (32.2-35.5) g/dl RDW Std Deviation (36.4-46.3) fL Plt Count (182-369) K/mm3 MPV (9.4-12.3) fl Neut % (Auto) (34.0-71.1) % Lymph % (Auto) (19.3-51.7) % [place] % (Auto) (4.7-12.5) % Eos % (Auto) (0.7-5.8) Baso % (Auto) (0.1-1.2) % Neut # (Auto) (1.56-6.13) K/mm3 Lymph # (Auto) (1.18-3.74) K/mm3 [place] # (Auto) (0.24-0.36) K/mm3 Eos # (Auto) (0.04-0.36) K/mm3 Baso # (Auto) (0.01-0.08) K/mm3 Manual Slide Review Puncture Site ABG pH (7.35-7.45) ABG pCO2 (35.0-45.0) mmHg ABG pO2 (80.0-100.0) mmHg ABG HCO3 (22.0-26.0) meq/L ABG O2 Saturation (96.0-97.0) % ABG Base Excess (-2-2.0) Alexander Test A-a Gradient mmHg O2 Delivery Device Oxygen Flow Rate FiO2 (21.00-100.00) % Sodium 142 (136-145) mEq/L Potassium 3.3 L (3.5-5.1) mEq/L Chloride 102 (98-107) mEq/L Carbon Dioxide 39 H (21-32) mEq/L Anion Gap 4.3 L (5-15) BUN 13 (7-18) mg/dL Creatinine 0.8 (0.55-1.02) mg/dL Est Cr Clr Drug Dosing 59.59 mL/min Estimated GFR (MDRD) > 60 (>60) mL/min BUN/Creatinine Ratio 16.3 (14-18) Glucose 142 H (83-115) mg/dL Calcium 9.3 (8.5-10.1) mg/dL Magnesium 1.7 L (1.8-2.4) mg/dl C-Reactive Protein 1.7 H* (<1.0) mg/dL Urine Color (Yellow) Urine Appearance (Clear) Urine pH (5.0-8.0) Ur Specific [place] (1.005-1.030) Urine Protein (Negative) Urine Glucose (UA) (Negative) Urine Ketones (Negative) Urine Occult Blood (Negative) Urine Nitrite (Negative) Urine Bilirubin (Negative) Urine Urobilinogen (0.2-1.0) Ur Leukocyte Esterase (Negative) Urine RBC (0-5) /hpf Urine WBC (0-5) /hpf Ur Epithelial Cells (0-5) /hpf Urine Bacteria (FEW) /hpf Urine Mucus (FEW) /hpf Javed Results Last 24 Hours: Microbiology 12/30/17 01:55 Aerobic Blood Culture - Preliminary Blood - Venous NO GROWTH AFTER 4 DAYS Anaerobic Blood Culture - Preliminary NO GROWTH AFTER 4 DAYS 12/30/17 02:05 Aerobic Blood Culture - Preliminary Blood - Venous - Lab Draw NO GROWTH AFTER 4 DAYS Anaerobic Blood Culture - Preliminary NO GROWTH AFTER 4 DAYS 12/30/17 09:00 Gram Stain - Final Sputum - Expectorated Sputum Culture - Final Haemophilus Influenzae 12/30/17 07:00 Urine Culture - Final Urine, Quick Cath (In-Out) Enterococcus Faecium Vre Med Orders - Current: Current Medications Acetaminophen (Tylenol) 650 mg PO Q4H PRN PRN Reason: Pain (Mild 1-3)/fever Last Admin: 01/02/18 15:10 Dose: 650 mg Albuterol/Ipratropium (Duoneb 3.0-0.5 Mg/3 Ml) 3 ml NEB Q4H PRN PRN Reason: Shortness Of Breath/wheezing Last Admin: 01/02/18 13:57 Dose: 3 ml Albuterol/Ipratropium (Duoneb 3.0-0.5 Mg/3 Ml) 3 ml NEB BID COUNT INCLUDES THE [facility] Last Admin: 01/03/18 08:58 Dose: 3 ml Aspirin (Aspirin) 81 mg PO DAILY COUNT INCLUDES THE [facility] Last Admin: 01/03/18 08:28 Dose: 81 mg Benztropine Mesylate (Cogentin) 1 mg PO BEDTIME COUNT INCLUDES THE [facility] Last Admin: 01/02/18 20:45 Dose: 1 mg Bisacodyl (Dulcolax) 5 mg PO DAILY PRN PRN Reason: Constipation Last Admin: 01/02/18 08:23 Dose: 5 mg Cyanocobalamin (Vitamin B12) 1,000 mcg PO DAILY COUNT INCLUDES THE [facility] Last Admin: 01/03/18 08:29 Dose: 1,000 mcg Docusate Sodium (Colace) 100 mg PO BID PRN PRN Reason: Constipation Enoxaparin Sodium (Lovenox) 40 mg SUBCUT DAILY COUNT INCLUDES THE [facility] Last Admin: 01/03/18 08:29 Dose: 40 mg Guaifenesin (Mucinex) 1,200 mg PO BID COUNT INCLUDES THE [facility] Last Admin: 01/03/18 08:29 Dose: 1,200 mg Haloperidol Lactate (Haldol) 5 mg IVPUSH Q6H PRN PRN Reason: Acute psychosis Hydralazine HCl (Apresoline) 20 mg IVPUSH Q4H PRN PRN Reason: Hypertension Last Admin: 01/02/18 08:11 Dose: 20 mg Azithromycin 500 mg/ Sodium (Chloride) 250 mls @ 250 mls/hr IV Q24H COUNT INCLUDES THE [facility] Last Admin: 01/02/18 10:37 Dose: 250 mls/hr Linezolid 600 mg/ Premix 300 mls @ 300 mls/hr IV Q12H COUNT INCLUDES THE [facility] Last Admin: 01/02/18 23:40 Dose: 300 mls/hr Magnesium Sulfate 2 gm/ Premix 50 mls @ 25 mls/hr IV ONETIME ONE Stop: 01/03/18 09:59 Last Admin: 01/03/18 08:39 Dose: 25 mls/hr Lorazepam (Ativan) 0.5 mg PO BID PRN PRN Reason: Anxiety Last Admin: 01/01/18 10:42 Dose: 0.5 mg Lorazepam (Ativan) 0.5 mg IVPUSH Q6H PRN PRN Reason: Anxiety/Agitation Last Admin: 01/01/18 13:07 Dose: 0.5 mg Magnesium Sulfate (Pharmacy To Dose - Magnesium Replacement) 0 dose .XX ASDIRECTED PRN PRN Reason: RX TO WATCH MAG LEVELS Methylprednisolone Sodium Succinate (Solu-Medrol) 60 mg IVPUSH Q8H COUNT INCLUDES THE [facility] Last Admin: 01/03/18 04:32 Dose: 60 mg Metoprolol Tartrate (Lopressor) 12.5 mg PO BID COUNT INCLUDES THE [facility] Last Admin: 01/03/18 08:30 Dose: 12.5 mg Metoprolol Tartrate (Lopressor) 5 mg IVPUSH Q4H PRN PRN Reason: Tachycardia Ondansetron HCl (Zofran Odt) 4 mg PO Q6H PRN PRN Reason: nausea, able to take PO Ondansetron HCl (Zofran) 4 mg IV Q6H PRN PRN Reason: Nausea/Vomiting Pantoprazole Sodium (Protonix) 40 mg PO DAILY@0700 COUNT INCLUDES THE [facility] Last Admin: 01/03/18 08:29 Dose: 40 mg Polyethylene Glycol (Miralax) 17 gm PO DAILY PRN PRN Reason: Constipation Potassium Chloride (Pharmacy To Dose - Potassium Replacement) 0 dose .XX ASDIRECTED PRN PRN Reason: RX TO WATCH K LEVELS Saccharomyces Boulardii (Florastor) 250 mg PO DAILY COUNT INCLUDES THE [facility] Last Admin: 01/03/18 08:29 Dose: 250 mg Senna (Senna) 8.6 mg PO DAILY COUNT INCLUDES THE [facility] Last Admin: 01/03/18 08:29 Dose: 8.6 mg Senna/Docusate Sodium (Senna Plus) 1 tab PO BID PRN PRN Reason: Constipation Senna/Docusate Sodium (Senna Plus) 1 tab PO DAILY COUNT INCLUDES THE [facility] Last Admin: 01/03/18 08:29 Dose: 1 tab Trifluoperazine HCl (Trifluoperazine) 20 mg PO BEDTIME COUNT INCLUDES THE [facility] Last Admin: 01/02/18 20:45 Dose: 20 mg Trifluoperazine HCl (Trifluoperazine) 5 mg PO DAILY COUNT INCLUDES THE [facility] Stop: 01/05/18 09:01 Last Admin: 01/03/18 08:28 Dose: 5 mg Trifluoperazine HCl (Trifluoperazine) 10 mg PO DAILY COUNT INCLUDES THE [facility] Zolpidem Tartrate (Ambien) 5 mg PO BEDTIME PRN PRN Reason: Sleep Last Admin: 01/02/18 21:59 Dose: 5 mg Discontinued Medications Albuterol/Ipratropium (Duoneb 3.0-0.5 Mg/3 Ml) 3 ml NEB ONETIME ONE Stop: 12/30/17 04:16 Last Admin: 12/30/17 04:33 Dose: 3 ml Benztropine Mesylate (Cogentin) 1 mg PO DAILY COUNT INCLUDES THE [facility] Last Admin: 12/30/17 09:50 Dose: Not Given Bisacodyl (Dulcolax) 10 mg RECTAL ONETIME ONE Stop: 01/02/18 20:01 Furosemide (Lasix) 40 mg IVPUSH NOW ONE Stop: 01/02/18 14:38 Last Admin: 01/02/18 15:06 Dose: 40 mg Hydralazine HCl (Apresoline) 10 mg IVPUSH Q6H PRN PRN Reason: Hypertension Last Admin: 01/01/18 00:24 Dose: 10 mg Ceftriaxone Sodium 1 gm/ (Sodium Chloride) 100 mls @ 200 mls/hr IV ONETIME ONE Stop: 12/30/17 02:10 Last Admin: 12/30/17 02:16 Dose: 200 mls/hr Ceftriaxone Sodium 1 gm/ (Sodium Chloride) 100 mls @ 200 mls/hr IV Q24H MAREK Last Admin: 01/01/18 00:29 Dose: 200 mls/hr Sodium Chloride (Normal Saline) 1,000 mls @ 100 mls/hr IV ASDIRECTED COUNT INCLUDES THE [facility] Last Admin: 12/31/17 09:47 Dose: 100 mls/hr Azithromycin 250 mg/ Sodium (Chloride) 250 mls @ 250 mls/hr IV Q24H COUNT INCLUDES THE [facility] Lorazepam (Ativan) 0.5 mg IVPUSH Q6H PRN PRN Reason: Agitation Last Admin: 12/31/17 19:43 Dose: 0.5 mg Methylprednisolone Sodium Succinate (Solu-Medrol) 60 mg IVPUSH Q12H COUNT INCLUDES THE [facility] Last Admin: 12/31/17 04:19 Dose: 60 mg Morphine Sulfate (Morphine) 1 mg IVPUSH ONETIME ONE Stop: 12/30/17 12:23 Last Admin: 12/30/17 13:53 Dose: 1 mg Non-Formulary Medication (Cranberry [Cranberry]) 400 mg PO BID COUNT INCLUDES THE [facility] Potassium Chloride (Klor-Con M20) 40 meq PO ONETIME ONE Stop: 01/03/18 09:01 Last Admin: 01/03/18 08:28 Dose: 40 meq Prochlorperazine Edisylate (Compazine) 10 mg IM ONETIME ONE Stop: 01/01/18 18:45 Last Admin: 01/01/18 19:00 Dose: 10 mg Prochlorperazine Edisylate (Compazine) 5 mg IM Q6H PRN PRN Reason: Other Last Admin: 01/02/18 12:03 Dose: 5 mg - Exam Quality Assessment: Supplemental Oxygen, DVT Prophylaxis General: Alert, Cooperative, No Acute Distress HEENT: Pupils Equal, Pupils Reactive, EOMI, Mucous Membr. Moist/Mooar Neck: Supple, Trachea Midline, No JVD Lungs: Normal Respiratory Effort, Decreased Breath Sounds, Wheezing (mild diffuse ) Cardiovascular: Regular Rate, Regular Rhythm GI/Abdominal Exam: Normal Bowel Sounds, Soft, Non-Tender, No Distention, No Abnormal Bruit Extremities: Normal Inspection, Normal Range of Motion, Non-Tender, Normal Capillary Refill, Pedal Edema Peripheral Pulses: 2+: Dorsalis Pedis (L), Dorsalis Pedis (R), 3+: Radial (L), Radial (R) Skin: Warm, Dry, Intact Neurological: No New Focal Deficit Psy/Mental Status: Alert, Normal Affect, Normal Mood - Problem List & Annotations (1) Acute exacerbation of chronic obstructive pulmonary disease (COPD) SNOMED Code(s): 460545330 Code(s): J44.1 - CHRONIC OBSTRUCTIVE PULMONARY DISEASE W (ACUTE) EXACERBATION Status: Acute Current Visit: No (2) UTI (urinary tract infection) SNOMED Code(s): 12297937 Code(s): N39.0 - URINARY TRACT INFECTION, SITE NOT SPECIFIED Status: Acute Current Visit: No Qualifiers: Urinary tract infection type: site unspecified Hematuria presence: without hematuria Qualified Code(s): N39.0 - Urinary tract infection, site not specified (3) Acute hypercapnic respiratory failure SNOMED Code(s): 958854964 Code(s): J96.02 - ACUTE RESPIRATORY FAILURE WITH HYPERCAPNIA Status: Acute Priority: High Current Visit: Yes (4) Respiratory acidosis SNOMED Code(s): 11925315 Code(s): E87.2 - ACIDOSIS Status: Acute Priority: High Current Visit: Yes (5) Schizophrenia SNOMED Code(s): 22745876 Code(s): F20.9 - SCHIZOPHRENIA, UNSPECIFIED Status: Chronic Priority: High Current Visit: Yes Qualifiers: Schizophrenia type: unspecified Qualified Code(s): F20.9 - Schizophrenia, unspecified (6) GERD (gastroesophageal reflux disease) SNOMED Code(s): 898125541 Code(s): K21.9 - GASTRO-ESOPHAGEAL REFLUX DISEASE WITHOUT ESOPHAGITIS Status: Chronic Priority: Medium Current Visit: No Qualifiers: Esophagitis presence: esophagitis presence not specified Qualified Code(s) : K21.9 - Gastro-esophageal reflux disease without esophagitis (7) Chronic back pain SNOMED Code(s): 154857489 Code(s): M54.9 - DORSALGIA, UNSPECIFIED; G89.29 - OTHER CHRONIC PAIN Status : Chronic Priority: Medium Current Visit: No Qualifiers: Back pain location: back pain in unspecified location Back pain laterality : unspecified Qualified Code(s): M54.9 - Dorsalgia, unspecified; G89.29 - Other chronic pain (8) Anxiety SNOMED Code(s): 07897561 Code(s): F41.9 - ANXIETY DISORDER, UNSPECIFIED Status: Chronic Priority: Medium Current Visit: Yes (9) HTN (hypertension) SNOMED Code(s): 06124706 Code(s): I10 - ESSENTIAL (PRIMARY) HYPERTENSION Status: Chronic Priority : Medium Current Visit: No Qualifiers: Hypertension type: unspecified Qualified Code(s): I10 - Essential (primary ) hypertension (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) SNOMED Code(s): 92075814030449264 Code(s): Z86.19 - PERSONAL HISTORY OF OTHER INFECTIOUS AND PARASITIC DISEASES Status: Chronic Priority: Medium Current Visit: No (11) Acute psychosis SNOMED Code(s): 31237943, 16955692 Code(s): F23 - BRIEF PSYCHOTIC DISORDER Status: Acute Priority: High Current Visit: Yes - Problem List Review Problem List Initiated/Reviewed/Updated: Yes - My Orders Last 24 Hours: My Active Orders 01/02/18 14:23 Haloperidol Lactate [Haldol] 5 mg IVPUSH Q6H PRN 01/02/18 14:39 EKG 12 Lead [EK] Routine 01/02/18 14:40 EKG Documentation Completion [RC] ASDIRECTED 01/03/18 09:00 Trifluoperazine 5 mg PO DAILY 01/04/18 05:11 MAGNESIUM [CHEM] AM 01/06/18 09:00 Trifluoperazine 10 mg PO DAILY - Plan Plan:: I/P: Acute: Urinary Tract Infection -Family reports patient has been having urinary stones recently and seen urology -Hx/o UTIs with changes in mentation -Reportedly told daughter she thinks she may have a UTI a day or two before ED visit -UA in ED: Cloudy, 1+ protein, 1+ ketones, trace intact blood, 3+ leuk esterase, >100 WBC, Moderate bacteria -Urine culture - VRE -History of VRE a few months ago -Lactic acid 0.5 -No leukocytosis, CRP 15.0-->21.6-->9-->3.2-->1.7 -Blood cultures negative after 3 days -Started on 1gm Rocephin in ED - based on c/s results so far, switch to linezolide -IV fluids as ordered Hypercapnic respiratory failure, improved -Reportedly on 3L O2 normally -Hx/o COPD -Likely worsened by above - daughter reports similar episodes with prior UTIs -Initial ABG: pH 7.26, pCO2 102.1, pO2 83.0, HCO3 43.7, O2 saturation 94.4 -BIPAP started -0.5mg ativan for anxiety from mask -Repeat ABG: pH 7.31, pCO2 85.6, pO2 74, HCO3 42.0, O2 saturation 92.6 -Mentation improved with BIPAP -Monitor ABGs as needed -Sputum culture: Positive H. Flu; Received rocephin and Linezolide does have some coverage -Refusing BiPAP -ABG improved: pH7.44, pCO2 50.4, pO2 75, HCO3 33.5, O2 saturation 94.6 Exacerbation of COPD, improved -Productive cough - improved -Sputum culture sent - H. flu weakly positive -Start azithromycin -CXR shows emphysematous change -Solu-medrol 60mg Q12HR for now-> increase to Q8HR -IS once off BIPAP -Mucinex -Home nebulizer schedule and add PRN -Monitor and replete magnesium -RT consult -Repeat CXR: Emphysematous change, nothing acute Acute Psycosis, improved -Much more confused than normal - daughter reports patient can usually carry on a conversation -Likely worsened by above -Much more alert now -Hallucinating, paranoid, and reports we are doing experiments on her -Family reports long-standing history of schizophrenia which is difficult to control at times -Dr. Braun contacted: -Suggests Trifluoperazine 5mg AM in addition to usual PM dose; increase to 10mg in 3 days -Suggests 5mg Haldol PRN for acute psychotic episodes -Discussed possible need for psychiatric hospitalization -Discussed plan of care with family. SW discussed possible need for psychiatric hospitalization. -Much more alert and coherent today. Denies hallucinations or Chronic: Impaired vision hypertension recurrent bronchitis COPD cholelithiasis GERD hemorrhoids chronic back pain anxiety schizophrenia Hx/o VRE Plan: Admit to medical floor -> upgrade to ICU->downgraded to medical floor Other orders as indicated above PT/OT SW for discharge planning Routine AM labs Contact precautions DVT prophylaxis: Lovenox GI prophylaxis: Home PPI Code status: DNR/DNI; PCP: Dr. Abdullahi LOS >96 HRS due to need for continued IV antibiotics, acute psychosis requiring medication change and discussion with psychiatry.
[2018-01-03] MEDS: Azithromycin 500 MG in Sodium Chloride 0.9% 250 ML IV SCH (10:39)
[2018-01-03] MEDS: Linezolid 600 MG in Premix Bag 1 BAG IV SCH ×2 (12:04→23:21)
[2018-01-03] MEDS: Benztropine 1 MG Tab PO SCH (20:03)
[2018-01-04] MEDS: methylPREDNISolone Sodium Succinate 40 MG/1 ML SDV IVPUSH SCH ×2 (04:11→15:45)
[2018-01-04] MEDS: Pantoprazole 40 MG Tab.CR PO SCH (06:00)
--- NOTE | 2018-01-04 09:06 | PCM.PN ---
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 Denies: Shortness of Breath, Pleuritic Chest Pain Cardiovascular: Reports: Chest Pain. Denies: Dyspnea on Exertion, Edema, Lightheadedness Gastrointestinal: Denies: Abdominal Pain, Decreased Appetite, Nausea, Vomiting Genitourinary: Reports: No Symptoms Musculoskeletal: Reports: No Symptoms Skin: Denies: Cyanosis, Mottled, Pallor, Diaphoresis Neurological: Reports: Gait Disturbance. 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 Her cardiac markers however were negative. Her CO2 level went up to 43 this morning. She is on 3L with her supplemental O2. She has no other complaints this AM. - Patient Data Vitals - Most Recent: Last Vital Signs Temp 36.7 C 01/04/18 04:00 Pulse 66 01/04/18 04:00 Resp 16 01/04/18 04:00 BP 136/45 L 01/04/18 04:00 Pulse Ox 98 01/04/18 08:00 Weight - Most Recent: 69.127 kg I&O - Last 24 Hours: Intake & Output 01/03/18 01/04/18 01/04/18 22:59 06:59 14:59 Intake Total 420 600 Output Total 650 Balance 420 -50 Lab Results Last 24 Hours: Laboratory Results - last 24 hr 01/04/18 01/04/18 01/04/18 Range/Units 03:42 03:42 03:42 WBC 9.08 (3.98-10.04) K/mm3 RBC 3.96 L (3.98-5.22) M/mm3 Hgb 11.3 (11.2-15.7) gm/L Hct 37.0 (34.1-44.9) % MCV 93.4 (79.4-94.8) fl MCH 28.5 (25.6-32.2) pg MCHC 30.5 L (32.2-35.5) g/dl RDW Std Deviation 45.9 (36.4-46.3) fL Plt Count 220 (182-369) K/mm3 MPV 10.2 (9.4-12.3) fl Neut % (Auto) 79.2 H (34.0-71.1) % Lymph % (Auto) 9.1 L (19.3-51.7) % [place] % (Auto) 11.3 (4.7-12.5) % Eos % (Auto) 0 L (0.7-5.8) Baso % (Auto) 0.0 L (0.1-1.2) % Neut # (Auto) 7.18 H (1.56-6.13) K/mm3 Lymph # (Auto) 0.83 L (1.18-3.74) K/mm3 [place] # (Auto) 1.03 H (0.24-0.36) K/mm3 Eos # (Auto) 0.00 L (0.04-0.36) K/mm3 Baso # (Auto) 0.00 L (0.01-0.08) K/mm3 Manual Slide Review Abnormal smear Sodium 142 (136-145) mEq/L Potassium 3.6 (3.5-5.1) mEq/L Chloride 103 (98-107) mEq/L Carbon Dioxide 43 H* (21-32) mEq/L Anion Gap -0.4 L (5-15) BUN 17 (7-18) mg/dL Creatinine 0.8 (0.55-1.02) mg/dL Est Cr Clr Drug Dosing 59.59 mL/min Estimated GFR (MDRD) > 60 (>60) mL/min BUN/Creatinine Ratio 21.3 H (14-18) Glucose 127 H (83-115) mg/dL Calcium 9.1 (8.5-10.1) mg/dL Magnesium 2.2 (1.8-2.4) mg/dl CK-MB (CK-2) (0-3.6) ng/ml Troponin I < 0.017 (0.00-0.056) ng/mL C-Reactive Protein 1.0 (<1.0) mg/dL 01/04/18 Range/Units 03:42 WBC (3.98-10.04) K/mm3 RBC (3.98-5.22) M/mm3 Hgb (11.2-15.7) gm/L Hct (34.1-44.9) % MCV (79.4-94.8) fl MCH (25.6-32.2) pg MCHC (32.2-35.5) g/dl RDW Std Deviation (36.4-46.3) fL Plt Count (182-369) K/mm3 MPV (9.4-12.3) fl Neut % (Auto) (34.0-71.1) % Lymph % (Auto) (19.3-51.7) % [place] % (Auto) (4.7-12.5) % Eos % (Auto) (0.7-5.8) Baso % (Auto) (0.1-1.2) % Neut # (Auto) (1.56-6.13) K/mm3 Lymph # (Auto) (1.18-3.74) K/mm3 [place] # (Auto) (0.24-0.36) K/mm3 Eos # (Auto) (0.04-0.36) K/mm3 Baso # (Auto) (0.01-0.08) K/mm3 Manual Slide Review Sodium (136-145) mEq/L Potassium (3.5-5.1) mEq/L Chloride (98-107) mEq/L Carbon Dioxide (21-32) mEq/L Anion Gap (5-15) BUN (7-18) mg/dL Creatinine (0.55-1.02) mg/dL Est Cr Clr Drug Dosing mL/min Estimated GFR (MDRD) (>60) mL/min BUN/Creatinine Ratio (14-18) Glucose (83-115) mg/dL Calcium (8.5-10.1) mg/dL Magnesium (1.8-2.4) mg/dl CK-MB (CK-2) 0.7 (0-3.6) ng/ml Troponin I (0.00-0.056) ng/mL C-Reactive Protein (<1.0) mg/dL Javed Results Last 24 Hours: Microbiology 12/30/17 01:55 Aerobic Blood Culture - Preliminary Blood - Venous NO GROWTH AFTER 5 DAYS Anaerobic Blood Culture - Preliminary NO GROWTH AFTER 5 DAYS 12/30/17 02:05 Aerobic Blood Culture - Preliminary Blood - Venous - Lab Draw NO GROWTH AFTER 5 DAYS Anaerobic Blood Culture - Preliminary NO GROWTH AFTER 5 DAYS Med Orders - Current: Current Medications Acetaminophen (Tylenol) 650 mg PO Q4H PRN PRN Reason: Pain (Mild 1-3)/fever Last Admin: 01/02/18 15:10 Dose: 650 mg Albuterol/Ipratropium (Duoneb 3.0-0.5 Mg/3 Ml) 3 ml NEB Q4H PRN PRN Reason: Shortness Of Breath/wheezing Last Admin: 01/02/18 13:57 Dose: 3 ml Albuterol/Ipratropium (Duoneb 3.0-0.5 Mg/3 Ml) 3 ml NEB BID [facility] Last Admin: 01/03/18 20:27 Dose: 3 ml Aspirin (Aspirin) 81 mg PO DAILY [facility] Last Admin: 01/03/18 08:28 Dose: 81 mg Benztropine Mesylate (Cogentin) 1 mg PO BEDTIME [facility] Last Admin: 01/03/18 20:03 Dose: 1 mg Bisacodyl (Dulcolax) 5 mg PO DAILY PRN PRN Reason: Constipation Last Admin: 01/02/18 08:23 Dose: 5 mg Cyanocobalamin (Vitamin B12) 1,000 mcg PO DAILY [facility] Last Admin: 01/03/18 08:29 Dose: 1,000 mcg Docusate Sodium (Colace) 100 mg PO BID PRN PRN Reason: Constipation Enoxaparin Sodium (Lovenox) 40 mg SUBCUT DAILY [facility] Last Admin: 01/03/18 08:29 Dose: 40 mg Guaifenesin (Mucinex) 1,200 mg PO BID [facility] Last Admin: 01/03/18 20:01 Dose: 1,200 mg Haloperidol Lactate (Haldol) 5 mg IVPUSH Q6H PRN PRN Reason: Acute psychosis Hydralazine HCl (Apresoline) 20 mg IVPUSH Q4H PRN PRN Reason: Hypertension Last Admin: 01/02/18 08:11 Dose: 20 mg Linezolid 600 mg/ Premix 300 mls @ 300 mls/hr IV Q12H [facility] Last Admin: 01/03/18 23:21 Dose: 300 mls/hr Lorazepam (Ativan) 0.5 mg PO BID PRN PRN Reason: Anxiety Last Admin: 01/01/18 10:42 Dose: 0.5 mg Lorazepam (Ativan) 0.5 mg IVPUSH Q6H PRN PRN Reason: Anxiety/Agitation Last Admin: 01/01/18 13:07 Dose: 0.5 mg Magnesium Sulfate (Pharmacy To Dose - Magnesium Replacement) 0 dose .XX ASDIRECTED PRN PRN Reason: RX TO WATCH MAG LEVELS Methylprednisolone Sodium Succinate (Solu-Medrol) 60 mg IVPUSH Q12H [facility] Last Admin: 01/04/18 04:11 Dose: 60 mg Metoprolol Tartrate (Lopressor) 12.5 mg PO BID [facility] Last Admin: 01/03/18 20:01 Dose: 12.5 mg Metoprolol Tartrate (Lopressor) 5 mg IVPUSH Q4H PRN PRN Reason: Tachycardia Ondansetron HCl (Zofran Odt) 4 mg PO Q6H PRN PRN Reason: nausea, able to take PO Last Admin: 01/03/18 12:00 Dose: 4 mg Ondansetron HCl (Zofran) 4 mg IV Q6H PRN PRN Reason: Nausea/Vomiting Pantoprazole Sodium (Protonix) 40 mg PO DAILY@0700 [facility] Last Admin: 01/04/18 06:00 Dose: 40 mg Polyethylene Glycol (Miralax) 17 gm PO DAILY PRN PRN Reason: Constipation Potassium Chloride (Pharmacy To Dose - Potassium Replacement) 0 dose .XX ASDIRECTED PRN PRN Reason: RX TO WATCH K LEVELS Saccharomyces Boulardii (Florastor) 250 mg PO DAILY [facility] Last Admin: 01/03/18 08:29 Dose: 250 mg Senna (Senna) 8.6 mg PO DAILY [facility] Last Admin: 01/03/18 08:29 Dose: 8.6 mg Senna/Docusate Sodium (Senna Plus) 1 tab PO BID PRN PRN Reason: Constipation Senna/Docusate Sodium (Senna Plus) 1 tab PO DAILY [facility] Last Admin: 01/03/18 08:29 Dose: 1 tab Trifluoperazine HCl (Trifluoperazine) 20 mg PO BEDTIME [facility] Last Admin: 01/03/18 20:00 Dose: 20 mg Trifluoperazine HCl (Trifluoperazine) 5 mg PO DAILY [facility] Stop: 01/05/18 09:01 Last Admin: 01/03/18 08:28 Dose: 5 mg Trifluoperazine HCl (Trifluoperazine) 10 mg PO DAILY [facility] Zolpidem Tartrate (Ambien) 5 mg PO BEDTIME PRN PRN Reason: Sleep Last Admin: 01/02/18 21:59 Dose: 5 mg Discontinued Medications Albuterol/Ipratropium (Duoneb 3.0-0.5 Mg/3 Ml) 3 ml NEB ONETIME ONE Stop: 12/30/17 04:16 Last Admin: 12/30/17 04:33 Dose: 3 ml Benztropine Mesylate (Cogentin) 1 mg PO DAILY [facility] Last Admin: 12/30/17 09:50 Dose: Not Given Bisacodyl (Dulcolax) 10 mg RECTAL ONETIME ONE Stop: 01/02/18 20:01 Furosemide (Lasix) 40 mg IVPUSH NOW ONE Stop: 01/02/18 14:38 Last Admin: 01/02/18 15:06 Dose: 40 mg Hydralazine HCl (Apresoline) 10 mg IVPUSH Q6H PRN PRN Reason: Hypertension Last Admin: 01/01/18 00:24 Dose: 10 mg Ceftriaxone Sodium 1 gm/ (Sodium Chloride) 100 mls @ 200 mls/hr IV ONETIME ONE Stop: 12/30/17 02:10 Last Admin: 12/30/17 02:16 Dose: 200 mls/hr Ceftriaxone Sodium 1 gm/ (Sodium Chloride) 100 mls @ 200 mls/hr IV Q24H [facility] Last Admin: 01/01/18 00:29 Dose: 200 mls/hr Sodium Chloride (Normal Saline) 1,000 mls @ 100 mls/hr IV ASDIRECTED [facility] Last Admin: 12/31/17 09:47 Dose: 100 mls/hr Azithromycin 250 mg/ Sodium (Chloride) 250 mls @ 250 mls/hr IV Q24H [facility] Azithromycin 500 mg/ Sodium (Chloride) 250 mls @ 250 mls/hr IV Q24H [facility] Last Admin: 01/03/18 10:39 Dose: 250 mls/hr Magnesium Sulfate 2 gm/ Premix 50 mls @ 25 mls/hr IV ONETIME ONE Stop: 01/03/18 09:59 Last Admin: 01/03/18 08:39 Dose: 25 mls/hr Lorazepam (Ativan) 0.5 mg IVPUSH Q6H PRN PRN Reason: Agitation Last Admin: 12/31/17 19:43 Dose: 0.5 mg Methylprednisolone Sodium Succinate (Solu-Medrol) 60 mg IVPUSH Q12H [facility] Last Admin: 12/31/17 04:19 Dose: 60 mg Methylprednisolone Sodium Succinate (Solu-Medrol) 60 mg IVPUSH Q8H [facility] Last Admin: 01/03/18 11:54 Dose: 60 mg Morphine Sulfate (Morphine) 1 mg IVPUSH ONETIME ONE Stop: 12/30/17 12:23 Last Admin: 12/30/17 13:53 Dose: 1 mg Non-Formulary Medication (Cranberry [Cranberry]) 400 mg PO BID [facility] Potassium Chloride (Klor-Con M20) 40 meq PO ONETIME ONE Stop: 01/03/18 09:01 Last Admin: 01/03/18 08:28 Dose: 40 meq Prochlorperazine Edisylate (Compazine) 10 mg IM ONETIME ONE Stop: 01/01/18 18:45 Last Admin: 01/01/18 19:00 Dose: 10 mg Prochlorperazine Edisylate (Compazine) 5 mg IM Q6H PRN PRN Reason: Other Last Admin: 01/02/18 12:03 Dose: 5 mg - Exam Quality Assessment: Supplemental Oxygen General: Alert, Cooperative, No Acute Distress HEENT: Pupils Equal, Pupils Reactive, EOMI, Mucous Membr. Moist/Worth Neck: Supple, Trachea Midline Lungs: Normal Respiratory Effort, Decreased Breath Sounds Cardiovascular: Regular Rate, Regular Rhythm GI/Abdominal Exam: Normal Bowel Sounds, Soft, Non-Tender, No Organomegaly, No Distention, No Abnormal Bruit (Female) Exam: Deferred Back Exam: Normal Inspection, Decreased Range of Motion Extremities: Normal Inspection, Normal Range of Motion, Non-Tender, No Pedal Edema, Normal Capillary Refill Peripheral Pulses: 2+: Dorsalis Pedis (L), Dorsalis Pedis (R) Skin: Warm, Dry, Intact Neurological: No New Focal Deficit. No: Normal Gait Psy/Mental Status: Alert, Normal Affect, Normal Mood - Problem List Review Problem List Initiated/Reviewed/Updated: Yes - My Orders Last 24 Hours: My Active Orders 01/04/18 03:22 EKG 12 Lead [EK] Routine 01/04/18 03:24 EKG Documentation Completion [RC] ASDIRECTED - Plan Plan:: I/P: Acute: Chest Pain -ANIKA on Anteroseptal lead EKG-New -CE x1 negative this AM; repeat this afternoon -On ASA and BB -Check for Lipid Panel Urinary Tract Infection -Family reports patient has been having urinary stones recently and seen urology -Hx/o UTIs with changes in mentation -Reportedly told daughter she thinks she may have a UTI a day or two before ED visit -UA in ED: Cloudy, 1+ protein, 1+ ketones, trace intact blood, 3+ leuk esterase, >100 WBC, Moderate bacteria -Urine culture - VRE -History of VRE a few months ago -Lactic acid 0.5 -No leukocytosis, CRP 15.0-->21.6-->9-->3.2-->1.7 -Blood cultures negative after 3 days -Started on 1gm Rocephin in ED - based on c/s results so far, switch to linezolide -IV fluids as ordered Hypercapnic Respiratory Failure, Slightly worse today -Reportedly on 3L O2 normally -Hx/o COPD -Likely worsened by above - daughter reports similar episodes with prior UTIs -Initial ABG: pH 7.26, pCO2 102.1, pO2 83.0, HCO3 43.7, O2 saturation 94.4 -BIPAP started -0.5mg ativan for anxiety from mask -Repeat ABG: pH 7.31, pCO2 85.6, pO2 74, HCO3 42.0, O2 saturation 92.6 -Mentation improved with BIPAP -Monitor ABGs as needed -Sputum culture: Positive H. Flu; Received rocephin and Linezolide does have some coverage -Refusing BiPAP -ABG improved: pH7.44, pCO2 50.4, pO2 75, HCO3 33.5, O2 saturation 94.6 Exacerbation of COPD, improved -Productive cough - improved -Sputum culture sent - H. flu weakly positive -Start azithromycin -CXR shows emphysematous change -Solu-medrol 60mg Q12HR for now-> increase to Q8HR -IS once off BIPAP -Mucinex -Home nebulizer schedule and add PRN -Monitor and replete magnesium -RT consult -Repeat CXR: Emphysematous change, nothing acute Acute Psycosis, improved -Much more confused than normal - daughter reports patient can usually carry on a conversation -Likely worsened by above -Much more alert now -Hallucinating, paranoid, and reports we are doing experiments on her -Family reports long-standing history of schizophrenia which is difficult to control at times -Dr. Braun contacted: -Suggests Trifluoperazine 5mg AM in addition to usual PM dose; increase to 10mg in 3 days -Suggests 5mg Haldol PRN for acute psychotic episodes -Discussed possible need for psychiatric hospitalization -Discussed plan of care with family. SW discussed possible need for psychiatric hospitalization. -Much more alert and coherent today. Denies hallucinations or Chronic: Impaired vision hypertension recurrent bronchitis COPD cholelithiasis GERD hemorrhoids chronic back pain anxiety schizophrenia Hx/o VRE Plan: She is clinically stable orders as indicated above Continue PT/OT SW for discharge planning Routine AM labs Contact precautions DVT prophylaxis: Lovenox GI prophylaxis: Home PPI Code status: DNR/DNI; PCP: Dr. Abdullahi LOS >96 HRS due to acute onset of chest pain, the need for continued IV antibiotics, acute psychosis requiring medication change and discussion with psychiatry.
[2018-01-04] MEDS: Saccharomyces Boulardii (Probiotic) 250 MG Cap PO SCH (09:18)
[2018-01-04] MEDS: Aspirin 81 MG Tab.Chew PO SCH (09:19)
[2018-01-04] MEDS: Sennosides 8.6 MG Tab PO SCH (09:19)
[2018-01-04] MEDS: guaiFENesin 600 MG Tab.ER PO SCH ×2 (09:19→20:25)
[2018-01-04] MEDS: Enoxaparin 40 MG/0.4 ML Syringe SUBCUT SCH (09:21)
[2018-01-04] MEDS: Cyanocobalamin (Vitamin B12) 1,000 MCG Tab PO SCH (09:21)
[2018-01-04] MEDS: Metoprolol Tartrate 25 MG Tab PO SCH ×2 (09:22→20:25)
[2018-01-04] MEDS: Albuterol/Ipratropium 3.0-0.5 MG/3 ML Neb Soln NEB SCH ×2 (09:55→20:03)
[2018-01-04] MEDS: Linezolid 600 MG in Premix Bag 1 BAG IV SCH ×2 (10:45→23:37)
[2018-01-04] MEDS: Potassium Chloride 20 MEQ Tab.ER PO SCH ×2 (10:45→15:45)
[2018-01-04] MEDS: Benztropine 1 MG Tab PO SCH (20:25)
[2018-01-04] MEDS: Zolpidem 5 MG Tab PO PRN (21:33)
[2018-01-05] MEDS: methylPREDNISolone Sodium Succinate 40 MG/1 ML SDV IVPUSH SCH (03:51)
[2018-01-05] MEDS: Pantoprazole 40 MG Tab.CR PO SCH (06:17)
[2018-01-05] MEDS: Cyanocobalamin (Vitamin B12) 1,000 MCG Tab PO SCH (08:10)
[2018-01-05] MEDS: Aspirin 81 MG Tab.Chew PO SCH (08:12)
[2018-01-05] MEDS: Metoprolol Tartrate 25 MG Tab PO SCH (08:12)
[2018-01-05] MEDS: Saccharomyces Boulardii (Probiotic) 250 MG Cap PO SCH (08:12)
[2018-01-05] MEDS: guaiFENesin 600 MG Tab.ER PO SCH (08:18)
[2018-01-05 08:19] VITALS: BP 110/80
[2018-01-05] MEDS: Enoxaparin 40 MG/0.4 ML Syringe SUBCUT SCH (08:19)
[2018-01-05] MEDS: Albuterol/Ipratropium 3.0-0.5 MG/3 ML Neb Soln NEB SCH (08:37)
[2018-01-05] MEDS: Sennosides 8.6 MG Tab PO SCH (09:06)
[2018-01-05] MEDS: Linezolid 600 MG in Premix Bag 1 BAG IV SCH (11:34)
--- NOTE | 2018-01-05 11:46 | PCM.DCSUM1 ---
Discharge Summary - Hospital Course Brief History: Muna Garces is a 77 yo female who presented to our ED late last night with concerns over worsening confusion and back pain. Family reports the patient does have baseline confusion occasionally, however this was noted to be much worse. In the ED temp was 98.4. Pulse 93. Blood pressure 134/55. She was tachypneic with a respiratory rate of 22. Oxygen saturations was 96% on 3 L. Labs are obtained: CBC is normal 8.09. Hemoglobin 11.3. Hematocrit 37.2. She is normocytic. Platelets are low at 176,000. Neutrophils are normal at 66.9%. Sodium is 143. Potassium 3.8. Chloride 103. Carbon dioxide is very high at 42. Anion gap was low at 1.8. BUN is 10. Creatinine 0.7. EGFR greater than 60. Glucose is 138. Lactic acid 0.5. Calcium 9.7. Magnesium 1.8. Bilirubin 0.4. AST is 12, ALT 16, alkaline phosphatase 83. CRP is high at 15. Albumin is low at 2.9. UA was obtained and a cloudy appearance is noted. She has 1+ protein, 1+ ketones, trace occult blood, 3+ leuk esterase, greater than 100 WBCs, and moderate bacteria. Urine cultures pending. MRSA screen is negative. Blood cultures were obtained. She is subsequently admitted to the medical floor on telemetry. CODE STATUS is DNR/DNI. PCP is Dr. Abdullahi. She carries a history of: Impaired vision, hypertension, recurrent bronchitis, COPD, cholelithiasis, GERD, hemorrhoids, chronic back pain, anxiety , schizophrenia. Diagnosis: Stroke: No - Discharge Data Discharge Date: 01/05/18 Discharge Disposition: DC/Tfer to [facility] Condition: Good - Discharge Diagnosis/Problem(s) (1) Chest pain in adult SNOMED Code(s): 50888092 ICD Code: R07.9 - CHEST PAIN, UNSPECIFIED Status: Resolved Current Visit : Yes (2) Acute hypercapnic respiratory failure SNOMED Code(s): 679090234 ICD Code: J96.02 - ACUTE RESPIRATORY FAILURE WITH HYPERCAPNIA Status: Resolved Priority: High Current Visit: Yes (3) Acute psychosis SNOMED Code(s): 45998338, 24685383 ICD Code: F23 - BRIEF PSYCHOTIC DISORDER Status: Resolved Priority: High Current Visit: Yes (4) Acute exacerbation of chronic obstructive pulmonary disease (COPD) SNOMED Code(s): 485884512 ICD Code: J44.1 - CHRONIC OBSTRUCTIVE PULMONARY DISEASE W (ACUTE) EXACERBATION Status: Resolved Current Visit: No (5) UTI (urinary tract infection) SNOMED Code(s): 50455750 ICD Code: N39.0 - URINARY TRACT INFECTION, SITE NOT SPECIFIED Status: Acute Current Visit: No Qualifiers: Urinary tract infection type: site unspecified Hematuria presence: without hematuria Qualified Code(s): N39.0 - Urinary tract infection, site not specified - Patient Summary/Data Operative Procedure(s) Performed: None Complications: None Consults: Consultations 12/30/17 08:42 Consult to Trust Accounts Supervisor [CONS] Routine OT Evaluation and Treatment [CONS] Routine PT Evaluation and Treatment [CONS] Routine Respiratory Care Assess and Treatment [CONS] Routine Labs Pending at D/C: None Recommended Follow-up Testing/Procedures: None Planned Operative Procedure(s) after DC: None - Patient Instructions Diet: Usual Diet as Tolerated Activity: As Tolerated Showering/Bathing: May Shower Notify Provider of: Fever, Increased Pain, Swelling and Redness, Nausea and/or Vomiting Other/Special Instructions: - Please take all new medications as directed. - Resume all NH medications as directed. - Continue all rotuine activities per PT /OT. - Use 2L supplemental O2 per RT's direction. - Use incentive spirometry as directed for 1 week. - Come back or seek immediate care should your symptoms persist or get worse - Discharge Plan *PRESCRIPTION DRUG MONITORING PROGRAM REVIEWED*: Not Applicable *COPY OF PRESCRIPTION DRUG MONITORING REPORT IN PATIENT BRYCE: Not Applicable Prescriptions/Med Rec: Haloperidol Lactate [Haldol] 5 mg IM Q6H PRN #5 ml PRN Reason: Acute Psychosis Linezolid [Zyvox] 600 mg PO 2100 #1 tab methylPREDNISolone [Medrol] 4 mg PO ASDIRECTED #1 dosepk Saccharomyces Boulardii [Florastor] 250 mg PO DAILY #5 cap Trifluoperazine 10 mg PO DAILY #30 tablet Home Medications: Home Meds Aspirin [Grainger Aspirin] 81 mg PO DAILY 01/13/15 [History] Benztropine [Cogentin] 1 mg PO BEDTIME 01/13/15 [History] Ipratropium [Atrovent HFA] 1 puff INH Q6H PRN 01/13/15 [History] Trifluoperazine 20 mg PO BEDTIME 01/13/15 [History] Docusate Sodium/Sennosides [Senokot-S] 1 tab PO DAILY 09/08/17 [History] Esomeprazole [NexIUM] 40 mg PO DAILY 09/08/17 [History] Albuterol/Ipratropium [DuoNeb 3.0-0.5 MG/3 ML] 3 ml .XX BID #60 neb 11/24/17 [Rx ] Cyanocobalamin (Vitamin B-12) [Vitamin B-12] 1 tab PO DAILY 11/24/17 [History] Metoprolol Tartrate 12.5 mg PO BID 11/24/17 [History] Acetaminophen [Tylenol] 650 mg PO Q4H PRN 12/30/17 [History] Cranberry 400 mg PO BID 12/30/17 [History] LORazepam [Ativan] 0.5 mg PO BID PRN 12/30/17 [History] Mag Hydrox/Al Hydrox/Simeth [Alum-Mag Hydroxide-Simeth Liq] 30 ml PO DAILY PRN 12/30/17 [History] Melatonin 3 mg PO DAILY PRN 12/30/17 [History] Sennosides [Senna] 8.6 mg PO DAILY 12/30/17 [History] Haloperidol Lactate [Haldol] 5 mg IM Q6H PRN #5 ml 01/05/18 [Rx] Linezolid [Zyvox] 600 mg PO 2100 #1 tab 01/05/18 [Rx] Saccharomyces Boulardii [Florastor] 250 mg PO DAILY #5 cap 01/05/18 [Rx] Trifluoperazine 10 mg PO DAILY #30 tablet 01/05/18 [Rx] methylPREDNISolone [Medrol] 4 mg PO ASDIRECTED #1 dosepk 01/05/18 [Rx] Patient Handouts: Chronic Obstructive Pulmonary Disease Exacerbation, Easy-to- Read, What You Need To Know About Antipsychotic Medicines, Urinary Tract Infection, Adult, [id number], Acute Respiratory Failure, Adult Referrals: Michel Abdullahi MD [Primary Care Provider] - - Discharge Summary/Plan Comment DC Time >30 min.: Yes (45 mins) Discharge Summary/Plan Comment: Discharge to [place] - General Info Date of Service: 01/05/18 Admission Dx/Problem (Free Text: Admission Diagnosis/Problem Admission Diagnosis/Problem UTI, Urinary tract infectious disease Subjective Update: Follow Up Functional Status: Reports: Pain Controlled, Tolerating Diet, Ambulating, Urinating. Denies: New Symptoms - Review of Systems General: Reports: Weakness, Malaise. Denies: Fever, Chills HEENT: Reports: No Symptoms Pulmonary: Reports: Shortness of Breath. Denies: Cough, Sputum Cardiovascular: Denies: Chest Pain, Dyspnea on Exertion, Lightheadedness Gastrointestinal: Denies: Abdominal Pain, Nausea, Vomiting Genitourinary: Reports: No Symptoms Musculoskeletal: Denies: Neck Pain Skin: Denies: Cyanosis, Pallor, Diaphoresis, Other Neurological: Reports: Gait Disturbance. Denies: Difficulty Walking, Weakness Psychiatric: Denies: Depression, Anxiety, Agitation, Hallucinations Systems Review Comment: No overnight or acute issues. She is doing relatively fine this AM. She reports no chest pain or any complaints. Her CO2 level is now back to 40. She afebrile w /o leukocytosis. - Patient Data Vitals - Most Recent: Last Vital Signs Temp 37.1 C 01/05/18 09:00 Pulse 74 01/05/18 08:12 Resp 18 01/05/18 09:00 BP 110/80 01/05/18 09:00 Pulse Ox 99 01/05/18 09:00 Weight - Most Recent: 68.175 kg I&O - Last 24 hours: Intake & Output 01/04/18 01/05/18 01/05/18 22:59 06:59 14:59 Intake Total 1220 625 Output Total 200 200 Balance 1020 625 -200 Lab Results - Last 24 hrs: Laboratory Results - last 24 hr 01/04/18 01/05/18 01/05/18 Range/Units 16:15 06:40 06:40 WBC 8.37 (3.98-10.04) K/mm3 RBC 3.93 L (3.98-5.22) M/mm3 Hgb 11.1 L (11.2-15.7) gm/L Hct 37.1 (34.1-44.9) % MCV 94.4 (79.4-94.8) fl MCH 28.2 (25.6-32.2) pg MCHC 29.9 L (32.2-35.5) g/dl RDW Std Deviation 45.4 (36.4-46.3) fL Plt Count 202 (182-369) K/mm3 MPV 10.3 (9.4-12.3) fl Neut % (Auto) 86.5 H (34.0-71.1) % Lymph % (Auto) 7.3 L (19.3-51.7) % [place] % (Auto) 5.5 (4.7-12.5) % Eos % (Auto) 0.2 L (0.7-5.8) Baso % (Auto) 0.0 L (0.1-1.2) % Neut # (Auto) 7.24 H (1.56-6.13) K/mm3 Lymph # (Auto) 0.61 L (1.18-3.74) K/mm3 [place] # (Auto) 0.46 H (0.24-0.36) K/mm3 Eos # (Auto) 0.02 L (0.04-0.36) K/mm3 Baso # (Auto) 0.00 L (0.01-0.08) K/mm3 Manual Slide Review Abnormal smear Sodium 141 (136-145) mEq/L Potassium 4.9 (3.5-5.1) mEq/L Chloride 104 (98-107) mEq/L Carbon Dioxide 40 H (21-32) mEq/L Anion Gap 1.9 L (5-15) BUN 21 H (7-18) mg/dL Creatinine 0.9 (0.55-1.02) mg/dL Est Cr Clr Drug Dosing 52.97 mL/min Estimated GFR (MDRD) > 60 (>60) mL/min BUN/Creatinine Ratio 23.3 H (14-18) Glucose 120 H (83-115) mg/dL Calcium 9.0 (8.5-10.1) mg/dL Magnesium 2.1 (1.8-2.4) mg/dl CK-MB (CK-2) < 0.5 (0-3.6) ng/ml Troponin I < 0.017 (0.00-0.056) ng/mL C-Reactive Protein 0.5 (<1.0) mg/dL NILSA Results - Last 24 hrs: Microbiology 12/30/17 01:55 Aerobic Blood Culture - Preliminary Blood - Venous NO GROWTH AFTER 6 DAYS Anaerobic Blood Culture - Preliminary NO GROWTH AFTER 6 DAYS 12/30/17 02:05 Aerobic Blood Culture - Preliminary Blood - Venous - Lab Draw NO GROWTH AFTER 6 DAYS Anaerobic Blood Culture - Preliminary NO GROWTH AFTER 6 DAYS Med Orders - Current: Current Medications Acetaminophen (Tylenol) 650 mg PO Q4H PRN PRN Reason: Pain (Mild 1-3)/fever Last Admin: 01/02/18 15:10 Dose: 650 mg Albuterol/Ipratropium (Duoneb 3.0-0.5 Mg/3 Ml) 3 ml NEB Q4H PRN PRN Reason: Shortness Of Breath/wheezing Last Admin: 01/02/18 13:57 Dose: 3 ml Albuterol/Ipratropium (Duoneb 3.0-0.5 Mg/3 Ml) 3 ml NEB BID [facility] Last Admin: 01/05/18 08:37 Dose: 3 ml Aspirin (Aspirin) 81 mg PO DAILY [facility] Last Admin: 01/05/18 08:12 Dose: 81 mg Benztropine Mesylate (Cogentin) 1 mg PO BEDTIME [facility] Last Admin: 01/04/18 20:25 Dose: 1 mg Bisacodyl (Dulcolax) 5 mg PO DAILY PRN PRN Reason: Constipation Last Admin: 01/02/18 08:23 Dose: 5 mg Cyanocobalamin (Vitamin B12) 1,000 mcg PO DAILY [facility] Last Admin: 01/05/18 08:10 Dose: 1,000 mcg Docusate Sodium (Colace) 100 mg PO BID PRN PRN Reason: Constipation Enoxaparin Sodium (Lovenox) 40 mg SUBCUT DAILY [facility] Last Admin: 01/05/18 08:19 Dose: 40 mg Guaifenesin (Mucinex) 1,200 mg PO BID [facility] Last Admin: 01/05/18 08:18 Dose: 1,200 mg Haloperidol Lactate (Haldol) 5 mg IVPUSH Q6H PRN PRN Reason: Acute psychosis Hydralazine HCl (Apresoline) 20 mg IVPUSH Q4H PRN PRN Reason: Hypertension Last Admin: 01/02/18 08:11 Dose: 20 mg Linezolid 600 mg/ Premix 300 mls @ 300 mls/hr IV Q12H [facility] Last Admin: 01/05/18 11:34 Dose: 300 mls/hr Lorazepam (Ativan) 0.5 mg PO BID PRN PRN Reason: Anxiety Last Admin: 01/01/18 10:42 Dose: 0.5 mg Lorazepam (Ativan) 0.5 mg IVPUSH Q6H PRN PRN Reason: Anxiety/Agitation Last Admin: 01/01/18 13:07 Dose: 0.5 mg Magnesium Sulfate (Pharmacy To Dose - Magnesium Replacement) 0 dose .XX ASDIRECTED PRN PRN Reason: RX TO WATCH MAG LEVELS Methylprednisolone Sodium Succinate (Solu-Medrol) 60 mg IVPUSH Q12H [facility] Last Admin: 01/05/18 03:51 Dose: 60 mg Metoprolol Tartrate (Lopressor) 12.5 mg PO BID [facility] Last Admin: 01/05/18 08:12 Dose: 12.5 mg Metoprolol Tartrate (Lopressor) 5 mg IVPUSH Q4H PRN PRN Reason: Tachycardia Ondansetron HCl (Zofran Odt) 4 mg PO Q6H PRN PRN Reason: nausea, able to take PO Last Admin: 01/03/18 12:00 Dose: 4 mg Ondansetron HCl (Zofran) 4 mg IV Q6H PRN PRN Reason: Nausea/Vomiting Pantoprazole Sodium (Protonix) 40 mg PO DAILY@0700 [facility] Last Admin: 01/05/18 06:17 Dose: 40 mg Polyethylene Glycol (Miralax) 17 gm PO DAILY PRN PRN Reason: Constipation Potassium Chloride (Pharmacy To Dose - Potassium Replacement) 0 dose .XX ASDIRECTED PRN PRN Reason: RX TO WATCH K LEVELS Saccharomyces Boulardii (Florastor) 250 mg PO DAILY [facility] Last Admin: 01/05/18 08:12 Dose: 250 mg Senna (Senna) 8.6 mg PO DAILY [facility] Last Admin: 01/05/18 09:06 Dose: Not Given Senna/Docusate Sodium (Senna Plus) 1 tab PO BID PRN PRN Reason: Constipation Senna/Docusate Sodium (Senna Plus) 1 tab PO DAILY [facility] Last Admin: 01/05/18 09:06 Dose: Not Given Trifluoperazine HCl (Trifluoperazine) 20 mg PO BEDTIME [facility] Last Admin: 01/04/18 20:26 Dose: 20 mg Trifluoperazine HCl (Trifluoperazine) 10 mg PO DAILY [facility] Zolpidem Tartrate (Ambien) 5 mg PO BEDTIME PRN PRN Reason: Sleep Last Admin: 01/04/18 21:33 Dose: 5 mg Discontinued Medications Albuterol/Ipratropium (Duoneb 3.0-0.5 Mg/3 Ml) 3 ml NEB ONETIME ONE Stop: 12/30/17 04:16 Last Admin: 12/30/17 04:33 Dose: 3 ml Benztropine Mesylate (Cogentin) 1 mg PO DAILY [facility] Last Admin: 12/30/17 09:50 Dose: Not Given Bisacodyl (Dulcolax) 10 mg RECTAL ONETIME ONE Stop: 01/02/18 20:01 Furosemide (Lasix) 40 mg IVPUSH NOW ONE Stop: 01/02/18 14:38 Last Admin: 01/02/18 15:06 Dose: 40 mg Hydralazine HCl (Apresoline) 10 mg IVPUSH Q6H PRN PRN Reason: Hypertension Last Admin: 01/01/18 00:24 Dose: 10 mg Ceftriaxone Sodium 1 gm/ (Sodium Chloride) 100 mls @ 200 mls/hr IV ONETIME ONE Stop: 12/30/17 02:10 Last Admin: 12/30/17 02:16 Dose: 200 mls/hr Ceftriaxone Sodium 1 gm/ (Sodium Chloride) 100 mls @ 200 mls/hr IV Q24H [facility] Last Admin: 01/01/18 00:29 Dose: 200 mls/hr Sodium Chloride (Normal Saline) 1,000 mls @ 100 mls/hr IV ASDIRECTED [facility] Last Admin: 12/31/17 09:47 Dose: 100 mls/hr Azithromycin 250 mg/ Sodium (Chloride) 250 mls @ 250 mls/hr IV Q24H [facility] Azithromycin 500 mg/ Sodium (Chloride) 250 mls @ 250 mls/hr IV Q24H [facility] Last Admin: 01/03/18 10:39 Dose: 250 mls/hr Magnesium Sulfate 2 gm/ Premix 50 mls @ 25 mls/hr IV ONETIME ONE Stop: 01/03/18 09:59 Last Admin: 01/03/18 08:39 Dose: 25 mls/hr Lorazepam (Ativan) 0.5 mg IVPUSH Q6H PRN PRN Reason: Agitation Last Admin: 12/31/17 19:43 Dose: 0.5 mg Methylprednisolone Sodium Succinate (Solu-Medrol) 60 mg IVPUSH Q12H [facility] Last Admin: 12/31/17 04:19 Dose: 60 mg Methylprednisolone Sodium Succinate (Solu-Medrol) 60 mg IVPUSH Q8H [facility] Last Admin: 01/03/18 11:54 Dose: 60 mg Morphine Sulfate (Morphine) 1 mg IVPUSH ONETIME ONE Stop: 12/30/17 12:23 Last Admin: 12/30/17 13:53 Dose: 1 mg Non-Formulary Medication (Cranberry [Cranberry]) 400 mg PO BID [facility] Potassium Chloride (Klor-Con M20) 40 meq PO ONETIME ONE Stop: 01/03/18 09:01 Last Admin: 01/03/18 08:28 Dose: 40 meq Potassium Chloride (Klor-Con M20) 40 meq PO Q4H [facility] Stop: 01/04/18 15:01 Last Admin: 01/04/18 15:45 Dose: 40 meq Prochlorperazine Edisylate (Compazine) 10 mg IM ONETIME ONE Stop: 01/01/18 18:45 Last Admin: 01/01/18 19:00 Dose: 10 mg Prochlorperazine Edisylate (Compazine) 5 mg IM Q6H PRN PRN Reason: Other Last Admin: 01/02/18 12:03 Dose: 5 mg Trifluoperazine HCl (Trifluoperazine) 5 mg PO DAILY [facility] Stop: 01/05/18 09:01 Last Admin: 01/05/18 08:18 Dose: 5 mg - Exam Quality Assessment: Reports: Supplemental Oxygen General: Reports: Alert, Oriented, Cooperative HEENT: Reports: Pupils Equal, Pupils Reactive, EOMI, Mucous Membr. Moist/[place] Neck: Reports: Supple, Trachea Midline, No JVD, No Thyromegaly Lungs: Reports: Normal Respiratory Effort, Decreased Breath Sounds Cardiovascular: Reports: Regular Rate, Regular Rhythm GI/Abdominal Exam: Normal Bowel Sounds, Soft, Non-Tender, No Organomegaly, No Distention, No Abnormal Bruit (Female) Exam: Deferred Rectal (Female) Exam: Deferred Back Exam: Reports: Normal Inspection, Decreased Range of Motion Extremities: Normal Inspection, Normal Range of Motion, Non-Tender, No Pedal Edema, Normal Capillary Refill Skin: Reports: Warm, Intact, Ecchymosis Neurological: Reports: No New Focal Deficit Psy/Mental Status: Reports: Alert, Normal Mood. Denies: Normal Affect, Anxious , Agitated, Suicidal Ideation, Hallucinations
== END 2018-01-05 14:45 | DRG 689 ==
LOC: JD.ED 00:33 → JD.ICU 03:45
PROVIDERS: ADMIT Internal Medicine; ATTEND Internal Medicine
PROC: 5A09357 Assistance with Respiratory Ventilation, Less than 24 Consecutive Hours, Continuous Positive Airway Pressure (ICD-10-PCS; principal; 2017-12-30)
DX: N39.0 Urinary tract infection, site not specified (principal); J44.9 Chronic obstructive pulmonary disease, unspecified; J96.02 Acute respiratory failure with hypercapnia; R06.00 Dyspnea, unspecified; R41.82 Altered mental status, unspecified; E87.2 Acidosis; J44.1 Chronic obstructive pulmonary disease with (acute) exacerbation; B95.2 Enterococcus as the cause of diseases classified elsewhere; I10 Essential (primary) hypertension; K21.9 Gastro-esophageal reflux disease without esophagitis; G89.29 Other chronic pain; M54.9 Dorsalgia, unspecified; F41.9 Anxiety disorder, unspecified; F20.9 Schizophrenia, unspecified; H54.7 Unspecified visual loss; R07.9 Chest pain, unspecified; Z16.21 Resistance to vancomycin; Z99.81 Dependence on supplemental oxygen; Z88.1 Allergy status to other antibiotic agents; Z88.2 Allergy status to sulfonamides; Z79.899 Other long term (current) drug therapy; Z79.82 Long term (current) use of aspirin; Z85.3 Personal history of malignant neoplasm of breast; Z90.10 Acquired absence of unspecified breast and nipple; Z96.649 Presence of unspecified artificial hip joint; Z87.891 Personal history of nicotine dependence; Z87.442 Personal history of urinary calculi; Z66 Do not resuscitate; Z91.19 Patient's noncompliance with other medical treatment and regimen
CPT/HCPCS: 36415; 71045; 80053; 81001; 83605; 83735; 85025; 86140; 87040 ×2; 93005; 96365; 99285; J0696; J7030; 36600; 71046; 71046-26; 80048; 82553; 82803; 84484; 87070; 87086; 87088; 87184; 87186; 87205; 87641; 94640; 94660; 97110-GO; 97110-GP; 97161-GP; 97167-GO; 97530-GO; 97530-GP; 99284; A9270-GY; J0360; J0456; J0780; J1650; J1940; J2020; J2060; J2270; J2920; J3475; J7040; J7050; J7620-GY